=== PATIENT | female | born 2000 | race Caucasian/White ===

== ENCOUNTER 2024-08-22 13:28 | Outpatient (CLI) | payer BC, SELFPAY | END 2024-08-22 13:29 | disposition home or self-care (01) | LOC: NFLDREF 08-23 11:27 | DX: N30.01 Acute cystitis with hematuria (principal); N39.0 Urinary tract infection, site not specified | CPT/HCPCS: 87086 ==

== ENCOUNTER 2024-12-07 11:47 | Outpatient (CLI) | payer BC, SELFPAY ==
--- NOTE | 2024-12-07 12:15 | CRLHL7_ITS ---
For Patients: As a result of the Century Cures Act, medical imaging exams and procedure reports are released immediately into your electronic medical record. You may view this report before your referring provider. If you have questions, please contact your health care provider. INDICATION: Bleeding in early COMPARISON: None TECHNIQUE: First trimester obstetric ultrasound, transvaginal approach, utilizing grayscale and color Doppler. FINDINGS: The uterus is normal in size and echogenicity. No suspicious uterine masses. An intrauterine gestational sac is present with mean sac diameter measuring 0.36 centimeters consistent with a 5 week and 1 day gestation. No pole or yolk sac are visualized. There is a small nabothian cyst in the cervix. The right ovary measures 3.6 x 1.9 x 2.6 cm and contains a likely corpus luteum measuring 2.4 centimeters in greatest dimension. There is normal arterial and venous color Doppler flow. The left ovary measures 2.4 x 1.1 x 1.5 cm. Physiologic appearance without a dominant cystic lesion or solid ovarian / adnexal mass. There is normal arterial and venous color Doppler flow. No free fluid. IMPRESSION: 1. An intrauterine gestational sac is present with mean sac diameter of 0.36 centimeters consistent with a 5 week 1 day gestation. There is no pole, likely secondary to early gestational age. Consider repeat exam in 2 weeks. 2. Otherwise, the remainder of the examination is unremarkable with incidental findings as detailed above. Dictated by Abe Le MD @ 12/07/2024 12:50:34 PM (Electronically Signed)
== END 2024-12-07 11:48 | disposition home or self-care (01) ==
LOC: US 11:49
PROVIDERS: Visit Provider Obstetrics & Gynecology
DX: O20.9 Hemorrhage in early pregnancy, unspecified (principal); Z3A.01 Less than 8 weeks gestation of pregnancy
CPT/HCPCS: 76817; 84702; 86850; 86900; 86901

== ENCOUNTER 2024-12-09 11:11 | Outpatient (CLI) | payer BC, SELFPAY | END 2024-12-09 11:12 | disposition home or self-care (01) | LOC: LAB 11:18 | PROVIDERS: Visit Provider Obstetrics & Gynecology | DX: O20.9 Hemorrhage in early pregnancy, unspecified (principal) | CPT/HCPCS: 36415; 84702 ==

== ENCOUNTER 2024-12-20 13:57 | Outpatient (CLI) | payer BC, SELFPAY ==
--- NOTE | 2024-12-20 14:00 | CRLHL7_ITS ---
For Patients: As a result of the Century Cures Act, medical imaging exams and procedure reports are released immediately into your electronic medical record. You may view this report before your referring provider. If you have questions, please contact your health care provider. INDICATION: Check viability and dates TECHNIQUE: Transabdominal and transvaginal scanning was performed. Transvaginal scanning was performed to better evaluate the IUP and adnexa. Ovarian blood flow was evaluated with color-flow doppler. COMPARISON: 12/07/2024 FINDINGS: There is a living IUP with gestational age of 7 weeks 2 days by LMP and 6 weeks 6 days by today`s crown-rump length. EDC based on today`s crown-rump length is 08/09/2025. The embryonic heart rate is measured at 94 beats per minute. The placenta is not yet formed. A 1.6 x 1.1 x 0.3 cm subchorionic hemorrhage is noted. The left ovary is not visualized. A right ovarian corpus luteum is demonstrated. The right ovary measures 3.5 x 2.3 x 2.2 cm. Ovarian blood flow is demonstrated with color-flow and pulsed Doppler. No adnexal mass or free fluid is apparent. IMPRESSION: 1. Living IUP with gestational age of 6 weeks 6 days by today`s crown-rump length and EDC of 08/09/2025. 2. 1.6 x 1.1 x 0.3 cm subchorionic hemorrhage. Dictated by Daniel Monahan MD @ 12/21/2024 2:10:41 PM (Electronically Signed)
== END 2024-12-20 13:58 | disposition home or self-care (01) ==
LOC: US 13:58
PROVIDERS: Visit Provider Midwife
DX: Z34.91 Encounter for supervision of normal pregnancy, unspecified, first trimester (principal); O20.9 Hemorrhage in early pregnancy, unspecified; Z3A.01 Less than 8 weeks gestation of pregnancy
CPT/HCPCS: 76817; 87086; 87491; 87591

== ENCOUNTER 2025-01-12 11:27 | Outpatient (CLI) | payer BC, SELFPAY ==
--- NOTE | 2025-01-12 11:30 | CRLHL7_ITS ---
For Patients: As a result of the Cures Act, medical imaging exams and procedure reports are released immediately into your electronic medical record. You may view this report before your referring provider. If you have questions, please contact your health care provider. OB ULTRASOUND FIRST TRIMESTER INDICATION: Follow-up viability (low FHR on prior ultrasound). TECHNIQUE: Real time carrillo scale imaging of the fetus was performed. Transabdominal. LMP: 11/09/2024. STUART by LMP: 08/06/2025. GA: 10 w, 4 d. Previous US: Yes 12/20/2024. STUART by US: 08/09/2025. CRL: 3.4 cm. 10 w 2 d. STUART: 08/08/2025. FHR: 178 BPM. Gestational sac: 4.8 cm. Appears within normal limits. Yolk sac: 4.5 mm. Appears within normal limits. Right ovary: Within normal limits. 4.0 x 1.7 x 2.3 cm. CL. Left ovary: N/V. IMPRESSION: Single living intrauterine with sonographic gestational age 10 weeks 2 days and sonographic due date 08/08/2025. Manish Morton M.D. Diagnostic Radiologist [email or web address] SP/Dictated by: Manish Morton MD @ 01/12/2025 5:40:00 PM (Electronically Signed)
== END 2025-01-12 11:28 | disposition home or self-care (01) ==
LOC: US 11:27
PROVIDERS: Visit Provider Midwife
DX: Z34.91 Encounter for supervision of normal pregnancy, unspecified, first trimester (principal); O28.3 Abnormal ultrasonic finding on antenatal screening of mother; Z3A.10 10 weeks gestation of pregnancy
CPT/HCPCS: 76801; 83021; 86592; 86703; 86704; 86706; 86762; 86787; 86803; 86850; 86900; 86901; 87086; 87340

== ENCOUNTER 2025-03-05 17:35 | Emergency (ER) | payer BC, SELFPAY ==
[2025-03-05 17:38] VITALS: BP 120/71; PULSE 76; RESP 16; TEMP 36.8; O2SAT 100; BMI 23.0
[2025-03-05 17:59] LABS: Appearance Urine Cloudy (Clear); Bilirubin Urine Negative (Negative); Blood Urine Negative (Negative); Color Urine Yellow (Yellow); Glucose Urine Trace (Negative); Ketones Urine Negative (Negative); Leukocyte Esterase Urine 1+ (Negative); Nitrite Urine Negative (Negative); Protein Urine Negative (Negative); Urobilinogen Urine 0.2 (0.2-1.0)
--- NOTE | 2025-03-05 18:08 | ED.GENADULT ---
HPI - General Adult General Chief complaint: Headache/Migraine Stated complaint: migraines Time Seen by Provider: 03/05/25 17:36 History of Present Illness HPI narrative: This 24-year-old female comes in reporting migraine type headache that was preceded with visual changes. This headache started a couple days ago. She states that she had some flickering vision in her periphery that occurred for 20 or 30 minutes prior to onset of the headache. Her vision returned to normal when the headache occurred. She felt better yesterday but again this morning she had similar recurrence of visual changes that resolved similarly with recurrence of headache. The patient is 18 weeks with her 2nd . She is otherwise in good health. She does not report any neurologic changes otherwise. Related Data Home Medications ?Medication ?Instructions ?Recorded ?Confirmed vitamins no.121-iron 28 tab PO 12/07/24 02/09/25 mg-folic acid 800 mcg tablet magnesium chelate, mal, threon mg PO 01/12/25 02/09/25 cholecalciferol (vitamin D3) 50 50 mcg PO QDAY 02/09/25 03/05/25 mcg (2,000 unit) capsule Previous Rx's ?Medication ?Instructions ?Recorded clotrimazole 1 % topical cream 1 applic topical BID 4 weeks #30 02/23/25 grams Allergies Allergy/AdvReac Type Severity Reaction Status Date / Time Sulfa (Sulfonamide Allergy Verified 02/09/25 14:19 Antibiotics) Review of Systems Status of ROS: Reports: 10 or more systems reviewed and unremarkable except as noted in History and below Narrative: Constitutional: No fevers, no weight gain or loss. Eyes: No discharge. Visual changes as described above. HENT: No congestion, no sore throat, no ear pain. Cardiovascular: No chest pain, no palpitations. Respiratory: No shortness of breath, no wheezes, no cough. Gastrointestinal: No abdominal pain, no vomiting, no diarrhea. Genitourinary: No dysuria, no hematuria. Musculoskeletal: Normal range of motion. Skin: No rashes, no pruritis. Neurological: No dizziness, weakness, sensory change, speech change. Endo/Heme/Allergies: No bruising or bleeding. No polydipsia. Pysch: no suicidality, no anxiety, no insomnia. All other systems reviewed and are negative. [facility] Medical History Bleeding in early ?O20.9 - Hemorrhage in early , unspecified (ICD-10) Anxiety ?F41.9 - Anxiety disorder, unspecified (ICD-10) Depression ?F32.A - Depression, unspecified (ICD-10) Surgical History History of lumbar discectomy ?Z98.890 - Other specified postprocedural states (ICD-10) Family History (Updated 12/20/24 @ 15:54 by Marisa Kaur CNM) Grandmother Breast cancer Mother Ovarian cancer Father High cholesterol Sister PCOS (polycystic ovarian syndrome) Social History Narrative: , 1 child. Non smoker. No alcohol use. Smoking Status: Former smoker How often do you have a drink containing alcohol: never AUDIT-C Alcohol total score: 0 Non-prescribed substance use: denies use Exam Narrative: Exam Narrative: Constitutional: Well-developed, well-nourished, no acute distress. HEENT: Normocephalic, atraumatic. Neck: Normal range of motion. Nontender. Supple. Heart: Regular. No murmurs. Normal rate. Intact distal pulses. Lungs: Clear to auscultation. No chest discomfort. No wheezes, rhonchi, or rales. Abdomen: Normal bowel sounds. Nontender. No rebound tenderness. Gravid. Genitalia: Deferred. Back: No midline tenderness. Normal range of motion. Extremities: Normal range of motion. No injury. Skin: Intact. No rash. Warm. No erythema or pallor. Neurologic: No altered sensation. No weakness. Alert and oriented. No facial asymmetry. Tongue is midline. [id number] is normal. No pronator drift. Endocrinology Physician strength is equal bilaterally. Able to raise each leg from the bed. Psychiatric: No suicidality. No anxiety or depression. No insomnia. Nursing notes and vitals signs are reviewed. Const: Vital Signs, click to edit/add: Vital Signs - 24 hr 03/05/25 17:38 Temperature 98.3 F Pulse Rate [Pulse Oximeter] 76 Respiratory Rate 16 Blood Pressure [Ri ght Upper Arm] 120/71 Pulse Oximetry 100 Oxygen Delivery Me thod Room Air Course Vital Signs Vital signs: Initial Vital Signs Temperature 98.3 F 03/05/25 17:38 Temperature Source Temporal Artery Scan 03/05/25 17:38 Pulse Rate 76 03/05/25 17:38 Respiratory Rate 16 03/05/25 17:38 Blood Pressure 120/71 03/05/25 17:38 Blood Pressure Mean 87 03/05/25 17:38 Blood Pressure Position Sitting 03/05/25 17:38 Pulse Oximetry 100 03/05/25 17:38 Oxygen Delivery Method Room Air 03/05/25 17:38 Vital Signs Temperature 98.3 F 03/05/25 17:38 Pulse Rate 76 03/05/25 17:38 Respiratory Rate 16 03/05/25 17:38 Blood Pressure 120/71 03/05/25 17:38 Pulse Oximetry 100 03/05/25 17:38 Oxygen Delivery Method Room Air 03/05/25 17:38 Temperature 98.3 F 03/05/25 17:38 Pulse Rate 76 03/05/25 17:38 Respiratory Rate 16 03/05/25 17:38 Blood Pressure 120/71 03/05/25 17:38 Pulse Oximetry 100 03/05/25 17:38 Oxygen Delivery Method Room Air 03/05/25 17:38 Medications Administered Medications: Discontinued Medications Generic Name Dose Route Start Last Admin Trade Name Freq PRN Reason Stop Dose Admin Diphenhydramine HCl 25 mg 03/05/25 18:04 03/05/25 18:34 Diphenhydramine 50 Mg/Ml Inj IVP 03/05/25 18:05 25 mg ONCE ONE Administration Sodium Chloride 1,000 mls @ 1,000 mls/hr 03/05/25 18:15 03/05/25 18:31 0.9 % Sodium Chloride 1000 Ml IV 03/05/25 19:14 1,000 mls/hr .Q1H DUDLEY Administration Ketorolac Tromethamine 15 mg 03/05/25 18:04 03/05/25 18:40 Ketorolac 30 Mg/Ml Inj IVP 03/05/25 18:05 15 mg ONCE ONE Administration Ondansetron HCl 4 mg 03/05/25 18:04 03/05/25 18:34 Ondansetron 2 Mg/Ml Inj IVP 03/05/25 18:05 4 mg ONCE ONE Administration Medical Decision Making MDM Narrative Medical decision making narrative: This patient comes in because of migraine headache with some prodrome all visual changes. Her neurologic exam is normal. She does not have any visual changes currently. She does describe symptoms that are typical of migraine headache. She is 18 weeks with her 2nd and everything has been going well in that regard. An IV was established where the patient did receive a L of normal saline along with 15 mg of Toradol, 4 mg Zofran, and 25 mg of Benadryl. This brought sufficient relief of her symptoms. I stated that Toradol as a 1 time dose should be okay at this stage in her . She does have follow-up appointment with her OB physician in 3 days. I did use bedside ultrasound to reassure her also with normal images of her . Urinalysis is obtained and shows 5-10 white blood cells per high-powered field but the patient is not having any symptoms of dysuria. She is agreeable to waiting for culture results if she should need an antibiotic. Lab Data Labs: Lab Results 03/05/25 Range/Units 17:30 Urine Color Yellow (Yellow) Urine Appearance Cloudy A (Clear) Urine pH 6.0 (5.0-8.5) Ur Specific Sassafras 1.020 (1.000-1.030) Urine Protein Negative (Negative) Urine Glucose (UA) Trace A (Negative) Urine Ketones Negative (Negative) Urine Blood Negative (Negative) Urine Nitrite Negative (Negative) Urine Bilirubin Negative (Negative) Urine Urobilinogen 0.2 (0.2-1.0) Ur Leukocyte Esterase 1+ A (Negative) Urine RBC 0-2 (0-2) Urine WBC 5-10 A (0-5) Ur Squamous Epith Cells Moderate A (None-Few) Urine Bacteria Many A (None) Discharge Plan Discharge Clinical Impression: Migraine Patient Disposition: Home, Self-Care Condition: Improved Additional Instructions: Continue current plans. Follow up with MD as scheduled. Return if worsening. Prescriptions: No Action PNV no.[id number] acid 28 mg iron- 800 mcg tablet PO magnesium chelate, mal, threon 200 mg magnesium/scoop powder PO cholecalciferol (vitamin D3) 50 mcg (2,000 unit) capsule 50 mcg PO QDAY clotrimazole 1 % cream 1 applic topical BID 28 Days Qty: 30 1RF Follow Up/Referrals: Provider,Not a Local [Primary Care Provider, Family Practice] Stand Alone Forms: [employer] Info Instructions Procedures Ultrasound Other exam #1: Anatomical areas examined: at 18 weeks gestation. Indications: The patient has migraine headache. Ultrasounds for reassurance. Description/findings: Normal anatomy and heart activity. Eighteen weeks gestation. Impression: Normal exam.
[2025-03-05 18:22] LABS: Bacteria Urine Many; RBC Urine 0-2 (0-2); Squamous Epithelial Cell Urine Moderate (None-Few)
[2025-03-05] MEDS: 0.9 % SODIUM CHLORIDE 1000 ml 1,000 ML IV (18:31)
[2025-03-05] MEDS: diphenhydrAMINE 50 MG/ML inj 25 MG IVP (18:34)
[2025-03-05] MEDS: ONDANSETRON 2 MG/ML inj 4 MG IVP (18:34)
[2025-03-05] MEDS: KETOROLAC 30 MG/ML inj 15 MG IVP (18:40)
== END 2025-03-05 19:40 | disposition home or self-care (01) ==
PROVIDERS: Emergency Provider Emergency Medicine Emergency Medical Services
DX: G43.909 Migraine, unspecified, not intractable, without status migrainosus (principal); Z3A.18 18 weeks gestation of pregnancy
CPT/HCPCS: 76857; 81001; 87086; 96365; 96375; 99284; J1200; J1885; J2405; J7030

== ENCOUNTER 2025-03-09 07:19 | Outpatient (CLI) | payer BC, SELFPAY ==
--- NOTE | 2025-03-09 07:15 | CRLHL7_ITS ---
For Patients: As a result of the 21st Century Cures Act, medical imaging exams and procedure reports are released immediately into your electronic medical record. You may view this report before your referring provider. If you have questions, please contact your health care provider. LMP: 10/30/2024. STUART by LMP: 08/06/2025. GA: 18w, 4d. INDICATION: screen. TECHNIQUE: Transabdominal obstetric images were obtained. CERVIX: Visualized. Measurement: 3.8 cm. POSITIONING: Multiple positions. AMNIOTIC FLUID: 4.8 cm SDP. PLACENTA POSITION: Anterior. Placenta tip to internal os: 3.2 cm. DOPPLER: heart rate: 149 bpm. Umbilical cord: 3-vessel. Biometry: BPD: 4.0 cm. 18w, 1d, 32 percent. HC: 15.1 cm. 18w, 1d, 22 percent. AC: 13.9 cm. 19w, 2d, 72 percent. FL: 2.8 cm. 18w, 3d, 39 percent. FL/AC ratio: 19.83 percent. HC/AC ratio: 1.08. EFW: 258 g. Weight: 0 lbs, 9 oz. age by this US: 18w, 3d. STUART by this US: 08/07/2025. Percentile by STUART: 60 percent. SURVEY: Observed Structures Cerebellum: Yes. 1.8 cm; 18w 3d. Cisterna Magna: Yes. 4.4 mm. Nuchal Fold: Yes. 3.7 mm. Lateral Ventricle: Yes. 7.5 mm. CSP: Yes. Midline Falx: Yes. Choroid Plexus: Yes. Spine: Yes. Stomach: Yes. Abd Cord Insertion: Yes. Urinary Bladder: Yes. Kidneys: Yes. Diaphragm: Yes. Nose/lips: Yes. Orbital view: Yes. Profile: Yes. Upper Extremities: Yes. Lower Extremities: Yes. Hands: Yes. Feet: Yes. Four-Chamber Heart: Yes. LVOT: Yes. RVOT: Yes. 3VV: Yes. 3VTV: Yes. IMPRESSION: 1. Concordance of clinical and sonographic dating. 2. Incomplete visualization of the right hand due to position. 3. Residual blood products about the lower uterine segment adjacent to the placenta measures 5.5 x 1.5 x 5.3 cm. 4. Intraplacental cyst is present measuring 1.3 x 0.8 x 1.1 cm. 5. Velamentous cord insertion appears to be present. 6. The choroid plexus appears somewhat heterogeneous and prominent, probably normal. 7. Would recommend short-term follow-up in 1-2 weeks regarding the choroid plexus and right hand. Alternatively, level 2 ultrasound consultation could be considered. Manish Morton M.D. Diagnostic Radiologist [email or web address] bM/Dictated by: Manish Morton MD @ 03/09/2025 11:19:00 AM (Electronically Signed)
== END 2025-03-09 07:20 | disposition home or self-care (01) ==
LOC: US 07:19
PROVIDERS: Visit Provider Midwife
DX: Z34.82 Encounter for supervision of other normal pregnancy, second trimester (principal); O35.02X0 Maternal care for (suspected) central nervous system malformation or damage in fetus, anencephaly, not applicable or unspecified; Z3A.18 18 weeks gestation of pregnancy
CPT/HCPCS: 76805

== ENCOUNTER 2025-06-16 12:02 | Outpatient (CLI) | payer BC, SELFPAY ==
--- OUTSIDE RECORDS SUMMARY | 2025-05-15 07:51 | XMS_ITS | Encounter Summary ---
Author Organization [facility] Address [address] [place] [id number] Care Team Providers Care Wall Insulation Sprayer Name Role Phone No Ref-Primary, Physician Primary Care Provider Isabelle Martínez APRN, CNM Unavailable [phone] Camila Sousa MD Unavailable [phone] Reason for Referral * Diagnostic Imaging Ultrasound (Routine) - Pending Review Specialty Diagnoses / Procedures Referred By Contac t Referred To Contact Radiology. Diagnoses Placental abnormality, second trimester Procedures [facility] Comprehensive Single F/U Kwabena Velez MD [address] [place] [address] Phone: tel: fax: Referral ID Status Reason Start Date Expiration Date V isits Requested Visits Authorized [id number] Pending Review 04/03/2025 04/03/2026 1 1 Reason for Visit * Diagnostic Imaging Ultrasound (Routine) - Pending Review Specialty Diagnoses / Procedures Referred By Contac t Referred To Contact Radiology. Diagnoses Placental abnormality, second trimester Procedures [facility] US Comprehensive Single F/U Kwabena Velez MD [address] [place] [address] Phone: tel: fax: Referral ID Status Reason Start Date Expiration Date V isits Requested Visits Authorized [id number] Pending Review 04/03/2025 04/03/2026 1 1 Encounter Details Date Type Department Care Team (Latest Contact Info) Description 05/15/2025 7:51 AM CDT - 05/15/2025 11:59 PM CDT Hospital Encounter [facility] [place] [address] [place] [phone] Roxanna Clinton MD [address] [place], [place] [id number] Placental abnormality, second trimester Discharge Disposition: Home or Self Care Social History Tobacco Use Types Packs/Day Years Used Date Smoking Tobacco: Former Cigarettes Smokeless Tobacco: Former Comments:[id number] Alcohol Use Standard Drinks/Week Comments Not Currently 0 (1 standard drink = 0.6 oz pur e alcohol) PHQ-2 Answer Date Recorded PHQ-2 Score 0 04/11/2025 Food Insecurity Answer Date Recorded Within the past 12 months, d id you worry that your food would run out before you got money to buy more? No 04/25/2025 Within the past 12 months, d id the food you bought just not last and you didn t have money to get more? No 04/25/2025 Housing Stability Answer Date Recorded Do you have housing? (Housin g is defined as stable permanent housing and does not include staying outside in a car, in a tent, in an abandoned building, in an overnight correction, or couch-surfing.) Yes 04/25/2025 Are you worried about losing your housing? No 04/25/2025 Financial Resource Strain Answer Date R ecorded Within the past 12 months, h ave you or your family members you live with been unable to get utilities (heat, electricity) when it was really needed? No 04/25/2025 Transportation Needs Answer Date Record ed Within the past 12 months, h as lack of transportation kept you from medical appointments, getting your medicines, non-medical meetings or appointments, work, or from getting things that you need? No 04/25/2025 Interpersonal Safety Answer Date Record ed Do you feel physically and e motionally safe where you currently live? Yes 04/25/2025 Within the past 12 months, h ave you been hit, slapped, kicked or otherwise physically hurt by someone? No 04/25/2025 Within the past 12 months, h ave you been humiliated or emotionally abused in other ways by your partner or ex-partner? No 04/25/2025 Estimated Date of Delivery Comme nts Yes 08/06/2025 Based on last me nstrual period of 10/30/2024 Sex and Gender Information Value Date Recorded Sex Assigned at Not on file Legal Sex Female 7:10 AM CDT Gender Identity Not on file Sexual Orientation Not on file documented as of this encounter Medications at Time of Discharge Magnesium Oxide POWD Take by mouth. Vit-Fe Fumarate-FA ( MULTIVITAMIN PLUS IRON) 27-1 MG TABS Take by mouth daily. VITAMIN D PO Take 50 mcg by mouth. documented as of this encounter Plan of Treatment Upcoming Encounters Date Type Department Care Team (Latest Contact Info) Description 06/20/2025 9:30 AM CDT Office Visit [facility] [address]rd Floor,[address] [facility] [address] [place] [phone] Camila Sousa MD [address] [place] [address] [address] [place] [address] 06/28/2025 9:00 AM CDT Appointment [facility] [address] [place] [phone] Roxanna Clinton MD [address] [place] [address] 06/28/2025 9:30 AM CDT Office Visit [facility] [address] [place] [address] Roxanna Clinton MD [address] [place] [phone] 07/05/2025 9:45 AM CDT Office Visit [facility] [address] [facility] [address] [place] [phone] Izzy Stern MD [address] [place] [address] 07/12/2025 10:00 AM CDT Office Visit [facility] [address] [facility] [address] [phone] Camila Sousa MD [address] [place], [place] [address] 07/19/2025 9:45 AM CDT Office Visit [facility] [address] [facility] [address] [phone] Camila Sousa MD [address] [place] [phone] 07/26/2025 10:15 AM CDT Office Visit [facility] [address] [facility] [address] [phone] Camila Sousa MD [address] [place] [address] 07/31/2025 9:45 AM BYPRODUCTS SUPERVISOR Office Visit [facility] [address] [facility] [address] [phone] Camila Sousa MD [address] [place] [phone] documented as of this encounter Procedures Procedure Name Priority Date/Time Associated Diagnosis Comments [facility] COMPREHENSIVE SINGLE F/U Routine 05/15/2025 8:37 AM CDT Placental abnormality, second trimester documented in this encounter Results * [facility] US Comprehensive Single F/U (05/15/2025 8:37 AM CDT) Anatomical Region Laterality Modality Ultrasound 05/15/2025 7:55 AM CDT Impressions 05/15/2025 8:47 AM CDT IMPRESSION ----- 1. Spring at 28w 1d gestational age. 2. None of the anomalies commonly detected by ultrasound were evident in the limited anatomic survey as described above. 3. Growth parameters and estimated weight were appropriate for gestational age. 4. The amniotic fluid volume appeared normal. 5. The previously demonstrated bilobed placenta is again seen at the fundus. The main portion of the placenta is anterior with the smaller lobe present posterior. There is a bridging membrane between the lobes that contains the main umbilical vessels. The placental cord insertion is marginal and inserts into the posterior smaller lobe. This is remote from the cervix. 6. The previously demonstrated placental cyst is not seen on today's assessment. Narrative 05/15/2025 8:47 AM CDT Comp Follow Up ----- Pat. Name: AURA FLOR Study Date: 05/15/2025 7:55am Pat. NO: [id number] Referring MD: KAREN DICKERSON Site: Physician Office Assistant: Lynn Ibarra RDMS : 2000 Age: 24 ----- INDICATION ----- Placental cyst Bilobed placenta with marginal cord insertion METHOD ----- Transabdominal ultrasound examination. View: Sufficient ----- Spring . Number of fetuses: 1 DATING ----- Date Details Gest. age STUART LMP 10/30/2024 28 w + 1 d 08/06/2025 Previous U/S 12/20/2024 GA, GA 6 w + 6 d 27 w + 5 d 08/09/2025 U/S 05/15/2025 based upon AC, BPD, Femur, HC 28 w + 3 d 08/04/2025 Assigned dating based on the LMP, selected on 03/20/2025 28 w + 1 d 08/06/2025 GENERAL EVALUATION ----- Cardiac activity present. FHR 135 bpm. movements: present. Presentation: breech Placenta: Bi-lobed placenta. Main anterior placenta with smaller posterior lobe connected by thin isthmus on maternal right. Cord inserts into edge of posterior lobe and vessels travel along isthmus to the main anterior lobe. Umbilical cord: 3 vessel cord Amniotic fluid: normal MVP, MVP 3.5 cm BIOMETRY ----- BPD 73.2 mm 29w 3d Hadlock OFD 89.8 mm 26w 5d Nicolaides HC 260.2 mm 28w 2d Hadlock Cerebellum tr 33.5 mm 29w 2d Nicolaides AC 237.6 mm 28w 0d 40% Hadlock Femur 51.8 mm 27w 5d Hadlock Weight Calculation: EFW 1,164 g 33% Hadlock EFW (lb,oz) 2 lb 9 oz EFW by Hadlock ([id number]) Head / Face / Neck Biometry: Drilling Manager 4.7 mm CM 2.1 mm ANATOMY ----- The following structures appear normal: Head / Neck Cranium. Head size. Head shape. Lateral ventricles. Midline falx. Cavum septi pellucidi. Cerebellum. Cisterna magna. Thalami. Face Profile. Nose. Heart / Thorax 4-chamber view. [id number] view. Diaphragm. Abdomen Stomach. Kidneys. Bladder. Spine Cervical spine. Thoracic spine. Lumbar spine. The following structures were documented previously: Face Lips. Heart / Thorax RVOT view. LVOT view. Spine Sacral spine. sex: female. MATERNAL STRUCTURES ----- Cervix Suboptimal Right Ovary Not examined Left Ovary Not examined RECOMMENDATION ----- Thank-you for referring your patient for follow up ultrasound assessment. I discussed the findings on today's ultrasound with the patient. In shared decision making, will plan for q4 week growth assessment in our office (32 and 36 weeks). Return to primary provider for continued care. If you have questions regarding today's evaluation or if we can be of further service, please contact the [facility]. I spent a total of 10 minutes (excluding the ultrasound interpretation) on the date of this encounter including preparing to see the patient (reviewing medical records/tests), in direct iicd-kt-cdjq contact with the patient counseling and discussing the plan of care, documenting the visit in the electronic medical record, and communicating with other health cattle care worker and/or care coordination. Procedure Note Roxanna Clinton MD - 05/15/2025 Comp Follow Up ----- Pat. Name: AURA FLOR Study Date: 05/15/2025 7:55am Pat. NO: [id number] Referring MD: KAREN DICKERSON Site: Physician Office Assistant: Lynn Ibarra RDMS : 2000 Age: 24 ----- INDICATION ----- Placental cyst Bilobed placenta with marginal cord insertion METHOD ----- Transabdominal ultrasound examination. View: Sufficient ----- Spring . Number of fetuses: 1 DATING ----- DateDetailsGest. age STUART LMP 2/3/053572 w + 1 d 08/06/2025 Previous U/S 12/20/2024 GA, GA6 w + 6 d27 w + 5 d 08/09/2025 U/S 05/15/2025ased upon AC, BPD, Femur, HC28 w + 3 d 08/04/2025 Assigned dating based on the LMP, selected on w + 1 d 08/06/2025 GENERAL EVALUATION ----- Cardiac activity present. FHR 135 bpm. movements: present.Presentation: breech Placenta: Bi-lobed placenta. Main anterior placenta with smaller posteriorlobe connected by thin isthmus on maternal right. Cord inserts into edgeof posterior lobe and vessels travel along isthmus to the main anterior lobe. Umbilical cord: 3 vessel cord Amniotic fluid: normal MVP, MVP 3.5 cm BIOMETRY ----- BPD 73.2mm 29w 3dHadlock OFD 89.8mm 26w 5dNicolaides HC 260.2mm 28w 2dHadlock Cerebellum tr 33.5mm 29w 2dNicolaides AC 237.6mm 28w 0d 40%Hadlock Femur 51.8mm 27w 5dHadlock Weight Calculation: EFW 1,164g 33%Hadlock EFW (lb,oz) 2 lb 9oz EFW by Hadlock([id number]) Head / Face / Neck Biometry: Drilling Manager 4.7mm CM 2.1mm ANATOMY ----- The following structures appear normal: Head / Neck Cranium. Head size. Head shape.Lateral ventricles. Midline falx. Cavum septi pellucidi. Cerebellum.Cisterna magna. Thalami. Face Profile. Nose. Heart / Thorax 4-chamber view. 4-pvlinq-bvbbbynzzci. Diaphragm. Abdomen Stomach. Kidneys. Bladder. Spine Cervical spine. Thoracic spine.Lumbar spine. The following structures were documented previously: Face Lips. Heart / Thorax RVOT view. LVOT view. Spine Sacral spine. sex: female. MATERNAL STRUCTURES ----- Cervix Suboptimal Right Ovary Not examined Left Ovary Not examined RECOMMENDATION ----- Thank-you for referring your patient for follow up ultrasoundassessment. I discussed the findings on today's ultrasound with the patient. In shareddecision making, will plan for q4 week growth assessment in our office (32and 36 weeks). Return to primary provider for continued care. If you have questions regarding today's evaluation or if we can be offurther service, please contact the [facility]. I spent a total of 10 minutes (excluding the ultrasound interpretation) onthe date of this encounter including preparing to see the patient(reviewing medical records/tests), in direct ykck-ez-aatp contact with the patient counseling and discussingthe plan of care, documenting the visit in the electronic medical record,and communicating with other health cattle care worker and/or care coordination. IMPRESSION ----- 1. Spring at 28w 1d gestational age. 2. None of the anomalies commonly detected by ultrasound were evident inthe limited anatomic survey as described above. 3. Growth parameters and estimated weight were appropriate forgestational age. 4. The amniotic fluid volume appeared normal. 5. The previously demonstrated bilobed placenta is again seen at thefundus. The main portion of the placenta is anterior with the smaller lobepresent posterior. There is a bridging membrane between the lobes that contains the main umbilicalvessels. The placental cord insertion is marginal and inserts into theposterior smaller lobe. This is remote from the cervix. 6. The previously demonstrated placental cyst is not seen on today'sassessment. Kwabena Velez MD [facility] ORDERABLES Edit ed Result - Final documented in this encounter Visit Diagnoses Diagnosis Placental abnormality, second trimester documented in this encounter Care Teams Wall Insulation Sprayer Relationship Specialty Start Date End Date No Ref-Primary, Physician PCP - General 03/12/25 Isabelle Martínez APRN CNM [address] [address] Certified Nurse Marketing Education Teacher litigation assistant 04/04/25 Camila Sousa MD [address] [place] [phone] litigation assistant 04/18/25 documented as of this encounter
--- OUTSIDE RECORDS SUMMARY | 2025-05-15 08:30 | XMS_ITS | Encounter Summary ---
Author Organization [facility] Address [address] [place] [id number] Care Team Providers Care Sap Pp Consultant Name Role Phone No Ref-Primary, Physician Primary Care Provider Isbaelle Martínez APRN, CNM Unavailable [phone] Camila Sousa MD Unavailable [phone] Reason for Referral * Diagnostic Imaging Ultrasound (Routine) - Pending Review Specialty Diagnoses / Procedures Referred By Contac t Referred To Contact Radiology. Diagnoses Marginal insertion of umbilical cord affecting management of mother Procedures [facility] US Comprehensive Single F/U Roxanna Clinton MD [address] [place] [id number] Phone: tel: fax: Referral ID Status Reason Start Date Expiration Date V isits Requested Visits Authorized [id number] Pending Review 05/15/2025 05/15/2026 1 1 * Diagnostic Imaging Ultrasound (Routine) - Pending Review Specialty Diagnoses / Procedures Referred By Contac t Referred To Contact Radiology. Diagnoses Marginal insertion of umbilical cord affecting management of mother Procedures [facility] US Comprehensive Single F/U Roxanna Clinton MD [address] [place] [address] Phone: tel: fax: Referral ID Status Reason Start Date Expiration Date V isits Requested Visits Authorized [id number] Pending Review 05/15/2025 05/15/2026 1 1 Reason for Visit * Reason Comments Ultrasound RL2- MCI, bilobed pl peacenta Encounter Details Date Type Department Care Team (Late st Contact Info) Description 05/15/2025 8:30 AM CDT Office Visit [facility] [place] [address] [place], [place] [phone] Roxanna Clinton MD [address] [place], [place] [phone] Marginal insertion of umbilical cord affecting management of mother (Primary Dx); related condition in third trimester Social History Tobacco Use Types Packs/Day Years Used Date Smoking Tobacco: Former Cigarettes Smokeless Tobacco: Former Comments:[id number] Alcohol Use Standard Drinks/Week Comments Not Currently [...] in an abandoned building, in an overnight long-term, or couch-surfing.) Yes 04/25/2025 Are you worried [...] on file documented as of this encounter Progress Notes * Roxanna Clinton MD - 05/15/2025 8:30 AM CDT The patient was seen for an ultrasound in the [facility] today. For a detailed report of the ultrasound examination, please see the ultrasound report which can be found under the imaging tab. If you have questions regarding today's evaluation or if we can be of further service, please contact the [facility]. Roxanna Clinton MD Process Environmental Technician, INTERNATIONAL AFFAIRS VICE PRESIDENT Maternal- Medicine documented in this encounter Nursing Notes * Manisha Silvestre RN - 05/15/2025 8:30 AM CDT Pt at [facility] for ultrasound. Pt denies bleeding, leaking fluid, contractions, swelling, high blood pressure, headache or other concerns. Education provided about today's ultrasound. SBAR given to . documented in this encounter Miscellaneous Notes * Addendum Note - Manisha Slivestre RN - 05/15/2025 8:30 AM CDTAddended by: MANISHA SILVESTRE on: 05/15/2025 09:05 AM Modules accepted: Orders documented in this encounter Plan of Treatment Upcoming Encounters Date Type Department Care Team (Latest Contact Info) Description 06/20/2025 9:30 AM CDT Office Visit [facility] [address] [facility] [address] [place] [phone] Camila Sousa MD [address] [place], [place] [phone] 06/28/2025 9:00 AM CDT Appointment [facility] [address] [place] [phone] Roxanna Clinton MD [address] [place], [place] [address] 06/28/2025 9:30 AM CDT Office Visit [facility] [address] [place], [place] [phone] Roxanna Clinton MD [address] [place], [place] [address] 07/05/2025 9:45 AM CDT Office Visit [facility] [address] [facility] [address] [phone] Izzy Stern MD [address] [place], [place] [address] 07/12/2025 10:00 AM CDT Office Visit [facility] [address] [facility] [address] [phone] Camila Sousa MD [address] [place], [place] [address] 07/19/2025 9:45 AM CDT Office Visit [facility] [address] [facility] [address] [place] [phone] Camila Sousa MD [address] [place], [place] [address] 07/26/2025 10:15 AM CDT Office Visit [facility] [address] [facility] [address] [phone] Caimla Sousa MD [address] [place] [address] 07/31/2025 9:45 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 Office Visit [facility] [address] [facility] [address] [phone] Camila Sousa MD [address] [place], [place] [address] Scheduled Orders Name Type Priority Associated Diagnoses Orde r Schedule [facility] US Comprehensive Single F/U Imaging Routine Marginal insertion of umbilical cord affecting management of mother Expected: 06/26/2025 (Approximate), Expires: 05/15/2026 documented as of this encounter Results * [facility] US Comprehensive Single F/U (06/12/2025 10:08 AM CDT) Anatomical Region Laterality Modality Ultrasound 06/12/2025 9:43 AM CDT Impressions 06/12/2025 10:24 AM CDT IMPRESSION ----- 1. Patient here for a growth scan secondary to a diagnosis of marginal cord insertion. She is at 32w1d gestational age. 2. Active single fetus with behavior appropriate for gestational age. 3. Appropriate interval growth. 4. Estimated weight is appropriate for gestational age. 5. None of the anomalies commonly detected by ultrasound were evident in the limited anatomic survey described above. 6. Normal amniotic fluid volume. 7. Marginal cord insertion and bilobed placenta Narrative 06/12/2025 10:24 AM CDT Comp Follow Up ----- Pat. Name: AURA FLOR Study Date: 06/12/2025 9:43am Pat. NO: [id number] Referring MD: KAERN DICKERSON Site: [employer]: Silvina Sultana RDMS : 2000 Age: 24 ----- INDICATION ----- Bilobed placenta with marginal cord insertion METHOD ----- Transabdominal ultrasound examination. View: Sufficient ----- Sprnig . Number of fetuses: 1 DATING ----- Date Details Gest. age STUART LMP 10/30/2024 32 w + 1 d 08/06/2025 Previous U/S 12/20/2024 GA, GA 6 w + 6 d 31 w + 5 d 08/09/2025 U/S 06/12/2025 based upon AC, BPD, Femur, HC 32 w + 6 d 08/01/2025 Assigned dating based on the LMP, selected on 03/20/2025 32 w + 1 d 08/06/2025 GENERAL EVALUATION ----- Cardiac activity present. FHR 143 bpm. movements: present. Presentation: breech Placenta: Bi-lobed placenta. Main anterior placenta with smaller posterior lobe connected by thin isthmus on maternal right. Cord inserts into edge of posterior lobe and vessels travel along isthmus to the main anterior lobe. Umbilical cord: 3 vessel cord Amniotic fluid: Amount of AF: normal. MVP 6.6 cm BIOMETRY ----- BPD 81.3 mm 32w 5d Hadlock OFD 112.0 mm 34w 0d Nicolaides HC 308.7 mm 34w 3d Hadlock Cerebellum tr 40.0 mm 34w 0d Nicolaides AC 278.0 mm 31w 6d 40% Hadlock Femur 62.2 mm 32w 2d Hadlock Weight Calculation: EFW 1,943 g 44% Hadlock EFW (lb,oz) 4 lb 5 oz EFW by Hadlock ([id number]) Head / Face / Neck Biometry: College Football Coach 4.1 mm CM 5.1 mm ANATOMY ----- The following structures appear normal: Head / Neck Cranium. Head size. Head shape. Lateral ventricles. Midline falx. Cavum septi pellucidi. Cerebellum. Cisterna magna. Thalami. Face Lips. Profile. Nose. Heart / Thorax 4-chamber view. RVOT view. LVOT view. [id number] view. Diaphragm. Abdomen Stomach. Kidneys. Bladder. Spine Cervical spine. Thoracic spine. Lumbar spine. Sacral spine. sex: female. MATERNAL STRUCTURES ----- Cervix Visualized Cervical length 33.2 mm Right Ovary Not examined Left Ovary Not examined RECOMMENDATION ----- Continue surveillance with growth scan at 36 weeks. Thank you for the opportunity to participate in the care of this patient. If you have questions regarding today's evaluation or if we can be of further service, please contact the [facility]. anomalies may be present but not detected Procedure Note Hi Malloy MD - 06/12/2025 Comp Follow Up ----- Pat. Name: AURA FLOR Study Date: 06/12/2025 9:43am Pat. NO: [id number] Referring MD: KAREN DICKERSON Site: [employer]: Silvina Sultana RDMS : 2000 Age: 24 ----- INDICATION ----- Bilobed placenta with marginal cord insertion METHOD ----- Transabdominal ultrasound examination. View: Sufficient ----- Spring . Number of fetuses: 1 DATING ----- DateDetailsGest. age STUART LMP w + 1 d 08/06/2025 Previous U/S 12/20/2024 GA, GA6 w + 6 d31 w + 5 d 08/09/2025 U/S 06/12/2025ased upon AC, BPD, Femur, HC32 w + 6 d 08/01/2025 Assigned dating based on the LMP, selected on w + 1 d 08/06/2025 GENERAL EVALUATION ----- Cardiac activity present. FHR 143 bpm. movements: present.Presentation: breech Placenta: Bi-lobed placenta. Main anterior placenta with smaller posteriorlobe connected by thin isthmus on maternal right. Cord inserts into edgeof posterior lobe and vessels travel along isthmus to the main anterior lobe. Umbilical cord: 3 vessel cord Amniotic fluid: Amount of AF: normal. MVP 6.6 cm BIOMETRY ----- BPD 81.3mm 32w 5dHadlock OFD 112.0mm 34w 0dNicolaides HC 308.7mm 34w 3dHadlock Cerebellum tr 40.0mm 34w 0dNicolaides AC 278.0mm 31w 6d 40%Hadlock Femur 62.2mm 32w 2dHadlock Weight Calculation: EFW 1,943g 44%Hadlock EFW (lb,oz) 4 lb 5oz EFW by Hadlock([id number]) Head / Face / Neck Biometry: College Football Coach 4.1mm CM 5.1mm ANATOMY ----- The following structures appear normal: Head / Neck Cranium. Head size. Head shape.Lateral ventricles. Midline falx. Cavum septi pellucidi. Cerebellum.Cisterna magna. Thalami. Face Lips. Profile. Nose. Heart / Thorax 4-chamber view. RVOT view. LVOT view.[id number] view. Diaphragm. Abdomen Stomach. Kidneys. Bladder. Spine Cervical spine. Thoracic spine.Lumbar spine. Sacral spine. sex: female. MATERNAL STRUCTURES ----- Cervix Visualized Cervical length 33.2 mm Right Ovary Not examined Left Ovary Not examined RECOMMENDATION ----- Continue surveillance with growth scan at 36 weeks. Thank you for the opportunity to participate in the care of this patient.If you have questions regarding today's evaluation or if we can be offurther service, please contact the [facility]. anomalies may be present but not detected IMPRESSION ----- 1. Patient here for a growth scan secondary to a diagnosis ofmarginal cord insertion. She is at 32w1d gestational age. 2. Active single fetus with behavior appropriate for gestational age. 3. Appropriate interval growth. 4. Estimated weight is appropriate for gestational age. 5. None of the anomalies commonly detected by ultrasound were evident inthe limited anatomic survey described above. 6. Normal amniotic fluid volume. 7. Marginal cord insertion and bilobed placenta Roxanna Clinton MD [facility] ORDERABLES Edited Result - Final documented in this encounter Visit Diagnoses Diagnosis Marginal insertion of umbilical cord affecting management of mother- Primary related condition in third trimester Unspecified complication of , antepartum Marginal insertion of umbilical cord affecting management of mother documented in this encounter Care Teams Sap Pp Consultant Relationship Specialty Start Date End Date No Ref-Primary, Physician PCP - General 03/12/25 Isabelle Martínez APRN CNM [address] [place] [address] Certified Nurse Tomato Paste Maker echo vascular technologist 04/04/25 Camila Sousa MD [address] [place] [address] echo vascular technologist 04/18/25 documented as of this encounter
--- OUTSIDE RECORDS SUMMARY | 2025-05-23 10:00 | XMS_ITS | Encounter Summary ---
Author Organization [facility] [place] [address] Care Team Providers Care Key Cutter Name Role Phone No Ref-Primary, Physician Primary Care Provider Isabelle Martínez APRN CNM Unavailable [phone] Camila Sousa MD Unavailable [phone] Isabelle Martínez APRN CNM Unavailable [phone] Reason for Referral * Consultation (Routine: Next available opening) - Pending Review Specialty Diagnoses / Procedures Referred By Contac t Referred To Contact Diagnoses History of lumbar discectomy Scoliosis, unspecified scoliosis type, unspecified spinal region Camila Sousa MD [address] [address] Phone: tel: fax: Referral ID Status Reason Start Date Expiration Date V isits Requested Visits Authorized [id number] Pending Review 05/23/2025 05/23/2026 1 1 Question Answer Reason for Referral: Consultation Patient Scheduling Instructions: [email or web address] will call you to coordinate your care as prescribed by your provider. If you don't hear from a personal financial representative within 2 business days, please call . Additional Information: 29 weeks with history of L5 discectomy ane scoliosis, discuss regional analgesia concerns Comments Please be aware that coverage of these services is subject to the terms and limitations of your health insurance plan. Call member services at your health plan with any benefit or coverage questions. [email or web address] will call you to coordinate your care as prescribed by your provider. If you don't hear from a personal financial representative within 2 business days, please call . Reason for Visit * Reason Comments Care 29w2d Encounter Details Date Type Department Care Team (Latest Contact Info) Description 05/23/2025 10:00 AM CDT Office Visit [facility] [place] [address] [facility] [address] [place] [address] Camila Sousa MD [address] [place] [address] Supervision of other high risk pregnancies, third trimester (Primary Dx); Gastroesophageal reflux disease without esophagitis; History of lumbar discectomy; Scoliosis, unspecified scoliosis type, unspecified spinal region; Placental abnormality in third trimester Social History Tobacco Use Types Packs/Day Years Used Date Smoking Tobacco: Former Cigarettes Smokeless Tobacco: Former Tobacco Cessation:Counseling Given: Not Answered Comments:[id number] Alcohol Use Standard Drinks/Week Comments Not Currently [...] in an abandoned building, in an overnight fdc, or couch-surfing.) Yes 04/25/2025 Are you worried [...] on file documented as of this encounter Last Filed Vital Signs Vital Sign Reading Time Taken Comments Blood Pressure 112/70 05/23/2025 9:52 AM CDT Pulse 80 05/23/2025 9:52 AM CDT Temperature - - Respiratory Rate - - Oxygen Saturation - - Inhaled Oxygen Concentration - - Weight 79.2 kg (174 lb 9.6 oz) 05/23/2025 9:52 A M CDT Height 177 cm (5' 9.69) 05/23/2025 9:52 AM CDT Body Mass Index 25.28 05/23/2025 9:52 AM CDT documented in this encounter Patient Instructions * Patient Instructions* Emilia Carlin MA - 05/23/2025 10:00 AM CDT Images from the original note were not included. Thank you for trusting us with your care! Please be aware, if you are on [employer], you may see your results prior to your providers' review. If labs are abnormal, we will call or message you on [employer] with a follow up plan. If you need to contact us for questions about: Symptoms, Scheduling & Medical Questions: Non-urgent (2-3 day response), send [employer] message. For urgent (needing response today), call [phone]. Prescriptions: Please call your Pharmacy Billing: [facility] [phone] or [facility]: [phone] Weeks 26 to 30 of Your : Care Instructions You're starting your last trimester. You'll probably feel your baby moving around more. Your back may ache as your body gets used to your baby's size and length. Take care of yourself, and pay attention to what your body needs. Talk to your doctor about getting the Tdap shot. It will help protect your against whoopingcough (pertussis). Also ask your doctor about flu and COVID-19 shots if you haven't had them yet. If your blood type is Rh negative, you may be given a shot of Rh immune globulin (such as RhoGAM). Itcan help prevent problems for your baby. You may have [place]-Guan contractions. They are single or several strong contractions without a pattern. These are practice contractions but not the start of labor. 4 ways to take care of yourself during weeks 26 to 30 of Be kind to yourself. Take breaks when you're tired. Change positions often. Don't sit for too long or stand for too long. At work, rest during breaks if you can. If you don't get breaks, talk to your doctor about writing a letter to your employer to request them. Avoid fumes, chemicals, and tobacco smoke. Be sexual if you want to. You may be interested in sex, or you may not. Everyone is different. Sex is okay unless your doctor tells you not to. Your belly can make it hard to find good positions for sex. [place] and explore. Watch for signs of labor. These signs include: Menstrual-like cramps. Or you may have pain or pressure in your pelvis that happens in a pattern. About 6 or more contractions in an hour (even after rest and a glass of water). A low, dull backache that doesn't go away when you change positions. An increase or change in vaginal discharge. Light vaginal bleeding or spotting. Your water breaking. Know what to do if you think you are having contractions. Drink 1 or 2 glasses of water. Lie down on your left side for at least an hour. While on your side, feel the top of your belly to see if it's tight. Write down your contractions for an hour. Time how long it is from the start of one contraction to the start of the next. Call your doctor if you have regular contractions. Follow-up care is a gamez part of your treatment and safety. Be sure to make and go to all appointments, and call your doctor if you are having problems. It's also a good idea to know your test resultsand keep a list of the medicines you take. When should you call for help? Call 911 anytime you think you may need emergency care. For example, call if: You have severe vaginal bleeding. You have soaked through one or more pads in an hour, and the bleeding is not slowing down. You have sudden, severe pain in your belly that does not go away. You have chest pain, are short of breath, or cough up blood. You passed out (lost consciousness). You have a seizure. You see or feel the umbilical cord. You think you are about to deliver your baby and can't make it safely to the hospital or birthing center. Call your doctor now or seek immediate medical care if: You have vaginal bleeding. You have belly pain. You have a fever. You are dizzy or lightheaded, or you feel like you may faint. You have signs of a blood clot in your leg (called a deep vein thrombosis), such as: Pain in the calf, back of the knee, thigh, or groin. Swelling in your leg or groin. A color change on the leg or groin. The skin may be reddish or purplish. You have symptoms of preeclampsia, such as: Sudden swelling of your face, hands, or feet. New vision problems (such as dimness, blurring, or seeing spots). A severe headache that will not go away. You have a sudden release or slow trickle of fluid from your vagina. This may mean your water has broken. You've been having regular contractions for an hour at less than 37 weeks. This means that you've had at least 6 contractions within 1 hour, even after you change your position and drink fluids. You notice that your baby has stopped moving or is moving less than normal. You have signs of heart failure, such as: New or increased shortness of breath. New or worse swelling in your legs, ankles, or feet. Sudden weight gain, such as more than 2 to 3 pounds in a day or 5 pounds in a week. Feeling so tired or weak that you cannot do your usual activities. You have symptoms of a urinary tract infection. These may include: Pain or burning when you urinate. A frequent need to urinate without being able to pass much urine. Pain in your low back (below the rib cage and above the waist). Blood in your urine. Watch closely for changes in your health, and be sure to contact your doctor if: You have vaginal discharge that smells bad. You feel sad, anxious, or hopeless for more than a few days. You have skin changes, such as a rash, itching, or a yellow color to your skin. You have other concerns about your . If you have labor signs at 37 weeks or more If you have signs of labor at 37 weeks or more, your doctor may tell you to call when your labor becomes more active. During active labor: Contractions happen more often and at regular intervals (about every 3 to 5 minutes). Contractions last longer (about 60 seconds or more). Contractions get stronger and are hard to talk through. Call 911 anytime you think you may need emergency care. For example, call if: You have severe vaginal bleeding. You have soaked through one or more pads in an hour, and the bleeding is not slowing down. You have sudden, severe pain in your belly that does not go away. You have chest pain, are short of breath, or cough up blood. You passed out (lost consciousness). You have a seizure. You see or feel the umbilical cord. You think you are about to deliver your baby and can't make it safely to the hospital or birthing center. Call your doctor now or seek immediate medical care if: You have vaginal bleeding. You have belly pain. You have a fever. You are dizzy or lightheaded, or you feel like you may faint. You have signs of a blood clot in your leg (called a deep vein thrombosis), such as: Pain in the calf, back of the knee, thigh, or groin. Swelling in your leg or groin. A color change on the leg or groin. The skin may be reddish or purplish. You have symptoms of preeclampsia, such as: Sudden swelling of your face, hands, or feet. New vision problems (such as dimness, blurring, or seeing spots). A severe headache that will not go away. You have a sudden release or slow trickle of fluid from your vagina. This may mean your water has broken. You've been having regular contractions for an hour. This means that you've had at least 6 contractions within 1 hour, even after you change your position and drink fluids. You notice that your baby has stopped moving or is moving less than normal. You have symptoms of a urinary tract infection. These may include: Pain or burning when you urinate. A frequent need to urinate without being able to pass much urine. Pain in your low back (below the rib cage and above the waist). Blood in your urine. Watch closely for changes in your health, and be sure to contact your doctor if: You have vaginal discharge that smells bad. You feel sad, anxious, or hopeless for more than a few days. You have skin changes, such as a rash, itching, or a yellow color to your skin. You have other concerns about your . Where can you learn more? Go to https://www.[employer]/patiented Enter S999 in the search box to learn more about Weeks 26 to 30 of Your : Care Instructions. Current as of: January 25, 2024 Content Version: 14.5 ?? 3997-9966 [employer]. Care instructions adapted under license by your healthcare professional. If you have questions about a medical condition or this instruction, always ask your healthcare professional. [employer] disclaims any warranty or liability for your use of this information. Counting Your Baby's Kicks: Care Instructions Overview Counting your baby's kicks is one way your doctor can tell that your baby is healthy. You will probably feel your baby move for the first time between 16 and 22 weeks. The movement may feel like flutters rather than kicks. Your baby may move more at certain times of the day. When you are active, you may notice less kicking than when you are resting. At your visits, your doctor will ask whether the baby is active. In your last trimester, your doctor may ask you to count the number of times you feel your baby move. Follow-up care is a gamez part of your treatment and safety. Be sure to make and go to all appointments, and call your doctor if you are having problems. It's also a good idea to know your test resultsand keep a list of the medicines you take. How do you count kicks? A common method of checking your baby's movement is to note the length of time it takes to count 10movements (such as kicks, flutters, or rolls). Pick your baby's most active time of day to count. This may be any time from morning to evening. If you don't feel 10 movements in an hour, have something to eat or drink and count for another hour. If you don't feel at least 10 movements in the 2-hour period, call your doctor. Do not use an at-home Doppler heart monitor in place of counting movements. When should you call for help? Call your doctor now or seek immediate medical care if: You feel fewer than 10 movements in a 2-hour period. You noticed that your baby has stopped moving or is moving less than normal. Watch closely for changes in your health, and be sure to contact your doctor if you have any problems. Where can you learn more? Go to https://www.[employer]net/patiented Enter U048 in the search box to learn more about Counting Your Baby's Kicks: Care Instructions. Current as of: January 25, 2024 Content Version: 14.5 ?? 5886-3802 [employer]. Care instructions adapted under license by your healthcare professional. If you have questions about a medical condition or this instruction, always ask your healthcare professional. [employer] disclaims any warranty or liability for your use of this information. documented in this encounter Progress Notes * Camila Sousa MD - 05/23/2025 10:00 AM CDT CHRIS Visit Note 05/22/25 S: Doing well. Some BH ctx but nothing regular or painful. Denies VB or LOF. + FM. Denies DORMAN, vision changes, SOB, RUQ pain or increased swelling in her extremities. Patient does notice some GERD andalso notices almost daily sensation in middle of chest almost like pressure when she goes to bed and is laying flat, resolves when sits in recliner. Education completed today includes breast feeding, [facility] hand out, contraception, counting movements, signs of pre-term labor, when to present to birthplace, post depression, GBS, getting enough iron, labor induction, nitrous oxide, doulas, vitamin K, and hypertension disorders. preferences reviewed: Medicated Labor support: Feeding plans : Breastfed Contraception planned: Mirena IUD The following labs were ordered today: GCT, CBC w platelets, and Anti-treponema Water consent form was not given. Blood type: No results found for: ABO, RH, , Rhogam was notgiven. TDAP was given. O: See OB Flowsheet A/P: 24 yo @ 29w2d presents for CHRIS Visit 1) PNC: Rh positive, Yumiko negative, RI, Infectious lab Neg/NR, Hgba1c 5.0, EOB labs pended for todayfrom last visit. Tdap today. GBS at 36 weeks. 2) Genetic screening: Low risk NIPT, Anatomy US with DUDLEY, PAID INTERNSHIP, Placental cyst measuring 1.3 cm and velamentous cord insertion. Level 2 US with bilobed placenta, marginal cord insertion, PAID INTERNSHIP and placental cyst measuring 1.2 cm. Declined further genetic screening. 3) Marginal cord insertion/Bilobed placenta: plan q4 week growth scans at this time. Last 05/15/25: EFW 33%ile, AC 40%ile. Bi-lobed placenta. Main anterior placenta with smaller posterior lobe connected by thin isthmus on maternal right. Cord inserts into edge of posterior lobe and vessels travel along isthmus to the main anterior lobe. Previously visualized placental cyst resolved. Next scheduled06/12/25. 4) History lumbar discectomy 2022 (L5) and scoliosis: Plan anesthesia consult 5) Anxiety/Depression: Mood today excellent, no concerns, No medications 6) Delivery planning: Pain control: With last delivery wanted Epidural, could not be placed, and delivered unmedicated, plan anesthesia consult, PAC consult placed, may also be interested in IV medications and Nitrous/Feeding: Breastfeed/Contraception:Mirena IUD 7) GERD: Rx for prevacid given today 8) RTC in 2 weeks for CHRIS visit Camila Sousa MD documented in this encounter Nursing Notes * Emilia Carlin MA - 05/23/2025 10:00 AM CDT Chief Complaint Patient presents with Care 29w2d documented in this encounter Plan of Treatment Upcoming Encounters Date Type Department Care Team (Latest Contact Info) Description 06/20/2025 9:30 AM CDT Office Visit [facility] [address] [facility] [address] [phone] Camila Sousa MD [address] [address] 06/28/2025 9:00 AM CDT Appointment [facility] [address] [place] [phone] Roxanna Clinton MD [address] [place], [place] [address] 06/28/2025 9:30 AM CDT Office Visit [facility] [address] [place], [place] [phone] Roxanna Clinton MD [address] [place], [place] [address] 07/05/2025 9:45 AM CDT Office Visit [facility] [address] [facility] [address] [phone] Izzy Stern MD [address] [id number] 07/12/2025 10:00 AM CDT Office Visit [facility] [address] [facility] [address] [phone] Camila Sousa MD [address] [place] [address] 07/19/2025 9:45 AM CDT Office Visit [facility] [address] [facility] [address] [phone] Camila Sousa MD [address] [place] [address] 07/26/2025 10:15 AM CDT Office Visit [facility] [address] [facility] [address] [phone] Camila Sousa MD [address] [place] [address] 07/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 Office Visit [facility] [address] [facility] [address] [phone] Camila Sousa MD [address] [place], [place] [phone] Scheduled Referrals Name Type Priority Associated Diagnoses Orde r Schedule Adult PAC Visit Referral Referral Routine: Next available opening History of lumbar discectomy Scoliosis, unspecified scoliosis type, unspecified spinal region Expected: 05/23/2025 (Approximate), Expires: 05/23/2026 documented as of this encounter Visit Diagnoses Diagnosis Supervision of other high risk pregnancies, third trimester- Primary Gastroesophageal reflux disease without esophagitis Esophageal reflux History of lumbar discectomy Personal history of surgery to other organs Scoliosis, unspecified scoliosis type, unspecified spinal region Placental abnormality in third trimester documented in this encounter Care Teams Key Cutter Relationship Specialty Start Date End Date No Ref-Primary, Physician PCP - General 03/12/25 Isabelle Martínez APRN CNM [address] [place], [place] [phone] Certified Nurse Director Of Public Safety eye care professional 04/04/25 Camila Sousa MD [address] [place] [address] eye care professional 04/18/25 Isabelle Martínez APRN CNM [address] [place], [place] [phone] Assigned OBGYN Provider 05/19/25 documented as of this encounter
--- OUTSIDE RECORDS SUMMARY | 2025-05-23 10:45 | XMS_ITS | Encounter Summary ---
Author Organization [facility] Address [address] [place] [address] Care Team Providers Care Paint Preparer Name Role Phone No Ref-Primary, Physician Primary Care Provider Isabelle Martínez APRN CNM Unavailable [phone] Camila Sousa MD Unavailable [phone] Isabelle Martínez APRN CNM Unavailable [phone] Encounter Details Date Type Department Care Team (Late st Contact Info) Description 05/23/2025 10:45 AM CDT Lab [facility] [address] [place] [address] Camila Sousa MD [address] [address] [place], [place] [address] Supervision of high risk in second trimester Social History Tobacco Use Types Packs/Day Years Used Date Smoking Tobacco: Former Cigarettes Smokeless Tobacco: Former Comments:[id number] Alcohol Use Standard Drinks/Week Comments Not Currently [...] Answer Date Recorded Do you have housing? (Shashi lee is defined as stable permanent housing and does not include staying outside in a car, in a tent, in an abandoned building, in an overnight fpc, or couch-surfing.) Yes 04/25/2025 Are you worried [...] on file documented as of this encounter Plan of Treatment Upcoming Encounters Date Type Department Care Team (Latest Contact Info) Description 06/20/2025 9:30 AM CDT Office Visit [facility] [place] [address]rd Floor,[address] [facility] [address] [place] [phone] Camlia Sousa MD [address] [place], [place] [address] 06/28/2025 9:00 AM CDT Appointment [facility] [place] [address] [place] [phone] Roxanna Clinton MD [address] [place] [address] 06/28/2025 9:30 AM CDT Office Visit [facility] [place] [address] [place] [address] Roxanna Clinton MD [address] [place] [address] 07/05/2025 9:45 AM CDT Office Visit [facility] [address] [facility] [address] [phone] Izzy Stern MD [address] [address] 07/12/2025 10:00 AM CDT Office Visit [facility] [address] Floor,[address] [facility] [address] [phone] Camila Sousa MD [address] [phone] 07/19/2025 9:45 AM CDT Office Visit [facility] [address] [facility] [address] [phone] Camila Sousa MD [address] [place], [place] [address] 07/26/2025 10:15 AM CDT Office Visit [facility] [address] [facility] [address] [phone] Camila Sousa MD [address] [place], [place] [address] 07/31/2025 9:45 AM TOWER ERECTOR HELPER Office Visit [facility] [address] [facility] [address] [place] [phone] Camila Sousa MD [address] [place] [address] documented as of this encounter Procedures Procedure Name Priority Date/Time Associated Diagnosis Comments VARICELLA ZOSTER VIRUS ANTIBODY IGG Routine 05/23/2025 11:00 AM CDT Supervision of high risk in second trimester TREPONEMA ABS W REFLEX TO RPR AND TITER Routine 05/23/2025 11:00 AM CDT Supervision of high risk in second trimester VITAMIN D DEFICIENCY SCREENING Routine 05/23/2025 11:00 AM CDT Supervision of high risk in second trimester GLUCOSE TOLERANCE GEST SCREEN 1 HOUR Routine 05/23/2025 11:00 AM CDT Supervision of high risk in second trimester CBC WITH PLATELETS Routine 05/23/2025 11 :00 AM CDT Supervision of high risk in second trimester documented in this encounter Results * 25- OH-Vitamin D (05/23/2025 11:00 AM CDT) Vitamin D, Total (25-Hydroxy) 48 20 - 50 ng/mL 05/23/2025 6:54 PM CDT [facility] Comment:optimum levels Blood STRUCTURE OF LEFT UPPER LIMB / Unknown Venipuncture / Unknown 05/23/2025 11:00 AM CDT 05/23/2025 11:04 AM CDT Narrative [facility] - 05/23/2025 6:54 PM CDT Season, race, dietary intake, and treatment affect the concentration of 26-neucdgh-Qsicvct D. Values may decrease during winter months and increase during summer months. Vitamin D determination is routinely performed by an immunoassay specific for 25 hydroxyvitamin D3. If an individual is on vitamin D2(ergocalciferol) supplementation, please specify 25 OH vitamin D2 and D3 level determination by LCMSMS test VITD23. Isabelle Martínez APRN CNM LAB - BLOOD ORDERABLES F inal Result [facility] [address] [facility], [address] [place] [address] * (ABNORMAL) CBC with platelets (05/23/2025 11:00 AM CDT) WBC Count 8.21 4.00 - 11.00 10e3/uL 05/23/2025 11:43 AM CDT [facility] RBC Count 3.71(L) 3.80 - 5.20 10e6/uL 05/23/2025 11:43 AM CDT [facility] Hemoglobin 12.2 11.7 - 15.7 g/dL 05/23/2025 11:43 AM CDT [facility] Hematocrit 34.4(L) 35.0 - 47.0 % 05/23/2025 11:43 AM CDT [facility] MCV 92.7 78.0 - 100.0 fL 05/23/2025 11:43 AM CDT [facility] MCH 32.9 26.5 - 33.0 pg 05/23/2025 11:43 AM CDT [facility] MCHC 35.5 31.5 - 36.5 g/dL 05/23/2025 11:43 AM CDT [facility] RDW 13.6 10.0 - 15.0 % 05/23/2025 11:43 AM CDT [facility] Platelet Count 205 150 - 450 10e3/uL 05/23/2025 11:43 AM CDT [facility] Blood STRUCTURE OF LEFT UPPER LIMB / Unknown Venipuncture / Unknown 05/23/2025 11:00 AM CDT 05/23/2025 11:04 AM CDT Isabelle Martínez DAIRY FARM WORKER CN LAB - BLOOD ORDERABLES F inal Result [facility] Care Lab [address] [facility], [address] [place] [address] * Treponema Abs w Reflex to RPR and Titer (05/23/2025 11:00 AM CDT) Treponema Antibody Total Nonreactive Nonreactive 05/23/2025 10:11 PM CDT [facility] Blood STRUCTURE OF LEFT UPPER LIMB / Unknown Venipuncture / Unknown 05/23/2025 11:00 AM CDT 05/23/2025 11:04 AM CDT us Isabelle Martínez DAIRY FARM WORKER CN LAB - BLOOD ORDERABLES F inal Result Performing Organization Address City/[facility]/ZIP Co de Phone Number [facility]/PROT/ENDO [facility] Core/Prot/Endo [address] [facility], Room [address] [facility] Specialty Lab [address] [facility], Room [address] [address] * (ABNORMAL) Glucose tolerance gest screen 1 hour (05/23/2025 11:00 AM CDT) Glu Gest Screen 1hr 50g 138(H) 70 - 129 mg/dL 05/23/2025 12:01 PM CDT [facility] Blood STRUCTURE OF LEFT UPPER LIMB / Unknown Venipuncture / Unknown 05/23/2025 11:00 AM CDT 05/23/2025 11:04 AM CDT Narrative [facility] - 05/23/2025 12:01 PM CDT This is a screening test for Gestational Diabetes Mellitus. If results are 130 mg/dL or greater, a Standard 100 gram Gestational 3 hour Glucose Tolerance should be performed. us Isabelle Reinjaya DAIRY FARM WORKER CN LAB - BLOOD ORDERABLES F inal Result [facility] Care Lab [address] [facility], [address] [place] [address] * Varicella Zoster Virus Antibody IgG (05/23/2025 11:00 AM CDT) Varicella Zoster Virus Antibody IgG Interpretation Positive 05/23/2025 10:09 PM CDT [facility] Varicella Zoster Virus Antibody IgG Instrument Value 3.34 <1.00 S/CO 05/23/2025 10:09 PM CDT [facility]PROT/END O Blood STRUCTURE OF LEFT UPPER LIMB / Unknown Venipuncture / Unknown 05/23/2025 11:00 AM CDT 05/23/2025 11:04 AM CDT Narrative [facility]ENDO - 05/23/2025 10:09 PM CDT Suggests previous exposure or immunization and probable immunity. Isabelle Martínez APRN, CNM LAB - BLOOD ORDERABLES F inal Result [facility]/PROT/ENDO Specialty Core/Prot/Endo [address] [facility], Room [address] [facility] Specialty Lab [address] [facility], [address] [address] documented in this encounter Visit Diagnoses Diagnosis Supervision of high risk in second trimester Unspecified high-risk documented in this encounter Care Teams Paint Preparer Relationship Specialty Start Date End Date No Ref-Primary, Physician PCP - General 03/12/25 Isabelle Martínez APRN CNT[facility] [address] [place], [place] [address] Certified Nurse Dental Insurance Biller chart writer 04/04/25 Camila Sousa MD [address] [place], [place] [address] chart writer 04/18/25 Isabelle Martínez APRN CNM [address] [place] [address] Assigned OBGYN Provider 05/19/25 documented as of this encounter
--- OUTSIDE RECORDS SUMMARY | 2025-06-07 08:30 | XMS_ITS | Encounter Summary ---
Author Organization [facility] Address [address] [place] [address] Care Team Providers Care Title Camera Operator Name Role Phone No Ref-Primary, Physician Primary Care Provider Isabelle Martínez APRN CNM Unavailable [phone] Camila Sousa MD Unavailable [phone] Isabelle Martínez APRN CNM Unavailable [phone] Reason for Visit * Reason Comments Care 31w3d Encounter Details Date Type Department Care Team (Latest Contact Info) Description 06/07/2025 8:30 AM CDT Office Visit [facility] [place] [address] [facility] [address] [place] [phone] Camila Sousa MD [address] [place], [place] [address] Supervision of other high risk pregnancies, third trimester (Primary Dx); Placental abnormality in third trimester; H/O lumbar discectomy Social History Tobacco Use Types Packs/Day Years Used Date Smoking Tobacco: Former Cigarettes Smokeless Tobacco: Former Tobacco Cessation:Counseling Given: Not Answered Comments:[id number] Alcohol Use Standard Drinks/Week Comments Not Currently [...] in an abandoned building, in an overnight alf, or couch-surfing.) Yes 04/25/2025 Are you worried [...] Sign Reading Time Taken Comments Blood Pressure 112/71 06/07/2025 8:38 AM CDT Pulse 69 06/07/2025 8:38 AM CDT Temperature - - Respiratory Rate - - Oxygen Saturation - - Inhaled Oxygen Concentration - - Weight 79.3 kg (174 lb 12.8 oz) 06/07/2025 8:38 AM CDT Height 177 cm (5' 9.69) 06/07/2025 8:38 AM CDT Body Mass Index 25.3 06/07/2025 8:38 AM CDT documented in this encounter Patient Instructions * Patient Instructions* Emilia Carlin, JASWINDER - 06/07/2025 8:30 AM CDT Images from the original note were not included. Thank you for trusting us with your care! Please be aware, if you are on Mychart, you may see your results prior to your providers' review. If labs are abnormal, we will call or message you on BrainMasst with a follow up plan. If you need to contact us for questions about: Symptoms, Scheduling & Medical Questions: Non-urgent (2-3 day response), send SkySQL message. For urgent (needing response today), call [phone]. Prescriptions: Please call your Pharmacy Billing: [facility] [phone] or [facility]: [phone] Weeks 30 to 32 of Your : Care Instructions Your baby is growing more every day. Its eyes can open and close, and it may have hair on its head.Your baby may sleep 20 to 45 minutes at a time and is more active at certain times. You should feel your baby move several times every day. Your baby now turns less and kicks more. This is a good time to tour your hospital or birthing center. You may also want to find childcare if needed. To ease heartburn Avoid foods that make your symptoms worse, such as chocolate, spicy foods, and caffeine. Avoid bending over or lying down after meals. Do not eat for 2 hours before bedtime. Take antacids like Tums, but don't take ones that have sodium bicarbonate, magnesium trisilicate, or aspirin. To care for large, swollen veins (varicose veins) Try to avoid standing for long periods of time. Sit with your feet propped up. Wear support hose. Get some exercise every day, like walking or swimming. Counting your baby's kicks Your doctor may ask you to count your baby's movements, such as kicks, flutters, or rolls. Find a quiet place, and get comfortable. Write down your start time. Count your baby's movements (except hiccups). When your baby has moved 10 times, you can stop counting. Write down how many minutes it took. If an hour goes by and you don't feel 10 movements, have something to eat or drink. Count for another hour. If you don't feel at least 10 movements in the 2- hour period, call your doctor. Follow-up care is a gamez part of your treatment and safety. Be sure to make and go to all appointments, and call your doctor if you are having problems. It's also a good idea to know your test resultsand keep a list of the medicines you take. Where can you learn more? Go to https://www.Bigpoint.net/patiented Enter X471 in the search box to learn more about Weeks 30 to 32 of Your : Care Instructions. Current as of: January 25, 2024 Content Version: 14.5 ?? 8510-8290 [employer]. Care instructions adapted under license by your healthcare professional. If you have questions about a medical condition or this instruction, always ask your healthcare professional. [employer] disclaims any warranty or liability for your use of this information. Learning About Control After Childbirth control is any method used to prevent . If you have vaginal sex without control, you could get --even if you haven't started having periods again. You're less likely to get while , but it's still possible. Finding control that works for you can help avoid an unplanned . There are many kinds of control. Each has pros and cons. Find what works for you. Talk to your doctor if you've just given or are . Long-acting reversible contraception (LARC). These are placed inside your body by a doctor. They can prevent for years. Examples include: An implant (hormonal). Copper intrauterine device (IUD). Hormonal IUDs. Short-acting hormonal methods. These release hormones. Examples include: Combination control pills (the pill). Skin patches. A vaginal ring. A shot. Mini-pills. Choose progestin-only options soon after giving . Barrier methods. Use these every time you have vaginal sex. Examples include: External (male) condoms. Internal (female) condoms. Diaphragms. Cervical caps. Sponges. Spermicides. These kill sperm or stop sperm from moving. They can be gels, creams, foams, films, ortablets. Use them before vaginal sex. Examples include: Nonoxynol-9. pH regulator gel. Permanent control (sterilization). This can be an option if you're sure that you don't want to get later. Examples include: Vasectomy. Having tubes tied (tubal ligation). Emergency contraception. This is a backup method. Use it if you didn't use control or your control method failed. Examples include: Copper and hormonal IUDs. Emergency contraceptive pills. Fertility awareness. You'll learn when you are most likely to become (are fertile). You can avoid vaginal sex at that time. It's also called: Natural family planning. The rhythm method. . This is most effective when all of these are true: Your baby is younger than 6 months old. You're and not bottle-feeding at all. You aren't having periods. Follow-up care is a gamez part of your treatment and safety. Be sure to make and go to all appointments, and call your doctor if you are having problems. It's also a good idea to know your test resultsand keep a list of the medicines you take. Where can you learn more? Go to https://www.Bigpoint.net/patiented Enter X408 in the search box to learn more about Learning About Control After Childbirth. Current as of: January 25, 2024 Content Version: 14.5 ?? 0455-1065 [employer]. Care instructions adapted under license by your healthcare professional. If you have questions about a medical condition or this instruction, always ask your healthcare professional. [employer] disclaims any warranty or liability for your use of this information. documented in this encounter Progress Notes * Camila Sousa MD - 06/07/2025 8:30 AM CDT CHRIS Visit 06/07/25 S: Macy doing well today. Reports minimal anxiety overall this AM. No headaches, vision changes, RUQ pain, concerning swelling, vaginal bleeding, or concerning vaginal discharge. Reports good fetalmovement. Has a 5 yo son at home who is starting school and excited to meet baby sister. Reports that sleep is understandably difficult given frequent urination overnight but she reports that is manageable. She has not been able to schedule anesthesia consult. Was wondering today if she can resume chiropractic visits given her ongoing sciatica. Has been fasting since 9 PM last night. Otherwise noconcerns. O: See OB Flowsheet A/P: 24 yo @ 31w3d presents for CHRIS Visit 1) PNC: Rh positive, Yumiko negative, RI, Infectious lab Neg/NR, Hgba1c 5.0, GCT 138, 3 hour GTT planned today after appointment. S/p Tdap. GBS at 36 weeks. 2) Genetic screening: Low risk NIPT, Anatomy US with DUDLEY, BALLISTICS TEACHER, Placental cyst measuring 1.3 cm and velamentous cord insertion. Level 2 US with bilobed placenta, marginal cord insertion, BALLISTICS TEACHER and placental cyst measuring 1.2 cm. Declined [...] discectomy 2022 (L5) and scoliosis: Plan anesthesia consult, material scheduler will meet with her today to schedule. 5) Anxiety/Depression: Mood today is good, no concerns, No medications 6) Delivery planning: Pain control: With last delivery wanted Epidural, could not be placed, and delivered unmedicated, plan anesthesia consult, PAC consult placed, may also be interested in IV medications and Nitrous/Feeding: Breastfeed/Contraception:Mirena IUD 7) Sciatica - does report ongoing back pain and was wondering if she can resume chiropractic visits. Discussed with her that this is safe as long as her chiropractor knows that she is and does not perform any maneuvers that would be inappropriate in . She indicates that her chiropractor knows her well and is well-informed on medical history and current . 8) Flu vaccine - offered but declined by patient today. 9) RTC in 2 weeks for CHRIS visit Saroj Sorensen, MS3 documented in this encounter Nursing Notes * Emilia Carlin MA - 06/07/2025 8:30 AM CDT Chief Complaint Patient presents with Care 31w3d documented in this encounter Plan of Treatment Upcoming Encounters Date Type Department Care Team (Latest Contact Info) Description 06/20/2025 9:30 AM CDT Office Visit [facility] [address] 3[address] Floor,[address] [facility] [address] [phone] Camila Sousa MD [address] [id number] 06/28/2025 9:00 AM CDT Appointment [facility] Maternal [facility] [address] [place] [phone] Roxanna Clinton MD [address] [place], [place] [address] 06/28/2025 9:30 AM CDT Office Visit [facility] Maternal Medicine [facility] [address] [place] [address] Roxanna Clinton MD [address] [place], [place] [address] 07/05/2025 9:45 AM CDT Office Visit [facility] [address] Floor,[address] [facility] [address] [phone] Izzy Stern MD [address] [address] 07/12/2025 10:00 AM CDT Office Visit [facility] [address] [facility] [address] [phone] Camila Sousa MD [address] [place], [place] [address] 07/19/2025 9:45 AM CDT Office Visit [facility] [address] Floor,[address] [facility] [address] [phone] Camila Sousa MD [address] [place] [phone] 07/26/2025 10:15 AM CDT Office Visit [facility] [address] [facility] [address] [phone] Camila Sousa MD [address] [place] [address] 07/31/2025 9:45 AM DENITRATOR OPERATOR Office Visit [facility] [address] [facility] [address] [phone] Camila Sousa MD [address] [place], [place] [address] documented as of this encounter Visit Diagnoses Diagnosis Supervision of other high risk pregnancies, third trimester- Primary Placental abnormality in third trimester H/O lumbar discectomy Personal history of surgery to other organs documented in this encounter Care Teams Title Camera Operator Relationship Specialty Start Date End Date No Ref-Primary, Physician PCP - General 03/12/25 Isabelle Martínez APRN CNM [address] [place] [address] Certified Nurse Rn Trauma loss control engineer 04/04/25 Camila Sousa MD [address] [place] [address] loss control engineer 04/18/25 Isabelle Martínez APRN CNM [address] [place] [address] Assigned OBGYN Provider 05/19/25 documented as of this encounter
--- OUTSIDE RECORDS SUMMARY | 2025-06-07 09:00 | XMS_ITS | Encounter Summary ---
Author Organization [place] Address [address] [place] [address] Care Team Providers Care Metabolic Specialist Name Role Phone No Ref-Primary, Physician Primary Care Provider Isabelle Martínez APRN CNM Unavailable [phone] Camila Sousa MD Unavailable [phone] Isabelle Martínez APRN CNM Unavailable [phone] Encounter Details Date Type Department Care Team (Late st Contact Info) Description 06/07/2025 9:00 AM CDT Lab [facility] Laboratory [address] [place] [address] Camila Sousa MD [address] [facility] [address] [place], [place] [address] Abnormal glucose affecting Social History Tobacco Use Types Packs/Day Years Used Date Smoking Tobacco: Former Cigarettes Smokeless Tobacco: Former Comments:[id number] Alcohol Use Standard Drinks/Week Comments Not Currently [...] in an abandoned building, in an overnight [place] [facility], or couch-surfing.) Yes 04/25/2025 Are you worried [...] Description 06/20/2025 9:30 AM CDT Office Visit [facility] [place] [address]rd Floor,[address] [place] [facility] [address] [place] [address] Camila Sousa MD [address] [place], [place] [address] 06/28/2025 9:00 AM CDT Appointment [facility] [place] [address] [place] [phone] Roxanna [place] MD [address] [place] [address] 06/28/2025 9:30 AM CDT Office Visit [facility] [place] [address] [place] [address] Roxanna [place] MD [address] [place] [address] 07/05/2025 9:45 AM CDT Office Visit [facility] [address] [place] [facility] [address] [phone] Izzy Stern MD [address] [address] 07/12/2025 10:00 AM CDT Office Visit [facility] [address] [place] [facility] [address] [phone] Camila Sousa MD [address] [place] [address] 07/19/2025 9:45 AM CDT Office Visit [facility] [address] [place] [facility] [address] [address] Camila Sousa MD [address] [place] [address] 07/26/2025 10:15 AM CDT Office Visit [facility] [address] [place] [facility] [address] [phone] Camila Sousa MD [address] [place] [address] 07/31/2025 9:45 AM NUT PROCESS HELPER Office Visit [facility] [place] [address] [place] [facility] [address] [place] [phone] Camila Sousa MD [address] [place] [address] documented as of this encounter Procedures Procedure Name Priority Date/Time Associated Diagnosis Comments GESTATIONAL GLUCOSE TOLERANCE TESTING, 3 HOUR Routine 06/07/2025 12:03 PM CDT Abnormal glucose affecting GESTATIONAL GLUCOSE TOLERANCE TESTING, 2 HOUR Routine 06/07/2025 11:04 AM CDT Abnormal glucose affecting GESTATIONAL GLUCOSE TOLERANCE TESTING, 1 HOUR Routine 06/07/2025 10:10 AM CDT Abnormal glucose affecting GESTATIONAL GLUCOSE TOLERANCE TESTING, FASTING Routine 06/07/2025 9:05 AM CDT Abnormal glucose affecting GESTATIONAL GLUCOSE TOLERANCE TESTING, 3 HOUR Routine 06/07/2025 9:05 AM CDT Abnormal glucose affecting documented in this encounter Results * Gestational Glucose Tolerance Testing, 3 Hour (06/07/2025 12:03 PM CDT) Gestational GTT 3 Hr Post Dose 80 60 - 139 mg/dL 06/07/2025 12:49 PM CDT UR LABORATORY Blood STRUCTURE OF LEFT UPPER LIMB / Unknown Venipuncture / Unknown 06/07/2025 12:03 PM CDT 06/07/2025 12:03 PM CDT Narrative UR LABORATORY - 06/07/2025 12:49 PM CDT Blood glucose levels collected at fasting, 1 hour, 2 hours and 3 hours after ingestion of 100g glucose during . The diagnosis of gestational diabetes mellitus is made when 2 or more of the glucose values listed below are met or exceeded: Fasting 95 mg/dL 1 hour 180 mg/dL 2 hour 155 mg/dL 3 hour 140 mg/dL us Jyothi FLYNN LAB - BLOOD ORDERABL ES Final Result UR LABORATORY [facility] Lab [address] [facility], Room [place] [phone] * (ABNORMAL) Gestational Glucose Tolerance Testing, 2 Hour (06/07/2025 11:04 AM CDT) Gestational GTT 2 Hr Post Dose 161(H) 60 - 154 mg/dL 06/07/2025 11:39 AM CDT UR LABORATORY Blood STRUCTURE OF LEFT UPPER LIMB / Unknown Venipuncture / Unknown 06/07/2025 11:04 AM CDT 06/07/2025 11:04 AM CDT Jyothi FLYNN LAB - BLOOD ORDERABL ES Final Result Performing Organization Address [facility] Co de Phone Number UR LABORATORY [facility] Lab [address] [place] [address], Room [address] [phone] * Gestational Glucose Tolerance Testing, 1 Hour (06/07/2025 10:10 AM CDT) Gestational GTT 1 Hr Post Dose 175 60 - 179 mg/dL 06/07/2025 10:46 AM CDT UR LABORATORY Blood STRUCTURE OF LEFT UPPER LIMB / Unknown Venipuncture / Unknown 06/07/2025 10:10 AM CDT 06/07/2025 10:10 AM CDT us Jyothi Woods APRN [facility] LAB - BLOOD ORDERABL ES Final Result UR LABORATORY [facility] [address] [place] [address], Room [address] [phone] * Gestational Glucose Tolerance Testing, Fasting (06/07/2025 9:05 AM CDT) Gestational GTT Fasting 87 60 - 94 mg/dL 06/07/2025 9:36 AM CDT UR LABORATORY Blood STRUCTURE OF LEFT UPPER LIMB / Unknown Venipuncture / Unknown 06/07/2025 9:05 AM CDT 06/07/2025 9:06 AM CDT Jyothi Woods APRN, CNM LAB - BLOOD ORDERABL ES Final Result UR LABORATORY [facility] Acute [facility] Lab [address] [facility], [address] [place] [address] documented in this encounter Visit Diagnoses Diagnosis Abnormal glucose affecting documented in this encounter Care Teams Metabolic Specialist Relationship Specialty Start Date End Date No Ref-Primary, Physician PCP - General 03/12/25 Isabelle Martínez APRN CNM [address] [place], [place] [phone] Certified Nurse Senior Accountant office inspector 04/04/25 Camila Sousa MD [address] [place], [place] [phone] office inspector 04/18/25 Isabelle Martínez APRN CNM [address] [place], [place] [address] Assigned OBGYN Provider 05/19/25 documented as of this encounter
--- OUTSIDE RECORDS SUMMARY | 2025-06-12 09:42 | XMS_ITS | Encounter Summary ---
Author Organization [place] Address [address] [place] [address] Care Team Providers Care Metal Roaster Name Role Phone No Ref-Primary, Physician Primary Care Provider Isabelle Martínez APRN CNM Unavailable [phone] Camila Sousa MD Unavailable [phone] Isabelle Martínez APRN CNM Unavailable [phone] Reason for Referral * Diagnostic Imaging Ultrasound (Routine) - Pending Review Specialty Diagnoses / Procedures Referred By Contac t Referred To Contact Radiology. Diagnoses Marginal insertion of umbilical cord affecting management of mother Procedures [facility] US Comprehensive Single F/U Roxanna [place] MD [address] [place] [address] Phone: tel: fax: Referral ID Status Reason Start Date Expiration Date V isits Requested Visits Authorized [id number] Pending Review 05/15/2025 05/15/2026 1 1 Reason for Visit * Diagnostic Imaging Ultrasound (Routine) - Pending Review Specialty Diagnoses / Procedures Referred By Contjose t Referred To Contact Radiology. Diagnoses Marginal insertion of umbilical cord affecting management of mother Procedures [facility] US Comprehensive Single F/U Roxanna [place] MD [address] [place] [address] Phone: tel: fax: Referral ID Status Reason Start Date Expiration Date V isits Requested Visits Authorized [id number] Pending Review 05/15/2025 05/15/2026 1 1 Encounter Details Date Type Department Care Team (Latest Contact Info) Description 06/12/2025 9:42 AM CDT - 06/12/2025 11:59 PM CDT Hospital Encounter [facility] [place] [address] [place] [phone] Hi Malloy MD [address] [place] [address] Marginal insertion of umbilical cord affecting management of mother Discharge Disposition: Home or Self Care Social History Tobacco Use Types Packs/Day Years Used Date Smoking Tobacco: Former Cigarettes Smokeless Tobacco: Former Comments:[id number] Alcohol Use Standard Drinks/Week Comments Not Currently [...] in an abandoned building, in an overnight retirement, or couch-surfing.) Yes 04/25/2025 Are you worried [...] this encounter Medications at Time of Discharge LANsoprazole (PREVACID) [address] capsuleIndications :Gastroesophageal reflux disease without esophagitis Take 1 capsule (15 mg) by mouth daily. 30 capsule 05/23/2025 Magnesium Oxide POWD Take by mouth. Vit-Fe Fumarate-FA ( MULTIVITAMIN PLUS IRON) 27-1 MG TABS Take by mouth daily. VITAMIN D PO Take 50 mcg by mouth. documented as of this encounter Plan of Treatment Upcoming Encounters Date Type Department Care Team (Latest Contact Info) Description 06/20/2025 9:30 AM CDT Office Visit [facility] [address] 3rd Floor,[address] [place] [facility] [address] [place] [phone] Camila Sousa MD [address] [place], [place] [address] [facility] [address] [place] [address] 06/28/2025 9:00 AM CDT Appointment [facility] [address] [place] [phone] Roxanna [place] MD [address] [place], [place] [address] [place] [address] 06/28/2025 9:30 AM CDT Office Visit [facility] [address] [place] [address] Roxanna [place] MD [address] [address] 07/05/2025 9:45 AM CDT Office Visit [facility] [address] [place] [facility] [address] [address] Izzy Stern MD [address] [place] [address] 07/12/2025 10:00 AM CDT Office Visit [facility] [address] [place] [facility] [address] [address] Camila Sousa MD [address] [place] [address] 07/19/2025 9:45 AM CDT Office Visit [facility] [address] [place] [facility] [address] [address] Camila Sousa MD [address] [place] [address] 07/26/2025 10:15 AM CDT Office Visit [facility] [address] [place] [facility] [address] [address] Camila Sousa MD [address] [place] [address] 07/31/2025 9:45 AM TOP COATER Office Visit [facility] [address] [place] [facility] [address] [place] [phone] Camila Sousa MD [address] [place] [address] documented as of this encounter Procedures Procedure Name Priority Date/Time Associated Diagnosis Comments [facility] US COMPREHENSIVE SINGLE F/U Routine 06/12/2025 10:08 AM CDT Marginal insertion of umbilical cord affecting management of mother documented in this encounter Results * [facility] US Comprehensive Single F/U (06/12/2025 10:08 [...] CDT Comp Follow Up ----- Pat. Name: MACY FLOR Study Date: 06/12/2025 9:43am Pat. NO: [id number] Referring MD: KAREN DICKERSON Site: Pocket Builder: Silvina MICHAEL Sultana : 2000 Age: 24 ----- INDICATION ----- [...] 4 lb 5 oz EFW by Hadlock ([id number]) Head / Face / Neck Biometry: Tipple Supervisor 4.1 mm CM 5.1 mm ANATOMY ----- The following structures appear normal: Head / Neck Cranium. Head size. Head shape. Lateral ventricles. Midline falx. Cavum septi pellucidi. Cerebellum. Cisterna magna. Thalami. Face Lips. Profile. Nose. Heart / Thorax 4-chamber view. RVOT view. LVOT view. 6-ctlsbx-wnzrist view. Diaphragm. Abdomen Stomach. Kidneys. Bladder. Spine [...] 06/12/2025 Comp Follow Up ----- Pat. Name: MACY FLOR Study Date: 06/12/2025 9:43am Pat. NO: [id number] Referring MD: KAREN DICKERSON Site: Pocket Builder: Silvina Sultana RDMS : 2000 Age: 24 ----- INDICATION ----- Bilobed placenta with marginal cord insertion METHOD ----- Transabdominal ultrasound examination. View: Sufficient ----- Spring . Number of fetuses: 1 DATING ----- DateDetailsGest. age STUART LMP w + 1 d 08/06/2025 Previous U/S 12/20/2024 GA, GA6 w + 6 d31 w + 5 d 08/09/2025 U/S 5based upon AC, BPD, Femur, HC32 w + [...] EFW (lb,oz) 4 lb 5oz EFW by José Luislock([id number]) Head / Face / Neck Biometry: Tipple Supervisor 4.1mm CM 5.1mm ANATOMY ----- The following structures appear normal: Head / Neck Cranium. Head size. Head shape.Lateral ventricles. Midline falx. Cavum septi pellucidi. Cerebellum.Cisterna magna. Thalami. Face Lips. Profile. Nose. Heart / Thorax 4-chamber view. RVOT view. LVOT view.6-xunfzv-zjjfeiw view. Diaphragm. Abdomen Stomach. Kidneys. Bladder. Spine [...] 7. Marginal cord insertion and bilobed placenta us Roxanna [place] MD [facility] US ORDERABLES Edited Result - Final documented in this encounter Visit Diagnoses Diagnosis Marginal insertion of umbilical cord affecting management of mother documented in this encounter Care Teams Metal Roaster Relationship Specialty Start Date End Date No Ref-Primary, Physician PCP - General 03/12/25 Isabelle Martínez APRN CNM [address] [place], [place] [address] Certified Nurse Executive Legal Secretary sanitarian 04/04/25 Camila Sousa MD [address] [place] [address] sanitarian 04/18/25 Isabelle Martínez APRN CNM [address] [place], [place] [phone] Assigned OBGYN Provider 05/19/25 documented as of this encounter
--- OUTSIDE RECORDS SUMMARY | 2025-06-12 10:30 | XMS_ITS | Encounter Summary ---
Author Organization [place] Address [address] [place] [address] Care Team Providers Care Packer Insulation Name Role Phone No Ref-Primary, Physician Primary Care Provider Isabelle Martínez APRN CNM Unavailable [phone] Camila Sousa MD Unavailable [phone] Isabelle Martínez APRN CNM Unavailable [phone] Reason for Visit * Reason Comments Ultrasound RL2-marginal cord in sertion and bilobed placenta Encounter Details Date Type Department Care Team (Late st Contact Info) Description 06/12/2025 10:30 AM CDT Office Visit [facility] [place] [address] [place] [address] Hi Malloy MD [address] [place] [address] Marginal insertion of umbilical cord affecting management of mother (Primary Dx) Social History Tobacco Use Types Packs/Day Years Used Date Smoking Tobacco: Former Cigarettes Smokeless Tobacco: Former Comments:[id number] Alcohol Use Standard Drinks/Week Comments Not Currently [...] in an abandoned building, in an overnight usp, or couch-surfing.) Yes 04/25/2025 Are you worried [...] as of this encounter Progress Notes * Hi Malloy MD - 06/12/2025 10:30 AM CDT Please refer to ultrasound report under 'Imaging' Studies of 'Chart Review' tabs. Hi Malloy M.D. documented in this encounter Nursing Notes * Ning Clayton RN - 06/12/2025 10:30 AM CDT Patient reports positive movement, denies pain, leaking of fluid, or bleeding. Education provided to patient on today's ultrasound. SBAR given to SCOTT MARINELLI, see their note in Epic. documented in this encounter Plan of Treatment Upcoming Encounters Date Type Department Care Team (Latest Contact Info) Description 06/20/2025 9:30 AM CDT Office Visit [facility] [address] [place] [facility] [address] [phone] Camila Sousa MD [address] [place], [place] [address] 06/28/2025 9:00 AM CDT Appointment [facility] [address] [place] [phone] Roxanna [place] MD [address] [address] 06/28/2025 9:30 AM CDT Office Visit [facility] [address] [place] [address] Roxanna [place] MD [address] [place], [place] [address] 07/05/2025 9:45 AM CDT Office Visit [facility] [address] [place] [facility] [address] [phone] Izzy Stern MD [address] [facility] [address] [place], [place] [address] 07/12/2025 10:00 AM CDT Office Visit [facility] [address] [place] [facility] [address] [address] Camila Sousa MD [address] [place], [place] [address] 07/19/2025 9:45 AM CDT Office Visit [facility] [address] [place] [facility] [address] [address] Camila Sousa MD [address] [place], [place] [address] 07/26/2025 10:15 AM CDT Office Visit [facility] [address] [place] [facility] [address] [address] Camila Sousa MD [address] [place], [place] [address] 07/31/2025 9:45 AM SENIOR ELECTRICAL CONTROLS ENGINEER Office Visit [facility] [address] [place] [facility] [address] [address] Camila Sousa MD [address] [place], [place] [address] documented as of this encounter Visit Diagnoses Diagnosis Marginal insertion of umbilical cord affecting management of mother- Primary documented in this encounter Care Teams Packer Insulation Relationship Specialty Start Date End Date No Ref-Primary, Physician PCP - General 03/12/25 Isabelle Martínez APRN CNM [address] [place], [place] [address] Certified Nurse Licensed Physical Therapist Assistant conventions assistant 04/04/25 Camila Sousa MD [address] [place] [address] conventions assistant 04/18/25 Isabelle Martínez APRN CNM [address] [place] [address] Assigned OBGYN Provider 05/19/25 documented as of this encounter
--- OUTSIDE RECORDS SUMMARY | 2025-06-14 11:15 | XMS_ITS | Encounter Summary ---
Author Organization [place] Address Formerly [facility] [place] [address] Care Team Providers Care Invasive Cardiovascular Technologist Name Role Phone No Ref-Primary, Physician Primary Care Provider Isabelle Martínez APRN CNM Unavailable [phone] Camila Sousa MD Unavailable [phone] Isabelle Martínez APRN CNM Unavailable [phone] Reason for Visit * Reason Comments Pre-Op Exam * Consultation (Routine: Next available opening) - Pending Review Specialty Diagnoses / Procedures Referred By Contac t Referred To Contact Diagnoses History of lumbar discectomy Scoliosis, unspecified scoliosis type, unspecified spinal region Camila Sousa MD [address] [address] Phone: tel: fax: Referral ID Status Reason Start Date Expiration Date V isits Requested Visits Authorized [id number] Pending Review 05/23/2025 05/23/2026 1 1 Encounter Details Date Type Department Care Team (Latest Contact Info) Description 06/14/2025 11:15 AM CDT Virtual Visit [facility] Preoperative Assessment Center [address] 5th [place] [address] Charo Roberts PA-C [address] [place] [address] History of lumbar discectomy; Scoliosis, unspecified scoliosis type, unspecified spinal region Anesthesia Record Procedure Summary Procedure Name Responsible Anesthesiologist Anesthesia Start Time Anesthesia Stop Time PAC ANESTH CONSULT Events No events on file. Meds * Agents No agents on file. * Blood No blood administrations on file. Lines, Drains, and Airways No LDAs on file. documented in this encounter Social History Tobacco Use Types Packs/Day Years Used Date Smoking Tobacco: Former Cigarettes Passive Smoke Exposure: Past Smokeless Tobacco: Former Tobacco Cessation:Counseling Given: Not Answered Comments:[id number] Alcohol Use Standard Drinks/Week Comments Not Currently [...] Date Recorded Do you have housing? (Shashi g is defined as stable permanent housing [...] Sign Reading Time Taken Comments Blood Pressure - - Pulse - - Temperature - - Respiratory Rate - - Oxygen Saturation - - Inhaled Oxygen Concentration - - Weight 78.9 kg (174 lb) 06/14/2025 11:01 AM CDT Height 177 cm (5' 9.69) 06/14/2025 11:01 AM CDT Body Mass Index 25.19 06/14/2025 11:01 AM CDT documented in this encounter Progress Notes * Khloe Gracia LPN - 06/14/2025 11:15 AM CDT Macy is a 24 year old who is being evaluated via a billable video visit. How would you like to obtain your AVS? MyChart Subjective Macy is a 24 year old, presenting for the following health issues: Pre-Op Exam N Basil CORBIN documented in this encounter Consult Notes * Charo Roberts PA-C - 06/14/2025 11:15 AM CDT Images from the original note were not included. Anesthesia Consult Note Reason for consult: poultry boner consult (Z98.890) History of lumbar discectomy (M41.9) Scoliosis, unspecified scoliosis type, unspecified spinal region Date of Encounter: 06/14/2025 Referring Physician: Camila Sousa MD Primary Care Physician: No Ref-Primary, Physician HPI Macy Flor is a 24 year old woman who is currently who is due on 08/06/25. 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 The patient has an OB history significant for: marginal cord insertion/bilobed placenta with current . The patient reports that with delivery of her first child in 2019, three attempts were made to place an epidural, none were successful and she delivered without medication. Then, in 2022, she underwent an evaluation for back pain at [facility] (including an MRI) and was found to have a lumbar herniated disc and mild scoliosis. She underwent a L5 microdiscectomy in July 2023. No issues with anesthesia for that surgery. For this , she would like an epidural to be a last resort as she is very hesitant to have anything involving her spine. Per chart review, she continues to experience some back pain and is working with a chiropractor formanagement. Anesthesia record from 09/16/19 at [facility] available for review. OB Hx: /parity: History of complications of No previous complications or first History of obstetrical surgery No previous or uterine surgery History of bleeding/coagulopathy Denies History of anesthesia issues in patient or 1st degree relative No previous issues with anesthesia for the patient or a first degree relative History is obtained from the patient and electronic health record. Past Medical History Past Medical History: Diagnosis Date Anxiety Bladder infection, chronic Depression Herniation of left side of L4-L5 intervertebral disc Scoliosis Past Surgical History Past Surgical History: Procedure Laterality Date LUMBAR DISCECTOMY 07/2023 L5 WISDOM TOOTH EXTRACTION Prior to Admission Medications Current Outpatient Medications Medication Sig Dispense Refill LANsoprazole (PREVACID) [address] capsule Take 1 capsule (15 mg) by mouth daily. 30 capsule 0 Magnesium Oxide POWD Take by mouth. Vit-Fe Fumarate-FA ( MULTIVITAMIN PLUS IRON) 27-1 MG TABS Take by mouth daily. VITAMIN D PO Take 50 mcg by mouth. Menstrual history: Patient's last menstrual period was 10/30/2024. Allergies Allergies Allergen Reactions Sulfa Antibiotics Social History Social History Socioeconomic History Marital status: Spouse name: Not on file Number of children: Not on file Years of education: Not on file Highest education level: Not on file Occupational History Not on file Tobacco Use Smoking status: Former Types: Cigarettes Passive exposure: Past Smokeless tobacco: Former Tobacco comments: [id number] Vaping Use Vaping status: Former Substance and Sexual Activity Alcohol use: Not Currently Drug use: Never Sexual activity: Yes Partners: Male Other Topics Concern Not on file Social History Narrative Not on file Social Drivers of Health Financial Resource Strain: Low Risk (04/25/2025) Financial Resource Strain Within the past 12 months, have you or your family members you live with been unable to get utilities (heat, electricity) when it was really needed?: No Food Insecurity: Low Risk (04/25/2025) Food Insecurity Within the past 12 months, did you worry that your food would run out before you got money to buy more?: No Within the past 12 months, did the food you bought just not last and you didn???t have money to getmore?: No Transportation Needs: Low Risk (04/25/2025) Transportation Needs Within the past 12 months, has lack of transportation kept you from medical appointments, getting your medicines, non-medical meetings or appointments, work, or from getting things that you need?: No Physical Activity: Not on file Stress: Not on file Social Connections: Not on file Interpersonal Safety: Low Risk (04/25/2025) Interpersonal Safety Do you feel physically and emotionally safe where you currently live?: Yes Within the past 12 months, have you been hit, slapped, kicked or otherwise physically hurt by someone?: No Within the past 12 months, have you been humiliated or emotionally abused in other ways by your partner or ex-partner?: No Housing Stability: Low Risk (04/25/2025) Housing Stability Do you have housing? : Yes Are you worried about losing your housing?: No Family History Family History Problem Relation Age of Onset Ovarian cysts Mother Depression Mother Bipolar Disorder Mother Hyperlipidemia Father Polycystic ovary syndrome Sister Hypertension Brother Depression Brother Heart Murmur Brother Liver Disease Maternal Grandmother No Known Problems Maternal Grandfather Breast Cancer Paternal Grandmother Skin Cancer Paternal Grandfather The complete review of systems is negative other than noted in the HPI or here. Anesthesia Evaluation Pt has had prior anesthetic. Type: General. No history of anesthetic complications ROS/MED HX ENT/Pulmonary: - neg pulmonary ROS Neurologic: - neg neurologic ROS Cardiovascular: - neg cardiovascular ROS METS/Exercise Tolerance: >4 METS Hematologic: - neg hematologic ROS Musculoskeletal: Comment: S/p lumbar discectomy (L5) Scoliosis GI/Hepatic: (+) GERD, (-) liver disease Renal/Genitourinary: - neg Renal ROS Endo: - neg endo ROS Psychiatric/Substance Use: (+) psychiatric history anxiety Infectious Disease: - neg infectious disease ROS Malignancy: - neg malignancy ROS Other: Virtual visit - No vitals were obtained Physical Exam Constitutional: Pleasant, no apparent distress, and appears stated age. Eyes: Pupils equal HENT: Normocephalic and atraumatic Respiratory: Non labored breathing on room air Neurologic: Awake, alert, oriented to name, place and time. Neuropsychiatric: Calm, cooperative. Normal affect. Labs / testing: (personally reviewed) Outside records reviewed from: Care Everywhere Assessment Macy Flor is a 24 year old female seen as a PAC referral for risk assessment and optimization for anesthesia. Plan/Recommendations Pt will be optimized for the proposed procedure. See below for details on the assessment, risk, andpreoperative recommendations NEUROLOGY - No history of TIA, CVA or seizure -Post Op delirium risk factors: No risk identified ENT - No current airway concerns. Will need to be reassessed day of surgery. Mallampati: Unable to assess TM: Unable to assess CARDIAC - No history of CAD, Hypertension, and Afib - METS (Metabolic Equivalents) Patient performs 4 or more METS exercise without symptoms Total Score: 0 RCRI-Very low risk: Class 1 0.4% complication rate Total Score: 0 PULMONARY JHOANA Low Risk Total Score: 0 - Denies asthma or inhaler use - Tobacco History History Smoking Status Former Types: Cigarettes Smokeless Tobacco Former GI - GERD Controlled on medications: Proton Pump Inhibitor PONV Medium Risk Total Score: 2 1 AN PONV: Pt is Female 1 AN PONV: Patient is not a current smoker ENDOCRINE - BMI: Estimated body mass index is 25.19 kg/m?? as calculated from the following: Height as of this encounter: 1.77 m (5' 9.69). Weight as of this encounter: 78.9 kg (174 lb). Healthy Weight (BMI 18.5-24.9) - No history of Diabetes Mellitus HEME VTE Low Risk 0.26% Total Score: 0 - No history of abnormal bleeding or antiplatelet use. MSK -S/p lumbar microdiscectomy L5 in July 2023 -Scoliosis - Records from [facility] are not available for review in patient chart. Patient will work on obtaining these. PSYCH - Anxiety No current medications Staff Message sent to OB Anesthesia for estimated day of delivery: Jacob Worley DO. We briefly discussed various analgesic options today but the patient understands that the final plan will be determined by OB and anesthesia day of delivery. Video-Visit Details Type of service: Video Visit Provider received verbal consent for a Video Visit from the patient? Yes Video Start Time: 11:08 AM Video End Time: 11:23 AM Originating Location (pt. Location): Home Distant Location (provider location): Off-site Mode of Communication: Video Conference via AmWell On the day of service: 33 minutes were spent on the date of the encounter performing chart review, history and exam, patient education & counseling, documentation and/or discussion with other providers about the issuesdocumented above. Charo Roberts PA-C Preoperative Assessment Center [facility] Office phone: [phone] documented in this encounter Plan of Treatment Upcoming Encounters Date Type Department Care Team (Latest Contact Info) Description 06/20/2025 9:30 AM CDT Office Visit [facility] [address] Floor,[address] [facility] [address] [phone] Camila Sousa MD [address] [address] 06/28/2025 9:00 AM CDT Appointment [facility] Maternal Medicine [facility] [address] [place] [address] Roxanna Clinton MD [address] [place] [address] 06/28/2025 9:30 AM CDT Office Visit [facility] Maternal Medicine [facility] [address] [place] [address] Roxanna Clinton MD [address] [place], [place] [address] [address] 07/05/2025 9:45 AM CDT Office Visit [facility] [address] [facility] [address] [phone] Izzy Stern MD [address] [place] [address] 07/12/2025 10:00 AM CDT Office Visit [facility] [address] 3[address] [facility] [address] [phone] Camila Sousa MD [address] [place] [address] 07/19/2025 9:45 AM CDT Office Visit [facility] [address] [facility] [address] [phone] Camila Sousa MD [address] [place] [address] 07/26/2025 10:15 AM CDT Office Visit [facility] [address] [facility] [address] [address] Camila Sousa MD [address] [place], [place] [address] 07/31/2025 9:45 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 Office Visit [facility] [address] [facility] [address] [phone] Camila Sousa MD [address] [place] [address] documented as of this encounter Visit Diagnoses Diagnosis History of lumbar discectomy Personal history of surgery to other organs Scoliosis, unspecified scoliosis type, unspecified spinal region documented in this encounter Care Teams Invasive Cardiovascular Technologist Relationship Specialty Start Date End Date No Ref-Primary, Physician PCP - General 03/12/25 Isabelle Martínez APRN CNM [address] [place], [place] [address] Certified Nurse Coal Cutter automotive specialty technician 04/04/25 Camila Sousa MD [address] [place], [place] [address] automotive specialty technician 04/18/25 Isabelle Martínez APRN CNM [address] [place], [place] [phone] Assigned OBGYN Provider 05/19/25 documented as of this encounter
--- OUTSIDE RECORDS SUMMARY | 2025-06-14 23:59 | XMS_ITS | Encounter Summary ---
Author Organization [place] Address [address] [place] [address] Care Team Providers Care Inspector Eyeglass Name Role Phone No Ref-Primary, Physician Primary Care Provider Isabelle Martínez APRN CNM Unavailable [phone] Camila Sousa MD Unavailable [phone] Isabelle Martínez APRN CNM Unavailable [phone] Encounter Details Date Type Department Care Team (Late st Contact Info) Description 06/14/2025 11:59 PM CDT Anesthesia Event [facility] Preoperative Assessment [address] [address] Charo Roberts PA-C [address] [place] [id number] Anesthesia Record Procedure Summary Procedure Name Responsible [...] Passive Smoke Exposure: Past Smokeless Tobacco: Former Comments:[id number] Alcohol Use Standard Drinks/Week Comments Not Currently [...] AM CDT Office Visit [facility] [address] [facility] [address] [place] [address] Camila Sousa MD [address] [facility] [address] [place] [address] 06/28/2025 9:00 AM CDT Appointment [facility] Maternal Medicine [facility] [place] [address] [place] [phone] Roxanna Clinton MD [address] [place] [address] 06/28/2025 9:30 AM CDT Office Visit [facility] Maternal Medicine [facility] [address] [place] [address] Roxanna Clinton MD [address] [place] [address] 07/05/2025 9:45 AM CDT Office Visit [facility] [address] [facility] [address] [phone] Izzy Stern MD [address] [place] [phone] 07/12/2025 10:00 AM CDT Office Visit [facility] [address] [facility] [address] [phone] Camila Sousa MD [address] [place] [address] 07/19/2025 9:45 AM CDT Office Visit [facility] [address] [facility] [address] [phone] Camila Sousa MD [address] [place] [address] 07/26/2025 10:15 AM CDT Office Visit [facility] [address] [facility] [address] [place] [phone] Camila Sousa MD [address] [place], [place] [address] 07/31/2025 9:45 AM 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 TEACHER Office Visit [facility] [address] [facility] [address] [place] [phone] Camila Sousa MD [address] [place], [place] [id number] documented as of this encounter Visit Diagnoses Not on filedocumented in this encounter Care Teams Inspector Eyeglass Relationship Specialty Start Date End Date No Ref-Primary, Physician PCP - General 03/12/25 Isabelle Martínez APRN CNM [address] [place], [place] [phone] Certified Nurse Wardrobe Specialty Worker organ builder 04/04/25 Camila Sousa MD [address] [place], [place] [phone] organ builder 04/18/25 Isabelle Martínez APRN CNM [address] [place], [place] [address] Assigned OBGYN Provider 05/19/25 documented as of this encounter
[2025-06-16] VITALS (10 sets, daily range): BP systolic 125–132; BP diastolic 75–78; PULSE 81–99; RESP 16–18; TEMP 36.7–36.8; O2SAT 97–99
--- OUTSIDE RECORDS SUMMARY | 2025-06-16 12:04 | XMS_ITS | Clinical Summary ---
Author Organization [facility] Address [address] [place] [address] Care Team Providers Care Machine Rough Rounder Name Role Phone No Ref-Primary, Physician Primary Care Provider Isabelle Martínez APRN CNM Unavailable [phone] Camila Sousa MD Unavailable [phone] Isabelle Martínez APRN CNM Unavailable [phone] Allergies Active Allergy Reactions Criticality Noted Date Comments Sulfa Antibiotics 04/11/2025 Medications Vit-Fe Fumarate-FA ( MULTIVITAMIN PLUS IRON) 27-1 MG TABS Take by mouth daily. Active Magnesium Oxide POWD Take by mouth. Active VITAMIN D PO Take 50 mcg by mouth. Active LANsoprazole (PREVACID) [address] capsuleIndication s:Gastroesophagea l reflux disease without esophagitis Take 1 capsule (15 mg) by mouth daily. 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 [x]NOB folder [x]Dating [x] Had Normal NIPT [x] anatomy US ordered [x] No added risk for PRE-E [x]No need for utox in labor []COVID vaccine completed [x]Pap 08/2024 NIL []Planning CS-need MD visit/care 12-23wks []declines AFP/QS [x]Rubella immune [x]Hep B immune []Varicella immune []FLU shot 24-28wk []EOB folder []Labor plans: [] Ed []Accounts Adjustable Clerk: []Infant feeding plan [][place] care provider choice []PP Contraception plan: If tubal,consent date: []TDAP []Rhogam if needed, date: 29-35 wk []TOLAC consent done [] Water interest []GCT nml results []RSV 36-37 wks [] GBS/CBC []OTC PP meds sent []PP recovery plans/support: []Risk/plan for mood/anxiety disorder: []Planning CS-ERAS pkt 38-42 wks []IOL reason/plans []Postdates BPP Bilobed placenta with velamentaous cord insertio n 04/16/2025 Overview (04/16/2025): Bilobed placenta Velamentous cord insertion Placental cyst Velamentous cord insertion serial growth at 28 wks with 36 wkly BPPs H/O lumbar discectomy 04/16/2025 Overview (04/16/2025): 2022 L5 surgery also has another bulging disc consider anesthesia consult 3rd trim hoping for labor epidural scoliosis 04/16/2025 history of Anxiety and depression 04/16/2025 Overview (04/16/2025): Situational PP per pt no current meds or concerns during this Estimated Date of Delivery Comme nts Yes 08/06/2025 Based on last me nstrual period of 10/30/2024 Encounters Date Type Department Care Team Description 06/14/2025 11:59 PM CDT Anesthesia Event [facility] Preoperative Assessment Center [address] [place] [phone] Charo Roberts PA-C 06/14/2025 11:15 AM CDT Virtual Visit [facility] Preoperative Assessment [address] [place] [phone] Charo Roberts PA-C History of lumbar discectomy; Scoliosis, unspecified scoliosis type, unspecified spinal region 06/14/2025 PRE VISIT [facility] Preoperative Assessment [address] [place] [phone] Charo Roberts PA-C Previsit 06/12/2025 10:30 AM CDT Office Visit [facility] [place] [address] [place] [address] Hi Malloy MD Marginal insertion of umbilical cord affecting management of mother (Primary Dx) 06/12/2025 9:42 AM CDT - 06/12/2025 11:59 PM CDT Hospital Encounter [facility] Maternal Medicine [facility] [address] [place] [phone] Hi Malloy MD Marginal insertion of umbilical cord affecting management of mother Discharge Disposition: Home or Self Care 06/12/2025 Travel 06/07/2025 9:00 AM CDT Lab [facility] [address] [facility] [place] [address] Camila Sousa MD Abnormal glucose affecting 06/07/2025 8:30 AM CDT Office Visit [facility] [place] [address] [place] [address] 3rd Floor,[address] [facility] [address] [place] [address] Camila Sousa MD Supervision of other high risk pregnancies, third trimester (Primary Dx); Placental abnormality in third trimester; H/O lumbar discectomy 06/07/2025 Results Follow-Up [facility] [address] 3rd Floor,[address] [facility] [address] [address] Saroj Albrecht APRN [facility] Subj: Message about your results 06/07/2025 Travel 05/24/2025 Telephone [facility] [address] 3rd Floor,[address] [facility] [address] [phone] Bhavani Moore CMA 05/23/2025 10:45 AM CDT Lab [facility] [address] [facility] [place] [address] Camila Sousa MD Supervision of high risk in second trimester 05/23/2025 10:00 AM CDT Office Visit [facility] [address] 3rd Floor,[address] [facility] [address] [phone] Camila Sousa MD Supervision of other high risk pregnancies, third trimester (Primary Dx); Gastroesophageal reflux disease without esophagitis; History of lumbar discectomy; Scoliosis, unspecified scoliosis type, unspecified spinal region; Placental abnormality in third trimester 05/23/2025 Refill [facility] [address] [facility] [address] [phone] Camila Sousa MD Medication Refill 05/23/2025 Travel 05/18/2025 MyC Medical Advice [facility] [address]rd Floor,[address] [facility] [address] [phone] Camila Sousa MD 05/15/2025 8:30 AM CDT Office Visit [facility] [place] [address] [place] [address] Roxanna Clinton MD Marginal insertion of umbilical cord affecting management of mother (Primary Dx); related condition in third trimester 05/15/2025 7:51 AM CDT - 05/15/2025 11:59 PM CDT Hospital Encounter [facility] [place] [address] [place] [address] Roxanna [place] MD Placental abnormality, second trimester Discharge Disposition: Home or Self Care 05/15/2025 Travel 05/09/2025 Orders Only [facility] [address] 3rd Floor,[address] [facility] [address] [phone] Education, [facility] Obgyn Nurse 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 (Primary Dx); Supervision of high risk in second trimester; Placental abnormality in second trimester 04/30/2025 Medical Correspondence [facility] Information Management [address] [facility] [address] [place] [address] Scan, Non-Provider 04/25/2025 12:04 PM CDT - 04/25/2025 12:39 PM CDT Hospital Encounter [facility] [address] [place] [address] Daphne Parra MD Discharge Disposition: Home or Self Care 04/25/2025 Travel 04/25/2025 Telephone [facility] [address]rd Floor,[address] [facility] [address] [phone] Camila Sousa MD 04/24/2025 MyC Medical Advice [facility] [address] 3rd Floor,[address] [facility] [address] [phone] Camila Sousa MD 04/24/2025 Telephone [facility] [address]rd [address] [facility] [address] [phone] Camila Sousa MD 04/17/2025 Results Follow-Up [facility] [address]rd [address] [facility] [address] [phone] Jyothi Woods APRN CNM Dx: Abnormal glucose affecting (Primary Dx) 04/16/2025 10:40 AM CDT Office Visit [facility] [address] Floor,[address] [facility] [address] [phone] Isabelle Mratínez APRN CNM Supervision of high risk in second trimester (Primary Dx); 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; Supervision of other high risk pregnancies, second trimester; Placental abnormality in second trimester; H/O lumbar discectomy; Other idiopathic scoliosis, unspecified spinal region; Anxiety and depression 04/16/2025 9:40 AM CDT Ancillary Procedure [facility] 3rd Floor, [address] [place] [phone] Isabelle Martínez APRN CNM 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 04/16/2025 Travel 04/11/2025 1:00 PM CDT Virtual Visit [facility] [address]rd Floor,[address] [facility] [address] [phone] Isabelle Martínez APRN CNM Education, [facility] Obgyn Nurse Supervision of high risk in second trimester (Primary Dx) 04/11/2025 Telephone [facility] [address]rd Floor,[address] [facility] [address] [phone] Education, [facility] Obgyn Nurse 04/11/2025 Telephone [facility] [address] 3rd Floor,[address] [facility] [address] [phone] Education, [facility] Obgyn Nurse 04/11/2025 Telephone [facility] Epilepsy [facility] [address], [address] [place] [address] 1, [facility] Nurse 04/04/2025 Telephone [facility] [place] [address]rd Floor,[address] [facility] [address] [place] [phone] Isabelle Martínez APRN CNM Appointment 04/03/2025 Telephone [facility] Maternal Medicine [facility] [address] [place] [address] Camila Gonzales, bread wrapper operator 04/03/2025 Orders Only [facility] [address] [place] [address] Camila Gonzales, RN Placental abnormality, second trimester (Primary Dx) 03/29/2025 Transcribe Orders [facility] [address] [facility] [address] [place] [phone] Marisa Kaur APRN CNM related condition, antepartum (Primary Dx) 03/28/2025 Medical Correspondence [facility] Information Management [address] [facility] [address] [place] [address] Scan, Non-Provider 03/20/2025 10:45 AM CDT Office Visit [facility] [place] [address] [facility] [address] [place] [phone] Kwabena Velez MD Placental abnormality, second trimester (Primary Dx); Encounter for anatomic survey; anomaly suspected but not found 03/20/2025 10:04 AM CDT - 03/20/2025 11:59 PM CDT Hospital Encounter [facility] [address] [employer] [facility] [address] [place] [address] Kwabena Velez MD related condition, antepartum Discharge Disposition: Home or Self Care 03/20/2025 Travel from Last 3 Months Immunizations Immunization Administration Dates Next Due TDAP (Adacel,Boostrix) 05/23/2025 Family History Medical History Relation Comments Depression Brother Heart Murmur Brother Hypertension Brother Hyperlipidemia Father No Known Problems Maternal Grandfather Liver Disease Maternal Grandmother Bipolar Disorder Mother Depression Mother Ovarian cysts Mother Skin Cancer Paternal Grandfather Breast Cancer Paternal Grandmother Polycystic ovary syndrome Sister Relation Status Comments Brother Alive Father Alive Maternal Grandfather Alive Maternal Grandmother Mother Paternal Grandfather Paternal Grandmother Sister Alive Social History Tobacco Use Types Packs/Day Years Used Date Smoking Tobacco: Former Cigarettes Passive Smoke Exposure: Past Smokeless Tobacco: Former Tobacco Cessation:Counseling Given: Not Answered Comments:[id number] Alcohol Use Standard Drinks/Week Comments Not Currently [...] in an abandoned building, in an overnight longterm, or couch-surfing.) Yes 04/25/2025 Are you worried [...] on file Sexual Orientation Not on file Last Filed Vital Signs Vital Sign Reading Time Taken Comments Blood Pressure 112/71 06/07/2025 8:38 AM CDT Pulse 69 06/07/2025 8:38 AM CDT Temperature 36.8 C (98.2 F) 04/25/2025 12:09 PM CDT Respiratory Rate 18 04/25/2025 12:09 PM CDT Oxygen Saturation - - Inhaled Oxygen Concentration - - Weight 78.9 kg (174 lb) 06/14/2025 11:01 AM CDT Height 177 cm (5' 9.69) 06/14/2025 11:01 AM CDT Body Mass Index 25.19 06/14/2025 11:01 AM CDT Plan of Treatment Upcoming Encounters Date Type Department Care Team (Latest Contact Info) Description 06/20/2025 9:30 AM CDT Office Visit [facility] Women[facility] Clinic [address] 3rd Floor,[address] [facility] [address] [place] [phone] Camila Sousa MD [address] [place], [place] [address] [facility] [address] [place], [place] [phone] 06/28/2025 9:00 AM CDT Appointment [facility] [place] [address] [place] [phone] Roxanna [place] MD [address] [place] [address] 06/28/2025 9:30 AM CDT Office Visit [facility] [place] [address] [place] [address] Roxanna Clinton MD [address] [place] [address] 07/05/2025 9:45 AM CDT Office Visit [facility] [address] 3rd Floor,[address] [facility] [address] [phone] Izzy Stern MD [address] [place] [address] 07/12/2025 10:00 AM CDT Office Visit [facility] [address] 3rd Floor,[address] [facility] [address] [phone] Camila Sousa MD [address] [place] [address] 07/19/2025 9:45 AM CDT Office Visit [facility] [address]rd Floor,[address] [facility] [address] [phone] Camila Sousa MD [address] [place] [address] 07/26/2025 10:15 AM CDT Office Visit [facility] [address] 3rd Floor,[address] [facility] [address] [phone] Camila Sousa MD [address] [place] [address] 07/31/2025 9:45 AM CHAMBER MAGISTRATE Office Visit [facility] [address] 3rd Floor,[address] [facility] [address] [address] Camila Sousa MD [address] [place] [address] Health Maintenance Due Date Last Done Comments ADVANCE CARE PLANNING 1999 ANNUAL REVIEW OF HM ORDERS 1999 YEARLY PREVENTIVE VISIT 01/02/2022 01/03/20 21, 01/17/2016, 12/06/2014, Additional history exists PAP 01/03/2024 01/02/2021 MATERNAL SCREENING DISCUSSION 01/08/2025 COVID-19 VACCINE ( season) 2025 INFLUENZA VACCINE (#1) 2025 , 07/26/2018, 01/21/2018, Additional history exists RSV VACCINE (1 - Risk 1-dose series) 06/11/2025 DTAP/TDAP/TD VACCINE (9 - Td or Tdap) 05/23/2035 05/23/2025, 07/06/2019, 04/05/2012, Additional history exists ZOSTER VACCINE (1 of 2) 2049 PNEUMOCOCCAL VACCINE: PEDIATRICS (0 to 5 YEARS) AND AT-RISK PATIENTS (6 to 49 YEARS) Aged Out 09/29/2000 No longer eligible based on patient's age to complete this topic HPV VACCINE Completed 12/06/2014, 07/28, 04/05/2012 MENINGITIS VACCINE Completed 01/27/2017, 04/05/2012 HEPATITIS B VACCINE Completed 06/02/2017, 01/27/2017, 09/29/2000, Additional history exists HEPATITIS C SCREENING Completed 01/12/2025 HIV SCREENING Completed 01/12/2025, 02/26, 01/19/2019 TDAP VACCINE () Completed 05/23/2025 OBGCT (OB) Completed 06/07/2025, 05/23/2025 PHQ-2 (once per calendar year) Completed 06/14/2025, 04/11/2025 MENINGITIS B VACCINE Aged Out No long er eligible based on patient's age to complete this topic Procedures Procedure Name Priority Date/Time Associated Diagnosis Comments [facility] S[facility]/U Routine 06/12/2025 10:08 AM CDT Marginal insertion of umbilical cord affecting management of mother GESTATIONAL GLUCOSE TOLERANCE TESTING, 3 HOUR Routine [...] 06/07/2025 9:05 AM CDT Abnormal glucose affecting VITAMIN D DEFICIENCY SCREENING Routine 05/23/2025 11:00 [...] Supervision of high risk in second trimester VARICELLA ZOSTER VIRUS ANTIBODY IGG Routine 05/23/2025 11:00 AM CDT Supervision of high risk in second trimester MFM US COMPREHENSIVE SINGLE F/U Routine 05/15/2025 8:37 AM CDT Placental abnormality, second trimester URINE CULTURE Routine 04/16/2025 11:18 AM CDT Supervision of high risk in second trimester US OB FOLLOW UP >=14 WEEKS Routine 04/16/2025 10:15 AM CDT 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 [facility] US COMPREHENSIVE SINGLE Routine 03/20/2025 11:49 AM CDT related condition, antepartum HIV ANTIGEN ANTIBODY COMBO Routine 01/12/2025 11:25 AM CDT HEPATITIS C ANTIBODY Routine 01/12/2025 11:25 AM CDT from Last 3 Months or Most Recently Relevant to Health Maintenance Results * [facility] Comprehensive Single F/U (06/12/2025 10:08 AM CDT) Only the most recent of2 resultswithin the time period is included. Anatomical Region Laterality Modality Ultrasound 06/12/2025 9:43 [...] FLOR Study Date: 06/12/2025 9:43am Pat. NO: [id number] Referring MD: KAREN DICKERSON Site: Metal Trim Erector: Silvina Sultana RDMS : 2000 Age: 24 [...] 4 lb 5 oz EFW by Hadlock ([id number]) Head / Face / Neck Biometry: Air Breaker Operator 4.1 mm CM 5.1 mm ANATOMY ----- The following structures appear normal: Head / Neck Cranium. Head size. Head shape. Lateral ventricles. Midline falx. Cavum septi pellucidi. Cerebellum. Cisterna magna. Thalami. Face Lips. Profile. Nose. Heart / Thorax 4-chamber view. RVOT view. LVOT view. 7-ciqgso-lyvdulk view. Diaphragm. Abdomen Stomach. Kidneys. Bladder. Spine [...] FLOR Study Date: 06/12/2025 9:43am Pat. NO: [id number] Referring MD: KAREN DICKERSON Site: Metal Trim Erector: Silvina Sultana RDMS : 2000 Age: 24 [...] EFW (lb,oz) 4 lb 5oz EFW by Hadlock([id number]) Head / Face / Neck Biometry: Air Breaker Operator 4.1mm CM 5.1mm ANATOMY ----- The following structures appear normal: Head / Neck Cranium. Head size. Head shape.Lateral ventricles. Midline falx. Cavum septi pellucidi. Cerebellum.Cisterna magna. Thalami. Face Lips. Profile. Nose. Heart / Thorax 4-chamber view. RVOT view. LVOT view.1-idcjij-uqdrfkg view. Diaphragm. Abdomen Stomach. Kidneys. Bladder. Spine [...] insertion and bilobed placenta Roxanna [place] MD [facility] ORDERABLES Edited Result - Final * Gestational Glucose Tolerance Testing, 3 Hour [...] hour 155 mg/dL 3 hour 140 mg/dL Jyothi FLYNN LAB - BLOOD ORDERABL ES Final Result UR LABORATORY [facility] Acute Care Lab [address] [facility], [address] [place] [address], [facility] * (ABNORMAL) Gestational Glucose Tolerance Testing, 2 Hour (06/07/2025 11:04 AM CDT) Gestational GTT 2 Hr Post Dose 161(H) 60 - 154 mg/dL 06/07/2025 11:39 AM CDT UR LABORATORY Blood STRUCTURE OF LEFT UPPER LIMB / Unknown Venipuncture / Unknown 06/07/2025 11:04 AM CDT 06/07/2025 11:04 AM CDT us Jyohti Woods APRN, CNM LAB - BLOOD ORDERABL ES Final Result UR LABORATORY [facility] Acute Care Lab [address] [place] [address], [address] [place] [address], [facility] * Gestational Glucose Tolerance Testing, 1 Hour (06/07/2025 10:10 AM CDT) [facility] Gestational GTT 1 Hr Post Dose 175 60 - 179 mg/dL 06/07/2025 10:46 AM CDT UR LABORATORY Blood STRUCTURE OF LEFT UPPER LIMB / Unknown Venipuncture / Unknown 06/07/2025 10:10 AM CDT 06/07/2025 10:10 AM CDT us Jyothi Woods APRN, CNM LAB - BLOOD ORDERABL ES Final Result Performing Organization Address City/[facility] Co de Phone Number UR LABORATORY [facility] Acute Care Lab [address] [place] [address], [address] [phone] * Gestational Glucose Tolerance Testing, Fasting (06/07/2025 9:05 AM CDT) [facility] Gestational GTT Fasting 87 60 - 94 mg/dL 06/07/2025 9:36 AM CDT UR LABORATORY Blood STRUCTURE OF LEFT UPPER LIMB / Unknown Venipuncture / Unknown 06/07/2025 9:05 AM CDT 06/07/2025 9:06 AM CDT us Jyothi Woods APRN, CNM LAB - BLOOD ORDERABL ES Final Result UR LABORATORY [facility] Acute Care Lab [address], [address] [place] [address] * Varicella Zoster Virus Antibody IgG (05/23/2025 11:00 AM CDT) Varicella Zoster Virus Antibody IgG Interpretation Positive 05/23/2025 10:09 PM CDT SPECIALTY LABS Varicella Zoster Virus Antibody IgG Instrument Value 3.34 <1.00 S/CO 05/23/2025 10:09 PM CDT SPECIALTY CORE/PROT/END O Blood STRUCTURE OF LEFT UPPER LIMB / Unknown Venipuncture / Unknown 05/23/2025 11:00 AM CDT 05/23/2025 11:04 AM CDT Narrative [facility] SPECIALTY CORE/PROT/ENDO - 05/23/2025 10:09 PM CDT Suggests previous exposure or immunization and probable immunity. Isabelle Martínez APRN CN LAB - BLOOD ORDERABLES F inal Result UM SPECIALTY CORE/PROT/ENDO [facility] Specialty Core/Prot/Endo [address] [facility] [address], Room [address] SPECIALTY LABS Specialty Lab [address] [facility] [address] [facility], Room [address] [phone] * Treponema Abs w Reflex to RPR and Titer (05/23/2025 11:00 AM CDT) Treponema Antibody Total Nonreactive Nonreactive 05/23/2025 10:11 PM CDT SPECIALTY LABS Blood STRUCTURE OF LEFT UPPER LIMB / Unknown Venipuncture / Unknown 05/23/2025 11:00 AM CDT 05/23/2025 11:04 AM CDT Isabelle Martínez APRN CN LAB - BLOOD ORDERABLES F inal Result UM SPECIALTY CORE/PROT/ENDO UM Specialty Core/Prot/Endo [address] [facility] [address] Building, Room [address] SPECIALTY LABS [facility] Specialty Lab [address] [facility] [address] Building, [address] * 25- [place]-Vitamin D (05/23/2025 11:00 AM CDT) Vitamin D, Total (25-Hydroxy) 48 20 - 50 ng/mL 05/23/2025 6:54 PM CDT [facility] LAB[facility]ATORY Comment:optimum levels Blood STRUCTURE OF LEFT UPPER LIMB / Unknown Venipuncture / Unknown 05/23/2025 11:00 AM CDT 05/23/2025 11:04 AM CDT Narrative [facility] - 05/23/2025 6:54 PM CDT Season, race, dietary intake, and treatment affect the concentration of 54-kwtsmjr-Rmiqwhk D. Values may decrease during winter months and increase during summer months. Vitamin D determination is routinely performed by an immunoassay specific for 25 hydroxyvitamin D3. If an individual is on vitamin D2(ergocalciferol) supplementation, please specify 25 [place] vitamin D2 and D3 level determination by LCMSMS test VITD23. Isabelle Martínez APRN [facility] LAB - BLOOD ORDERABLES F inal Result Performing Organization Address City/State/[facility] Co de Phone Number [facility] LABORATORY [facility] [place] Core Lab [address] [facility], [address] [place] [address] * (ABNORMAL) Glucose tolerance gest screen 1 [...] 3 hour Glucose Tolerance should be performed. Isabelle Martínez APRN [facility] LAB - BLOOD ORDERABLES F inal Result UR LABORATORY [facility] Acute Care Lab [address], [address] [phone] * (ABNORMAL) CBC with platelets (05/23/2025 11:00 [...] 05/23/2025 11:04 AM CDT us Isabelle Martínez APRN CNM LAB - BLOOD ORDERABLES F inal Result UR LABORATORY [facility] Care Lab [address], [address] [phone] * Urine Culture (04/16/2025 11:18 AM CDT) Culture <10,000 CFU/mL Mixture of Urogenital Olya 04/17/2025 11:49 AM CDT [facility] Urine MID-STREAM URINE SPECIMEN / Unknown Non-blood Collection / Unknown 04/16/2025 11:18 AM CDT 04/16/2025 3:43 PM CDT us Isabelle Martínez STUDENT RECORDS COORDINATOR CNM LAB - MICRO GENERAL ORDKristin HALL Final Result [facility] Inf. Diseases Diag. Lab [address] [facility], [address] [place] [address] * US OB Follow Up >= 14 Weeks (04/16/2025 10:15 AM CDT) Anatomical Region Laterality Modality Abdomen/Pelvis Ultrasound Narrative 04/17/2025 10:41 AM CDT Table formatting from the original result was not included. Obstetrical Ultrasound Report OB U/S Follow Up > 14 Weeks - Transabdominal [facility] Referring physician: Camila Sousa MD Metal Trim Erector: Whitney Avery, Registered Packaging Coordinator, [facility] Indication: Velamentous insertion of umbilical cord Dating (mm/dd/yyyy): LMP: Patient's last menstrual period was 10/30/2024. EDC: Estimated Date of Delivery: Aug 06, 2025 GA by LMP: 24w0d Current Scan On (mm/dd/yyyy): 04/16/2025 EDC: 08/06/2025 GA by Current Scan: 24w0d The calculation of the gestational age by current scan was based on BPD, HC, AC and FL. Anatomy Scan: Spring gestation. Visualized: 4 Chamber Heart, Stomach, Kidneys, and Bladder. Biometry: BPD 5.9 cm 24w1d 49.1% HC 21.8 cm 23w6d 27.2% AC 19.2 cm 24w0d 39.1% FL 4.3 cm 24w1d 43.4% EFW (lbs/oz) 1 dsy1gch EFW (g) 654 g 42.9% Cardiac activity: 149 bpm presentation: Cephalic Amniotic fluid: 5.8cm MVP Placenta: Bilobed placenta - Main anterior with secondary posterior , no previa, > 2 cm from internal os Maternal Anatomy: Right adnexa: wnl Left adnexa: wnl Technique: Transabdominal Imaging performed Impression: Fetus with AGA growth pattern, normal MVP. Placenta with an accessory lobe. The cord insertion is not visualized on this study. Recommend follow up comprehensive ultrasound in 4 weeks to assess the cord insertion into the placenta. Continue surveillance as previously planned. Izzy Stern MD, FACOG us Camila Sousa MD IMG US ORDERABLES Final Resu lt * MFM US Comprehensive Single (03/20/2025 11:49 AM CDT) Anatomical Region Laterality Modality Ultrasound 03/20/2025 10:0 2 AM CDT Impressions 03/20/2025 1:23 PM CDT IMPRESSION ----- 1. Spring intrauterine at 20w 1d gestational age here for evaluation of anatomy. 2. No anomalies commonly detected by ultrasound or soft markers of aneuploidy were identified in the detailed anatomic survey within the limits of ultrasound. 3. Growth parameters and estimated weight were consistent with established dates. 4. The amniotic fluid volume appeared normal. 5. On transabdominal imaging the cervix appears long and closed. 6. A bilobed placenta is identified at the fundus of the uterus. The main portion of the placenta is anterior with the smaller lobe present posterior. There is a bridging membrane between the lobes that contains the main umbilical vessels. The placental cord insertion is marginal and inserts into the posterior smaller lobe. There is not a vasa previa since the placenta is fundal. Narrative 03/20/2025 1:23 PM CDT Comprehensive ----- Pat. Name: AURA FLOR Study Date: 03/20/2025 10:02am Pat. NO: [id number] Referring MD: MISSY SANDERS Site: Metal Trim Erector: Christian Carmichael RDMS : 2000 Age: 24 ----- INDICATION ----- Possible placental cyst, electronic health records specialist and velamentous cord insertion on outside scan METHOD ----- Transabdominal ultrasound examination. View: Sufficient ----- Spring . Number of fetuses: 1 DATING ----- Date Details Gest. age STUART LMP 10/30/2024 20 w + 1 d 08/06/2025 Previous U/S 12/20/2024 GA, GA 6 w + 6 d 19 w + 5 d 08/09/2025 U/S 03/20/2025 based upon AC, BPD, Femur, HC 20 w + 2 d 08/05/2025 Assigned dating based on the LMP, selected on 03/20/2025 20 w + 1 d 08/06/2025 GENERAL EVALUATION ----- Cardiac activity present. FHR 155 bpm. movements: present. Presentation: cephalic Placenta: Bi-lobed placenta. Main anterior placenta with smaller posterior lobe connected by thin isthmus on maternal right. Cord inserts into edge of posterior lobe and vessels travel along isthmus to the main anterior lobe. Umbilical cord: 3 vessel cord Amniotic fluid: Amount of AF: normal. MVP 4.9 cm Placental cyst measuring 12 x 6.7 x 12 mm BIOMETRY ----- BPD 48.1 mm 20w 4d Hadlock OFD 61.5 mm 19w 6d Nicolaides HC 174.9 mm 20w 0d Hadlock Cerebellum tr 19.4 mm 18w 5d Nicolaides Nuchal fold 4.0 mm AC 149.1 mm 20w 1d 45% Hadlock Femur 33.6 mm 20w 4d Hadlock Humerus 31.2 mm 20w 3d Luis Weight Calculation: EFW 346 g 54% Hadlock EFW (lb,oz) 0 lb 12 oz EFW by Hadlock ([id number]) Head / Face / Neck Biometry: Air Breaker Operator 6.8 mm CM 3.6 mm Nasal bone 5.9 mm ANATOMY ----- The following structures appear normal: Head / Neck Cranium. Head size. Head shape. Lateral ventricles. Choroid plexus. Midline falx. Cavum septi pellucidi. Cerebellum. Cisterna magna. Parenchyma. Thalami. Vermis. Neck. Nuchal fold. Face Lips. Profile. Nose. Maxilla. Mandible. Orbits. Lens. Heart / Thorax 4-chamber view. RVOT view. LVOT view. 3-vessel view. 9-apwmbc-kamdkyd view. Situs. Aortic arch view. Bicaval view. Ductal arch view. Superior vena cava. Inferior vena cava. Cardiac position. Cardiac size. Cardiac rhythm. Right lung. Left lung. Diaphragm. Abdomen Abdom. wall. Cord insertion. Stomach. Kidneys. Bladder. Liver. Bowel. Genitals. Spine Cervical spine. Thoracic spine. Lumbar spine. Sacral spine. Extremities / Skeleton Arms. Right arm. Right hand. Left arm. Left hand. Legs. Right leg. Right foot. Left leg. Left foot. sex: female. MATERNAL STRUCTURES ----- Cervix Visualized Appearance: Appears Closed Approach - Transabdominal: Cervical length 38.3 mm Right Ovary Visualized Left Ovary Visualized RECOMMENDATION ----- Thank-you for referring your patient for ultrasound assessment. I discussed the findings on today's ultrasound with the patient. I reviewed the limitations of ultrasound both in detecting aneuploidy and structural abnormalities. Ultrasound can routinely detect 80-90% of structural abnormalities. She had low risk cell free DNA for genetic screening this . Follow-up assessment of placental cord insertion and growth is recommended at 28 and 34 weeks. If there is progression to a velamentous cord insertion then monthly ultrasound assessment of growth is recommended in addition to weekly surveillance starting at 36 weeks. I presume these follow-ups will be done in your office, but can be scheduled here if preferred. OR These are scheduled here. In addition, we discussed the risk of retained placental tissue at the time of delivery secondary to the placental anatomy and marginal cord insertion. Use of ultrasound and no traction on the the cord during the third stage of labor are recommended. We discussed the natural history of choroid plexus cysts. We discussed the association with trisomy 18. These were not seen on today's ultrasound and with an otherwise normal anatomy survey and low risk NIPS, the risk of trisomy 18 is not increased. The patient is not interested in further testing. Return to primary provider for continued care. If you have questions regarding today's evaluation or if we can be of further service, please contact the [facility]. I spent a total of 15 minutes (excluding the ultrasound interpretation) on the date of this encounter including preparing to see the patient (reviewing medical records/tests), in direct memp-fw-oswu contact with the patient counseling and discussing the plan of care, documenting the visit in the electronic medical record, and communicating with other health career technical counselor and/or care coordination. Please see note for details. Procedure Note Kwabena Velez MD - 03/20/2025 Comprehensive ----- Pat. Name: AURA FLOR Study Date: 03/20/2025 10:02am Pat. NO: [id number] Referring MD: MISSY SANDERS Site: Metal Trim Erector: Christian Carmichael RDMS : 2000 Age: 24 ----- INDICATION ----- Possible placental cyst, electronic health records specialist and velamentous cord insertion on outsidescan METHOD ----- Transabdominal ultrasound examination. View: Sufficient ----- Spring . Number of fetuses: 1 DATING ----- DateDetailsGest. age STUART LMP w + 1 d 08/06/2025 Previous U/S 12/20/2024 GA, GA6 w + 6 d19 w + 5 d 08/09/2025 U/S 5based upon AC, BPD, Femur, HC20 w + 2 d 08/05/2025 Assigned dating based on the LMP, selected on w + 1 d 08/06/2025 GENERAL EVALUATION ----- Cardiac activity present. FHR 155 bpm. movements: present.Presentation: cephalic Placenta: Bi-lobed placenta. Main anterior placenta with smaller posteriorlobe connected by thin isthmus on maternal right. Cord inserts into edgeof posterior lobe and vessels travel along isthmus to the main anterior lobe. Umbilical cord: 3 vessel cord Amniotic fluid: Amount of AF: normal. MVP 4.9 cm Placental cyst measuring 12 x 6.7 x 12 mm BIOMETRY ----- BPD 48.1mm 20w 4dHadlock OFD 61.5mm 19w 6dNicolaides HC 174.9mm 20w 0dHadlock Cerebellum tr 19.4mm 18w 5dNicolaides Nuchal fold 4.0mm AC 149.1mm 20w 1d 45%Hadlock Femur 33.6mm 20w 4dHadlock Humerus 31.2mm 20w 3dJeanty Weight Calculation: EFW 346g 54%Hadlock EFW (lb,oz) 0 lb 12oz EFW by Hadlock([id number]) Head / Face / Neck Biometry: Air Breaker Operator 6.8mm CM 3.6mm Nasal bone 5.9mm ANATOMY ----- The following structures appear normal: Head / Neck Cranium. Head size. Head shape.Lateral ventricles. Choroid plexus. Midline falx. Cavum septi pellucidi.Cerebellum. Cisterna magna. Parenchyma. Thalami. Vermis. Neck. Nuchal fold. Face Lips. Profile. Nose. Maxilla.Mandible. Orbits. Lens. Heart / Thorax 4-chamber view. RVOT view. LVOT view.3-vessel view. 6-gajsap-bukzmbp view. Situs. Aortic arch view. Bicavalview. Ductal arch view. Superior vena cava. Inferior vena cava.Cardiac position. Cardiac size. Cardiac rhythm. Right lung. Left lung.Diaphragm. Abdomen Abdom. wall. Cord insertion. Stomach.Kidneys. Bladder. Liver. Bowel. Genitals. Spine Cervical spine. Thoracic spine.Lumbar spine. Sacral spine. Extremities / Skeleton Arms. Right arm. Right hand. Left arm.Left hand. Legs. Right leg. Right foot. Left leg. Left foot. sex: female. MATERNAL STRUCTURES ----- Cervix Visualized Appearance: Appears Closed Approach - Transabdominal:Cervical length 38.3 mm Right Ovary Visualized Left Ovary Visualized RECOMMENDATION ----- Thank-you for referring your patient for ultrasound assessment. I discussed the findings on today's ultrasound with the patient. Ireviewed the limitations of ultrasound both in detecting aneuploidy andstructural abnormalities. Ultrasound can routinely detect 80-90% of structural abnormalities. She had low riskcell free DNA for genetic screening this . Follow-up assessment of placental cord insertion and growth isrecommended at 28 and 34 weeks. If there is progression to a velamentouscord insertion then monthly ultrasound assessment of growth is recommended in addition to weeklyantenatal surveillance starting at 36 weeks. I presume these follow-upswill be done in your office, but can be scheduled here if preferred. OR These are scheduledhere. In addition, we discussed the risk of retained placental tissue at thetime of delivery secondary to the placental anatomy and marginal cordinsertion. Use of ultrasound and no traction on the the cord during the third stage of labor arerecommended. We discussed the natural history of choroid plexus cysts. We discussed theassociation with trisomy 18. These were not seen on today's ultrasound andwith an otherwise normal anatomy survey and low risk NIPS, the risk of trisomy 18 is notincreased. The patient is not interested in further testing. Return to primary provider for continued care. If you have questions regarding today's evaluation or if we can be offurther service, please contact the [facility]. I spent a total of 15 minutes (excluding the ultrasound interpretation) onthe date of this encounter including preparing to see the patient(reviewing medical records/tests), in direct byik-qe-xeml contact with the patient counseling and discussingthe plan of care, documenting the visit in the electronic medical record,and communicating with other health career technical counselor and/or care coordination. Please see note for details. IMPRESSION ----- 1. Spring intrauterine at 20w 1d gestational age here forevaluation of anatomy. 2. No anomalies commonly detected by ultrasound or soft markers ofaneuploidy were identified in the detailed anatomic survey withinthe limits of ultrasound. 3. Growth parameters and estimated weight were consistent withestablished dates. 4. The amniotic fluid volume appeared normal. 5. On transabdominal imaging the cervix appears long and closed. 6. A bilobed placenta is identified at the fundus of the uterus. The mainportion of the placenta is anterior with the smaller lobe presentposterior. There is a bridging membrane between the lobes that contains the main umbilical vessels. Theplacental cord insertion is marginal and inserts into the posteriorsmaller lobe. There is not a vasa previa since the placenta is fundal. Missy Vu MD [facility] US ORDERABLES Edited Res ult - Final * HIV Antigen Antibody Combo [place] (01/12/2025 11:25 AM CDT) Pathologist [facility] HIV 1&2 Antibody (External) Negative Negative NON-INTERFACE D (ONBASE SCANS) Blood BLOOD SPECIMEN / Unknown 01/12/2025 11:25 AM CDT Chadd MIDDLETON PFT - 04/13/2025 7:06 AM CDT Verified by Camila Villarreal on 04/13/2025. Provider Outside LAB - BLOOD ORDERABLES Edited R esult - Final ANAHIKristin PFT NON-INTERFACED (ONBASE SCANS) * Hepatitis C antibody (01/12/2025 11:25 AM CDT) Hepatitis C Antibody (External) Negative Negative NON-INTERFACE D (ONBASE SCANS) Blood BLOOD SPECIMEN / Unknown 01/12/2025 11:25 AM CDT Narrative KANE PFT - 04/13/2025 7:06 AM CDT Verified by Camila Villarreal on 04/13/2025. us Provider Outside LAB - BLOOD ORDERABLES Edited R esult - Final KANE VEGA NON-INTERFACED (ONBASE SCANS) from Last 3 Months or Most Recently Relevant to Health Maintenance Insurance [place] Care Teams Machine Rough Rounder Relationship Specialty Start Date End Date No Ref-Primary, Physician PCP - General 03/12/25 Isabelle Martínez APRN CNM [address] [place], [place] [id number] Certified Nurse Drywall Hanger Helper construction assistant 04/04/25 Camila Sousa MD [address] [place], [place] [phone] construction assistant 04/18/25 Isabelle Martínez APRN CNM [address] [place], [place] [id number] Assigned OBGYN Provider 05/19/25
--- OUTSIDE RECORDS SUMMARY | 2025-06-16 12:04 | XMS_ITS | Encounter Summary ---
Author Organization [place] Address [address] [place] [address] Care Team Providers Care Heat And Frost Insulator Name Role Phone No Ref-Primary, Physician Primary Care Provider Isabelle Martínez APRN, CNM Unavailable [phone] Camila Sousa MD Unavailable [phone] Encounter Details Date Type Department Care Team (Latest Contact Info) Description 05/15/2025 Travel Social History Tobacco Use Types Packs/Day Years Used Date Smoking Tobacco: Former Cigarettes Smokeless Tobacco: Former Comments:[id number] Alcohol Use Standard Drinks/Week Comments Not Currently [...] in an abandoned building, in an overnight chcf, or couch-surfing.) Yes 04/25/2025 Are you worried [...] Description 06/20/2025 9:30 AM CDT Office Visit [facility] [place] [address] [place], [place] [address] 3rd Floor,[address] [facility] [address] [place] [phone] Camila Sousa MD [address] [facility] [address] [facility] [address] [place], [place] [phone] 06/28/2025 9:00 AM CDT Appointment [facility] [place] [address] [place] [phone] Roxanna Clinton MD [address] [place], [place] [address] 06/28/2025 9:30 AM CDT Office Visit [facility] [place] [address] [place] [address] Roxanna Clinton MD [address] [place], [place] [address] [place] [address] 07/05/2025 9:45 AM CDT Office Visit [facility] [address] Floor,[address] [facility] [address] [phone] Izzy Stern MD [address] [place] [address] 07/12/2025 10:00 AM CDT Office Visit [facility] [address] [facility] [address] [phone] Camila Sousa MD [address] [place] [address] 07/19/2025 9:45 AM CDT Office Visit [facility] [address] [facility] [address] [phone] Camila Sousa MD [address] [place] [address] 07/26/2025 10:15 AM CDT Office Visit [facility] [address] [facility] [address] [phone] Camila Sousa MD [address] [place] [address] 07/31/2025 9:45 AM VETERINARY ATTENDANT Office Visit [facility] [address] [facility] [address] [phone] Camila Sousa MD [address] [place] [address] documented as of this encounter Visit Diagnoses Not on filedocumented in this encounter Care Teams Heat And Frost Insulator Relationship Specialty Start Date End Date No Ref-Primary, Physician PCP - General 03/12/25 Isabelle Martínez APRN CNM [address] [place] [address] Certified Nurse Systems Integration Advisor immunopathologist 04/04/25 Camila Sousa MD [address] [place] [address] immunopathologist 04/18/25 documented as of this encounter
--- OUTSIDE RECORDS SUMMARY | 2025-06-16 12:04 | XMS_ITS | Encounter Summary ---
Author Organization [place] Address [address] [place] [address] Care Team Providers Care Plumbing Engineer Name Role Phone No Ref-Primary, Physician Primary Care Provider Isabelle Martínez APRN CNM Unavailable [phone] Camila Sousa MD Unavailable [phone] Isabelle Martínez APRN CNM Unavailable [phone] Reason for Visit * Reason Onset Date Comments Previsit 06/14/2025 Encounter Details Date Type Department Care Team (Late st Contact Info) Description 06/14/2025 PRE VISIT [facility] Pre[facility] [address] [place] [address] Charo Roberts PA-C [address] [place] [address] Previsit Social History Tobacco Use Types Packs/Day Years Used Date Smoking Tobacco: Former Cigarettes Passive Smoke Exposure: Past Smokeless Tobacco: Former Comments:[id number] Alcohol Use Standard Drinks/Week Comments Not Currently [...] on file documented as of this encounter Miscellaneous Notes * Telephone Encounter - Roxanna Sams - 06/07/2025 1:42 PM CDT FUTURE VISIT INFORMATION SURGERY INFORMATION: PAC EVAL: Delivery planning Estimated delivery date 08/06/[address] 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; H/O lumbar discectomy; No current recs to collect documented in this encounter Plan of Treatment Upcoming Encounters Date Type Department Care Team (Latest Contact Info) Description 06/20/2025 9:30 AM CDT Office Visit [facility] [address] [facility] [address] [phone] Camila Sousa MD [address] [place], [place] [address] 06/28/2025 9:00 AM CDT Appointment [facility] Maternal Medicine [facility] [address] [place] [phone] Roxanna Clinton MD [address] [place], [place] [address] 06/28/2025 9:30 AM CDT Office Visit [facility] Maternal Medicine [facility] [address] [place], [place] [phone] Roxanna Clinton MD [address] [place], [place] [address] 07/05/2025 9:45 AM CDT Office Visit [facility] [address] [facility] [address] [phone] Izzy Stern MD [address] [place], [place] [address] 07/12/2025 10:00 AM CDT Office Visit [facility] [address] [facility] [address] [phone] Camila Sousa MD [address] [place], [place] [address] 07/19/2025 9:45 AM CDT Office Visit [facility] [address] [facility] [address] [place] [phone] Camila Sousa MD [address] [place], [place] [address] 07/26/2025 10:15 AM CDT Office Visit [facility] [address] [facility] [address] [phone] Camila Sousa MD [address] [place], [place] [address] 07/31/2025 9:45 AM MANAGER TERMINAL Office Visit [facility] [address] [facility] [address] [phone] Camila Sousa MD [address] [place], [place] [phone] documented as of this encounter Visit Diagnoses Not on filedocumented in this encounter Care Teams Plumbing Engineer Relationship Specialty Start Date End Date No Ref-Primary, Physician PCP - General 03/12/25 Isabelle Martínez APRN CNM [address] [place], [place] [address] Certified Nurse Boiler Tester smash piecer 04/04/25 Camila Sousa MD [address] [place] [address] smash piecer 04/18/25 Isabelle Martínez APRN CNM [address] [place] [address] Assigned OBGYN Provider 05/19/25 documented as of this encounter
--- OUTSIDE RECORDS SUMMARY | 2025-06-16 12:04 | XMS_ITS ---
Author Organization [facility] Source Produ ction (ClinicalSummary Clone) Address Unknown Care Team Providers Care Residential Designer Name Role Phone Unavailable Primary Care Physician Unavailab le Results * [UNITY] CARRIER SCREEN Performed by: Avtozaper Component Value Range Date Sickle Cell Disease/Beta-Thalassemia/Hemo globinopathies carrier screen NEGATIVE 01/26/2025 09:53 pm UTC Alpha-Thalassemia carrier screen NEGATIVE 01/26/2025 09:53 pm UTC Cystic Fibrosis carrier screen NEGATIVE 01/26/2025 09:53 pm UTC Spinal Muscular Atrophy carrier screen NEGATIVE 2 SMN1 copies, SNP not present 01/26/2025 09:53 pm UTC For detailed report, see PDF See PDF 01/26/2025 09:53 pm UTC 01/26/2025 09:5 3 pm UT Social History Observation Value Start Date End Date
--- OUTSIDE RECORDS SUMMARY | 2025-06-16 12:04 | XMS_ITS | Encounter Summary ---
Author Organization [place] Address [address] [place] [address]. [place] [address] Care Team Providers Care Digital Photographic Printer Name Role Phone No Ref-Primary, Physician Primary Care Provider Isabelle Martínez APRN CNM Unavailable [phone] Camila Sousa MD Unavailable [phone] Isabelle Martínez APRN CNM Unavailable [phone] Encounter Details Date Type Department Care Team (Latest Contact Info) Description 06/12/2025 Travel Social History Tobacco Use Types Packs/Day Years Used Date Smoking Tobacco: Former Cigarettes Smokeless Tobacco: Former Comments:2786-5746 Alcohol Use Standard Drinks/Week Comments Not Currently [...] Answer Date Recorded Do you have housing? (Taniain g is defined as stable permanent housing and does not include staying outside in a car, in a tent, in an abandoned building, in an overnight nursing home, or couch-surfing.) Yes 04/25/2025 Are you worried [...] CDT Office Visit [facility] [address]rd Floor,[address] [place] [facility] 88 [place] [phone] Camila Sousa MD [address] [facility] 300 [place], [place] [address] 06/28/2025 9:00 AM CDT Appointment [facility] [address] [place] [address] Roxanna Clinton MD [address] [place] [address] 06/28/2025 9:30 AM CDT Office Visit [facility] [address] [place] [address] Roxanna Clinton MD [address] [place] [address] 07/05/2025 9:45 AM CDT Office Visit [facility] [address] 3rd Floor,[address] [place] [facility] [address] [phone] Izzy Stern MD [address] [address] [place] [address] 07/12/2025 10:00 AM CDT Office Visit [facility] [address] 3rd Floor,[address] [place] [facility] [address] [phone] Camila Sousa MD [address] [place] [address] [place] [address] 07/19/2025 9:45 AM CDT Office Visit [facility] [address] 3rd Floor,[address] [place] [facility] [address] [phone] Camila Sousa MD [address] [place] [address] [place] [address] 07/26/2025 10:15 AM CDT Office Visit [facility] [address] 3rd Floor,[address] [place] [facility] [address] [phone] Camila Sousa MD [address] [place] [address] [place] [address] 07/31/2025 9:45 AM AVIATION MAINTENANCE TECHNICIAN Office Visit [facility] [address] 3rd Floor,[address] [place] [facility] [address] [phone] Camila Sousa MD [address] [place], [place] [address] documented as of this encounter Visit Diagnoses Not on filedocumented in this encounter Care Teams Digital Photographic Printer Relationship Specialty Start Date End Date No Ref-Primary, Physician PCP - General 03/12/25 Isabelle Martínez APRN CNTessy [address] [place] [address] Certified Nurse Brickmason Apprentice station detective 04/04/25 Camila Sousa MD [address] [place], [place] [address] station detective 04/18/25 Isabelle Martínez APRN CNM [address] [place] [address] Assigned OBGYN Provider 05/19/25 documented as of this encounter
--- OUTSIDE RECORDS SUMMARY | 2025-06-16 12:04 | XMS_ITS | Encounter Summary ---
Author Organization [place] Address [address] [place] [address]. [place] [address] Care Team Providers Care School Nurse Name Role Phone No Ref-Primary, Physician Primary Care Provider Iasbelle Martínez APRN CNM Unavailable [phone] Camila Sousa MD Unavailable Isabelle Martínez APRN CNM Unavailable [phone] Encounter Details Date Type Department Care Team (Latest Contact Info) Description 05/23/2025 Travel Social History Tobacco Use Types Packs/Day Years Used Date Smoking Tobacco: Former Cigarettes Smokeless Tobacco: Former Comments:5422-9464 Alcohol Use Standard Drinks/Week Comments Not Currently [...] in an abandoned building, in an overnight residential, or couch-surfing.) Yes 04/25/2025 Are you worried [...] Description 06/20/2025 9:30 AM CDT Office Visit [facility] [place] [address]rd Floor,[address] [place] [facility] 88 [place] [phone] Camila Sousa MD [address] [facility] 300 [place], [place] [address] 06/28/2025 9:00 AM CDT Appointment [facility] [place] [address] [place] [phone] Roxanna Clinton MD [address] [place] [address] 06/28/2025 9:30 AM CDT Office Visit [facility] [place] [address] [place] [address] Roxanna Clinton MD [address] [address] 07/05/2025 9:45 AM CDT Office Visit [facility] [address] 3rd Floor,[address] [place] [facility] [address] [phone] Izzy Stern MD [address] [address] [place] [address] 07/12/2025 10:00 AM CDT Office Visit [facility] [address] 3rd Floor,[address] [place] [facility] [address] [phone] Camila Sousa MD [address] [place] [address] [place] [address] 07/19/2025 9:45 AM CDT Office Visit [facility] [address] 3rd Floor,[address] [place] [facility] [address] [phone] Camila Sousa MD [address] [place] [address] [place] [address] 07/26/2025 10:15 AM CDT Office Visit [facility] [address] 3rd Floor,[address] [place] [facility] [address] [phone] Camila Sousa MD [address] [place] [address] [place] [address]64[address] 07/31/2025 9:45 AM OLDER ADULT SOCIAL WORK SPECIALIST Office Visit [facility] [address] 3rd Floor,[address] [place] [facility] [address] [phone] Camila Sousa MD [address] [address] [place], [place] [address] documented as of this encounter Visit Diagnoses Not on filedocumented in this encounter Care Teams School Nurse Relationship Specialty Start Date End Date No Ref-Primary, Physician PCP - General 03/12/25 Isabelle Martínez APRN CNTessy [address] [place] [address] Certified Nurse Lead Technical Architect acute care clinical nurse specialist 04/04/25 Camila Sousa MD [address] [place] [address] [place], [place] [address] acute care clinical nurse specialist 04/18/25 Isabelle Martínez APRN CNM [address] [place] [address] Assigned OBGYN Provider 05/19/25 documented as of this encounter
--- OUTSIDE RECORDS SUMMARY | 2025-06-16 12:04 | XMS_ITS | Encounter Summary ---
Author Organization [place] Address [address] [place] [address]. [place] [address] Care Team Providers Care Measurement And Verification Engineer Name Role Phone No Ref-Primary, Physician Primary Care Provider Isabelle Martínez APRN CNM Unavailable [phone] Camila Sousa MD Unavailable [phone] Isabelle Martínez APRN CNM Unavailable [phone] Encounter Details Date Type Department Care Team (Latest Contact Info) Description 06/07/2025 Travel Social History Tobacco Use Types Packs/Day Years Used Date Smoking Tobacco: Former Cigarettes Smokeless Tobacco: Former Comments:9730-5026 Alcohol Use Standard Drinks/Week Comments Not Currently [...] in an abandoned building, in an overnight intermediate, or couch-surfing.) Yes 04/25/2025 Are you worried [...] Description 06/20/2025 9:30 AM CDT Office Visit [facility] [place] [address]rd Floor,[address] [place] [facility] 88 [place] [phone] Camila Sousa MD [address] [facility] 300 [place], [place] [address] 06/28/2025 9:00 AM CDT Appointment [facility] [place] [address] [place] [phone] Roxanna Clinton MD [address] [place] [address] 06/28/2025 9:30 AM CDT Office Visit [facility] [place] [address] [place] [address] Roxanna Clinton MD [address] [address] 07/05/2025 9:45 AM CDT Office Visit [facility] [address] 3rd Floor,[address] [place] [facility] [address] [phone] Izzy Stern MD [address] [place] [address] 07/12/2025 10:00 AM CDT Office Visit [facility] [address] 3rd Floor,[address] [place] [facility] [address] [phone] Camila Sousa MD [address] [address] [place] [address] 07/19/2025 9:45 AM CDT Office Visit [facility] [address] 3rd Floor,[address] [place] [facility] [address] [phone] Camila Sousa MD [address] [place] [address] [place] [address] 07/26/2025 10:15 AM CDT Office Visit [facility] [address] 3rd Floor,[address] [place] [facility] [address] [phone] Camila Sousa MD [address] [place] [address] [place] [address] 07/31/2025 9:45 AM NEEDLE BAR MOLDER Office Visit [facility] [address] 3rd Floor,[address] [place] [facility] [address] [phone] Camila Sousa MD [address] [place] [address] [place], [place] [address] documented as of this encounter Visit Diagnoses Not on filedocumented in this encounter Care Teams Measurement And Verification Engineer Relationship Specialty Start Date End Date No Ref-Primary, Physician PCP - General 03/12/25 Isabelle Martínez APRN CNTessy [address] [place] [address] Certified Nurse It Systems Analyst Consultant attraction attendant 04/04/25 Camila Sousa MD [address] [address] [place], [place] [address] attraction attendant 04/18/25 Isabelle Martínez APRN CNM [address] [place] [address] [place] [address] Assigned OBGYN Provider 05/19/25 documented as of this encounter
--- OUTSIDE RECORDS SUMMARY | 2025-06-16 12:04 | XMS_ITS | Encounter Summary ---
Author Organization [place] Address [address] [place] [address]. [place] [address] Care Team Providers Care Rampman Name Role Phone No Ref-Primary, Physician Primary Care Provider Isabelle Martínez APRN, CNM Unavailable [phone] Camila Sousa MD Unavailable Encounter Details Date Type Department Care Team (Late st Contact Info) Description 04/30/2025 Medical Correspondence [facility] Information Management [address] [facility] [address] [place] [address] Scan, Non-Provider Social History Tobacco Use Types Packs/Day Years Used Date Smoking Tobacco: Former Cigarettes Smokeless Tobacco: Former Comments:2964-0848 Alcohol Use Standard Drinks/Week Comments Not Currently [...] in an abandoned building, in an overnight mcc, or couch-surfing.) Yes 04/25/2025 Are you worried [...] Description 06/20/2025 9:30 AM CDT Office Visit [facility] [place] [address] [place], [place] [address] 3rd Floor,[address] [place] [facility] 88 [place] [address] Camila Sousa MD [address] [facility] 300 [place], [place] [address] 06/28/2025 9:00 AM CDT Appointment [facility] [place] [address] [place] [phone] Roxanna Clinton MD [address] [place], [place] [address] 06/28/2025 9:30 AM CDT Office Visit [facility] [address] [place] [address] Roxanna Clinton MD [address] [place] [address] 07/05/2025 9:45 AM CDT Office Visit [facility] [address] 3rd Floor,[address] [place] [facility] [address] [address] Izzy Stern MD [address] [place] [address] 07/12/2025 10:00 AM CDT Office Visit [facility] [address] 3rd Floor,[address] [place] [facility] [address] [address] Camila Sousa MD [address] [place] [address] 07/19/2025 9:45 AM CDT Office Visit [facility] [address] 3rd Floor,[address] [place] [facility] [address] [address] Camila Sousa MD [address] [address] [place] [address] 07/26/2025 10:15 AM CDT Office Visit [facility] [address] 3rd Floor,[address] [place] [facility] [address] [phone] Camila Sousa MD [address] [place] [address] [place] [address] 07/31/2025 9:45 AM PROBATION AND PAROLE OFFICER Office Visit [facility] [address] 3rd Floor,[address] [place] [facility] 88 [place] [address] Camila Sousa MD [address] [address] [place] [address] documented as of this encounter Visit Diagnoses Not on filedocumented in this encounter Care Teams Rampman Relationship Specialty Start Date End Date No Ref-Primary, Physician PCP - General 03/12/25 Isabelle Martínez APRN CN [address] [place] [address] Certified Nurse Railroad Repairer technology lead 04/04/25 Camila Sousa MD [address] [place] [address] [place], [place] [id number] technology lead 04/18/25 documented as of this encounter
--- OUTSIDE RECORDS SUMMARY | 2025-06-16 12:04 | XMS_ITS | Encounter Summary ---
Author Organization [place] Address [address] [facility] [place] [address] Care Team Providers Care Theatrical Trouper Name Role Phone No Ref-Primary, Physician Primary Care Provider Isabelle Martínez APRN CNM Unavailable [phone] Camila Sousa MD Unavailable [phone] Isabelle Martínez APRN CNM Unavailable [phone] Reason for Visit * Reason Onset Date Comments Appointment 04/04/2025 Encounter Details Date Type Department Care Team (Late st Contact Info) Description 04/04/2025 [facility] [address] 3rd Floor,[address] [place] [facility] [address] [place] [address] Isabelle Martínez APRN CNM [address] [place] [address] [place], [place] [phone] Appointment Social History Tobacco Use Types Packs/Day Years Used Date Smoking Tobacco: Never Assessed Estimated Date of Delivery Comme nts Yes 08/06/2025 Based on last me nstrual period of 10/30/2024 Sex and Gender Information Value Date Recorded Sex Assigned at Not on file Legal Sex Female 7:10 AM CDT Gender Identity Not on file Sexual Orientation Not on file documented as of this encounter Miscellaneous Notes * Telephone Encounter - Lucinda Holm - 04/04/2025 3:18 PM CDT [facility] Phone Message May a detailed message be left on voicemail: yes Reason for Call: Other: Pt is 21w transferring care from [facility] in [facility]. No prior c sections, service writer advisor scheduled pt initial visits. Please advise Action Taken: Message routed to: Other: [facility] Travel Screening: Not Applicable documented in this encounter Plan of Treatment Upcoming Encounters Date Type Department Care Team (Latest Contact Info) Description 06/20/2025 9:30 AM CDT Office Visit [facility] [address] 3rd Floor,[address] [place] [facility] [address] [phone] Camila Sousa MD [address] [place], [place] [address] [address] [address] 06/28/2025 9:00 AM CDT Appointment [facility] [address] [place] [phone] Roxanna Clinton MD [address] [place] [address] 06/28/2025 9:30 AM CDT Office Visit [facility] [address] [place] [address] Roxanna Clinton MD [address] [place] [address] 07/05/2025 9:45 AM CDT Office Visit [facility] [address] 3rd Floor,[address] [place] [facility] [address] [phone] Izzy Stern MD [address] [address] 07/12/2025 10:00 AM CDT Office Visit [facility] [address] 3rd Floor,[address] [place] [facility] [address] [address] Camila Sousa MD [address] [address] [place] [address] 07/19/2025 9:45 AM CDT Office Visit [facility] [address] 3rd Floor,[address] [place] [facility] [address] [place] [address] Camila Sousa MD [address] [address] [place], [place] [phone] 07/26/2025 10:15 AM CDT Office Visit [facility] [address] 3rd Floor,[address] [place] [facility] [address] [address] Camila Sousa MD [address] [address] [place], [place] [address] 07/31/2025 9:45 AM SCHOOL PSYCHOLOGY PROFESSOR Office Visit [facility] [address] 3rd Floor,[address] [place] [facility] [address] [address] Camila Sousa MD [address] [address] [place], [place] [address] documented as of this encounter Visit Diagnoses Not on filedocumented in this encounter Care Teams Theatrical Trouper Relationship Specialty Start Date End Date No Ref-Primary, Physician PCP - General 03/12/25 Isabelle Martínez APRN CNM [address] [place], [place] [address] Certified Nurse Metalizer Field Operation ball maker 04/04/25 Camila Sousa MD [address] [place] [address] ball maker 04/18/25 Isabelle Martínez APRN CNM [address] [place] [address] Assigned OBGYN Provider 05/19/25 documented as of this encounter
--- OUTSIDE RECORDS SUMMARY | 2025-06-16 12:04 | XMS_ITS | Encounter Summary ---
Author Organization [place] Address [address] [facility] [place] [address] Care Team Providers Care Copyright Clerk Name Role Phone No Ref-Primary, Physician Primary Care Provider Isabelle Martínez APRN CNTessy Unavailable [phone] Camila Sousa MD Unavailable [phone] Isabelle Martínez APRN CNTessy Unavailable [phone] Encounter Details Date Type Department Care Team (Latest Contact Info) Description 04/17/2025 Results Follow-Up [facility] [address] [facility] 3rd Floor,[address] [place] [facility] [place] [address] Jyothi Woods APRN CNM [address] [address] Dx: Abnormal glucose affecting (Primary Dx) Social History Tobacco Use Types Packs/Day Years Used Date Smoking Tobacco: Former Cigarettes Smokeless Tobacco: Former Comments:5299-8942 Alcohol Use Standard Drinks/Week Comments Not Currently [...] encounter Miscellaneous Notes * Telephone Encounter - Serenity Munson RN - 06/05/2025 12:07 PM CDT Responded to patient via [email or web address]. * Result Encounter Note - Cara Jane RN - 04/17/2025 12:49 PM CDT RN called patient to review 1 hr GTT, patient verbalized understanding and had no questions/concerns at end of call. documented in this encounter Plan of Treatment Upcoming Encounters Date Type Department Care Team (Latest Contact Info) Description 06/20/2025 9:30 AM CDT Office Visit [facility] [address] 3rd Floor,[address] [place] [facility] 88 [place] [address] Camila Sousa MD [address] [place], [place] [address] 06/28/2025 9:00 AM CDT Appointment [facility] [address] [place] [phone] Roxanna Clinton MD [address] [place], [place] [address] 06/28/2025 9:30 AM CDT Office Visit [facility] [address] [address] Roxanna Clinton MD [address] [place], [place] [address] 07/05/2025 9:45 AM CDT Office Visit [facility] [address] 3rd Floor,[address] [place] [facility] [address] [phone] Izzy Stern MD [address] [place], [place] [address] 07/12/2025 10:00 AM CDT Office Visit [facility] [address] 3rd Floor,[address] [place] [facility] [address] [phone] Camila Sousa MD [address] [place], [place] [address] 07/19/2025 9:45 AM CDT Office Visit [facility] [address] 3rd Floor,[address] [place] [facility] 88 [place] [address] Camila Sousa MD [address] [place], [place] [address] 07/26/2025 10:15 AM CDT Office Visit [facility] [address] 3rd Floor,[address] [place] [facility] [address] [place] [address] Camila Sousa MD [address] [place], [place] [address] 07/31/2025 9:45 AM MACHINE SET UP Office Visit [facility] [address] 3rd Floor,[address] [place] [facility] [address] [place] [address] Camila Sousa MD [address] [place], [place] [address] documented as of this encounter Visit Diagnoses Diagnosis Abnormal glucose affecting - Primary documented in this encounter Care Teams Copyright Clerk Relationship Specialty Start Date End Date No Ref-Primary, Physician PCP - General 03/12/25 Isabelle Martínez APRN CNM [address] [place], [place] [address] Certified Nurse Video Technician prehemmer 04/04/25 Camila Sousa MD [address] [address] [place] [address] prehemmer 04/18/25 Isabelle Martínez APRN CNM [address] [facility] 300 [place] [address] Assigned OBGYN Provider 05/19/25 documented as of this encounter
--- OUTSIDE RECORDS SUMMARY | 2025-06-16 12:04 | XMS_ITS | Encounter Summary ---
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 Supervision of high risk in second trimester Placental abnormality in second trimester Erika Lyn MD [address] [place] [address] Phone: tel: fax: [facility] [place] [address] [facility] [address] [place] [address] Phone: tel: fax: Referral ID Status Reason Start Date Expiration Date V isits Requested Visits Authorized [id number] Pending Review 05/09/2025 05/09/2026 1 1 Question Answer Preferred Location: [facility] [place] Working Due Date: 08/06/2025 US Ordering Instructions: If US ONLY is requested, select appropriate US Order and DO NOT order M Consult. Reason for Referral: Ultrasound Ultrasound - Includes Interpretation/Recommendations (*indicates inclusion of genetic counseling): BPP & Growth - Growth at 28 and 34 wks Indication (* indicates inclusion of genetic counseling): Other (enter details in Comments) - marginal cord and bilobed placenta Fax number results need to be sent to: [phone] Additional Information: per Ning Clayton RN's request Comments There is no height or weight on file to calculate BMI. >> Patient may proceed with recommendations for further testing as directed by the Maternal Medicine Specialist >> >> If requesting Echo: MFM will determine appropriate location for exam due to indication. Please be aware that coverage of these services is subject to the terms and limitations of your health insurance plan. Call member services at your health plan with any benefit or coverage questions. 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 Will put in order. documented in this encounter Plan of Treatment Upcoming Encounters Date Type Department Care Team (Latest Contact Info) Description 06/20/2025 9:30 AM CDT Office Visit [facility] [place] [address] [facility] [address] [place] [phone] Camila Sousa MD [address] [place] [address] 06/28/2025 9:00 AM CDT Appointment [facility] [place] [address] [place] [address] Roxanna Clinton MD [address] [place] [address] 06/28/2025 9:30 AM CDT Office Visit [facility] [address] [place] [address] Roxanna Clinton MD [address] [place] [address] 07/05/2025 9:45 AM CDT Office Visit [facility] [address] [facility] [address] [address] Izzy Stern MD [address] [place] [address] 07/12/2025 10:00 AM CDT Office Visit [facility] [address] [facility] [address] [address] Camila Sousa MD [address] [place] [address] 07/19/2025 9:45 AM CDT Office Visit [facility] [address] [facility] [address] [address] Camila Sousa MD [address] [place] [address] 07/26/2025 10:15 AM CDT Office Visit [facility] [address] [facility] [address] [place] [address] Camila Sousa MD [address] [place], [place] [address] 07/31/2025 9:45 AM CAR RECORD CLERK Office Visit [facility] [address] [facility] [address] [place] [phone] Camila Sousa MD [address] [place], [place] [address] Scheduled Referrals Name Type Priority Associated Diagnoses Orde r Schedule Mat Med Ctr Referral - Referral Routine: Next available opening 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 Supervision of high risk in second trimester Placental abnormality in second trimester Expected: 05/09/2025 (Approximate), Expires: 11/05/2025 documented as of this encounter Visit Diagnoses Diagnosis 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- Primary Other umbilical cord complications during labor and delivery, unspecified as to episode of care Supervision of high risk in second trimester Unspecified high-risk Placental abnormality in second trimester documented in this encounter Care Teams Senior Manager Mergers & Acquisitions Relationship Specialty Start Date End Date No Ref-Primary, Physician PCP - General 03/12/25 Isabelle Martínez APRN CNM [address] [place], [place] [address] Certified Nurse Consumer Insights Intern public relations assistant 04/04/25 Camila Sousa MD [address] [place], [place] [address] public relations assistant 04/18/25 documented as of this encounter
--- OUTSIDE RECORDS SUMMARY | 2025-06-16 12:04 | XMS_ITS ---
Author Organization [facility] Source Produ ction (ClinicalSummary Clone) Address Unknown Care Team Providers Care Power System Electrical Engineer Name Role Phone Unavailable Primary Care Physician Unavailab le Results * [UNITY] ANEUPLOIDY NIPT Performed by: reportbrain Component Value Range Date Fraction 9.2% 01/21/2025 03 :30 pm UTC Sex Chromosome Aneuploidy NOT DETECTED 03:30 pm UTC Monosomy X LOW RISK <1 in 10,000 2024 03:30 pm UTC Trisomy 13 LOW RISK <1 in 10,000 2024 03:30 pm UTC Trisomy 18 LOW RISK <1 in 10,000 2024 03:30 pm UTC Trisomy 21 LOW RISK <1 in 10,000 2024 03:30 pm UTC Sex FEMALE 01/21/2025 03:3 0 pm UTC Gestation CHRISTINA 01/22/20 03:30 pm UTC For detailed report, see PDF See PDF 01/21/2025 03:30 pm UTC 01/21/2025 03:3 0 pm UTC Social History Observation Value Start Date End Date
--- OUTSIDE RECORDS SUMMARY | 2025-06-16 12:04 | XMS_ITS | Encounter Summary ---
Author Organization [facility] Address [address] [facility] [place] [address] Care Team Providers Care Consulting Systems Engineer Name Role Phone No Ref-Primary, Physician Primary Care Provider Isabelle Martínez APRN, CNM Unavailable [phone] Camila Sousa MD Unavailable [phone] Isabelle Martínez APRN, CNM Unavailable [phone] Encounter Details Date Type Department Care Team (Latest Contact Info) Description 06/07/2025 Results Follow-Up [facility] [place] [address] Floor,[address] [place] [facility] [address] [place] [address] Saroj Albrecht APRN CNM [facility] [address] [place] [address] Subj: Message about your results Social History Tobacco Use Types Packs/Day Years Used Date Smoking Tobacco: Former Cigarettes Smokeless Tobacco: Former Comments:5936-2622 Alcohol Use Standard Drinks/Week Comments Not Currently [...] in an abandoned building, in an overnight custodial, or couch-surfing.) Yes 04/25/2025 Are you worried [...] Description 06/20/2025 9:30 AM CDT Office Visit [facility] [place] [address] [place] [facility] [address] [place] [phone] Camila Sousa MD [address] [place], [place] [address] 06/28/2025 9:00 AM CDT Appointment [facility] [place] [address] [place] [address] Roxanna Clinton MD [address] [address] 06/28/2025 9:30 AM CDT Office Visit [facility] [place] [address] [place] [address] Roxanna Clinton MD [address] [address] 07/05/2025 9:45 AM CDT Office Visit [facility] [address] [place] [address] [phone] Izzy Stern MD [address] [place], [place] [address] 07/12/2025 10:00 AM CDT Office Visit [facility] [address] Floor,[address] [facility] [address] [phone] Camila Sousa MD [address] [place] [address] 07/19/2025 9:45 AM CDT Office Visit [facility] [address] Floor,[address] [facility] [address] [phone] Camila Sousa MD [address] [place] [address] 07/26/2025 10:15 AM CDT Office Visit [facility] [address] Floor,[address] [facility] [address] [phone] Camila Sousa MD [address] [place], [place] [address] 07/31/2025 9:45 AM PICKER AND SORTER LOAD AND UNLOAD Office Visit [facility] [address] Floor,[address] [place] [facility] [address] [place] [phone] Camila Sousa MD [address] [place], [place] [address] documented as of this encounter Visit Diagnoses Not on filedocumented in this encounter Care Teams Consulting Systems Engineer Relationship Specialty Start Date End Date No Ref-Primary, Physician PCP - General 03/12/25 Isabelle Martínez APRN CNM [address] [place], [place] [address] Certified Nurse Telecommunications Sales Representative national sales trainer 04/04/25 Camila Sousa MD [address] [place] [address] national sales trainer 04/18/25 Isabelle Martínez APRN CNTessy [address] [place] [address] Assigned OBGYN Provider 05/19/25 documented as of this encounter
--- OUTSIDE RECORDS SUMMARY | 2025-06-16 12:04 | XMS_ITS | Encounter Summary ---
Author Organization [facility] Address [address] [facility] [place] [address] Care Team Providers Care Graphic Illustrator Name Role Phone No Ref-Primary, Physician Primary Care Provider Isabelle Martínez APRN CNM Unavailable [phone] Camila Sousa MD Unavailable [phone] Isabelle Martínez APRN CNM Unavailable [phone] Reason for Visit * Reason Comments Medication Refill Encounter Details Date Type Department Care Team (Late st Contact Info) Description 05/23/2025 Refill [facility] [address] [place] [facility] [address] [place] [address] Camila Sousa MD [address] [facility] [address] [place] [address] Medication Refill Social History Tobacco Use Types Packs/Day Years Used Date Smoking Tobacco: Former Cigarettes Smokeless Tobacco: Former Comments:9906-7146 Alcohol Use Standard Drinks/Week Comments Not Currently [...] in an abandoned building, in an overnight prison, or couch-surfing.) Yes 04/25/2025 Are you worried [...] CDT Office Visit [facility] [place] [address] Floor,[address] [facility] [address] [place] [phone] Camila Sousa MD [address] [place], [place] [address] 06/28/2025 9:00 AM CDT Appointment [facility] [place] [address] [place] [address] Roxanna Clinton MD [address] [address] 06/28/2025 9:30 AM CDT Office Visit [facility] [place] [address] [place] [address] Roxanna Clinton MD [address] [address] 07/05/2025 9:45 AM CDT Office Visit [facility] [address] [facility] [address] [phone] Izzy Stern MD [address] [place], [place] [address] 07/12/2025 10:00 AM CDT Office Visit [facility] [address] Floor,[address] [facility] [address] [phone] Camila Sousa MD [address] [place] [address] 07/19/2025 9:45 AM CDT Office [facility] [address] Floor,[address] [facility] [address] [phone] Camila Sousa MD [address] [place] [address] 07/26/2025 10:15 AM CDT Office [facility] [address] Floor,[address] [facility] [address] [phone] Camila Sousa MD [address] [place], [place] [address] 07/31/2025 9:45 AM EMERGENCY VEHICLE TECHNICIAN Office Visit [facility] [address] Floor,[address] [place] [facility] [address] [place] [address] Camila Sousa MD [address] [place], [place] [address] documented as of this encounter Visit Diagnoses Diagnosis Gastroesophageal reflux disease without esophagitis Esophageal reflux documented in this encounter Care Teams Graphic Illustrator Relationship Specialty Start Date End Date No Ref-Primary, Physician PCP - General 03/12/25 Isabelle Martínez APRN CNM [address] [place], [place] [address] Certified Nurse Regulatory Compliance Engineer hide inspector 04/04/25 Camila Sousa MD [address] [place], [place] [address] hide inspector 04/18/25 Isabelle Martínez APRN CNM [address] [place], [place] [address] Assigned OBGYN Provider 05/19/25 documented as of this encounter
--- OUTSIDE RECORDS SUMMARY | 2025-06-16 12:04 | XMS_ITS | Encounter Summary ---
Author Organization [facility] Address [address] [facility] [place] [address] Care Team Providers Care Card Setter Name Role Phone No Ref-Primary, Physician Primary Care Provider Isabelle Martínez APRN CNM Unavailable [phone] Camila Sousa MD Unavailable [phone] Isabelle Martínez APRN CNM Unavailable [phone] Encounter Details Date Type Department Care Team (Late st Contact Info) Description 05/18/2025 [facility] Medical Advice [facility] [address] Floor,[address] [place] [facility] [address] [place] [address] Camila Sousa MD [address] [place] [address] Social History Tobacco Use Types Packs/Day Years Used Date Smoking Tobacco: Former Cigarettes Smokeless Tobacco: Former Comments:1870-0429 Alcohol Use Standard Drinks/Week Comments Not Currently [...] encounter Miscellaneous Notes * Telephone Encounter - Cara Jane RN - 05/22/2025 3:15 PM CDT Routed to MD needle control cheniller for advisement. RN messaged patient via MyOtherDrive. documented in this encounter Plan of Treatment Upcoming Encounters Date Type Department Care Team (Latest Contact Info) Description 06/20/2025 9:30 AM CDT Office Visit [facility] [address] Floor,[address] [place] [facility] [address] [place] [address] Camila Sousa MD [address] [place] [address] 06/28/2025 9:00 AM CDT Appointment [facility] [place] [facility] [address] [place] [address] Roxanna Clinton MD [address] [place] [address] 06/28/2025 9:30 AM CDT Office Visit [facility] [place] [facility] [address] [place] [address] Roxanna Clinton MD [address] [place] [address] 07/05/2025 9:45 AM CDT Office Visit [facility] [address] Floor,[address] [place] [facility] [address] [phone] Izzy Stern MD [address] [place] [address] 07/12/2025 10:00 AM CDT Office Visit [facility] [address] Floor,[address] [place] [facility] [address] [address] Camila Sousa MD [address] [place] [address] 07/19/2025 9:45 AM CDT Office Visit [facility] [address] Floor,[address] [place] [facility] [address] [phone] Camila Sousa MD [address] [place] [address] 07/26/2025 10:15 AM CDT Office Visit [facility] [address] Floor,[address] [place] [facility] [address] [place] [address] Camila Sousa MD [address] [place] [address] 07/31/2025 9:45 AM NET SOFTWARE ENGINEER Office Visit [facility] [address] Floor,[address] [place] [facility] [address] [phone] Caimla Sousa MD [address] [place], [place] [address] documented as of this encounter Visit Diagnoses Not on filedocumented in this encounter Care Teams Card Setter Relationship Specialty Start Date End Date No Ref-Primary, Physician PCP - General 03/12/25 Isabelle Martínez APRN CNM [address] [place] [address] Certified Nurse Tire Balancer burlap worker 04/04/25 Camila Sousa MD [address] [place] [address] burlap worker 04/18/25 Isabelle Martínez APRN CNM [address] [place] [address] Assigned OBGYN Provider 05/19/25 documented as of this encounter
--- OUTSIDE RECORDS SUMMARY | 2025-06-16 12:04 | XMS_ITS | Encounter Summary ---
Author Organization [place] Address [facility] [place] [address] Care Team Providers Care Cylinder Devalver Name Role Phone No Ref-Primary, Physician Primary Care Provider Isabelle Martínez APRN CNM Unavailable [phone] Camila Sousa MD Unavailable [phone] Isabelle Martínez APRN CNM Unavailable [phone] Encounter Details Date Type Department Care Team (Late st Contact Info) Description 05/24/2025 Telephone [facility] [address]rd Floor,[address] [place] [facility] [address] [place] [address] Bhavani Moore CMA Social History Tobacco Use Types Packs/Day Years Used Date Smoking Tobacco: Former Cigarettes Smokeless Tobacco: Former Comments:6144-5874 Alcohol Use Standard Drinks/Week Comments Not Currently [...] in an abandoned building, in an overnight skilled nursing, or couch-surfing.) Yes 04/25/2025 Are you worried [...] encounter Miscellaneous Notes * Telephone Encounter - Bhavani Moore CMA - 05/24/2025 8:38 AM CDT LVM for patient to call back to schedule PAC appointment for delivery planning Elin Roberto Low Altitude Air Defense Officer documented in this encounter Plan of Treatment Upcoming Encounters Date Type Department Care Team (Latest Contact Info) Description 06/20/2025 9:30 AM CDT Office Visit [facility] [address] Floor,[address] [place] [facility] [address] [place] [address] Camila Sousa MD [address] [facility] [address] [place] [address] 06/28/2025 9:00 AM CDT Appointment [facility] [place] [address] [phone] Roxanna Clinton MD [address] [address] 06/28/2025 9:30 AM CDT Office Visit [facility] [address] [address] Roxanna Clinton MD [address] [address] 07/05/2025 9:45 AM CDT Office Visit [facility] [address] Floor,[address] [place] [address] [phone] Izzy Stern MD [address] [place], [place] [address] 07/12/2025 10:00 AM CDT Office Visit [facility] [address] 3[address] Floor,[address] [place] [address] [phone] Camila Sousa MD [address] [place] [address] 07/19/2025 9:45 AM CDT Office Visit [facility] [address] 3[address] Floor,[address] [place] [address] [phone] Camila Sousa MD [address] [place] [address] 07/26/2025 10:15 AM CDT Office Visit [facility] [address] Floor,[address] [place] [facility] [address] [place] [phone] Camila Sousa MD [address] [place], [place] [address] 07/31/2025 9:45 AM OPTICAL COATING TECHNICIAN Office Visit [facility] [address] [place] [facility] [address] [place] [phone] Camila Sousa MD [address] [place], [place] [address] documented as of this encounter Visit Diagnoses Not on filedocumented in this encounter Care Teams Cylinder Devalver Relationship Specialty Start Date End Date No Ref-Primary, Physician PCP - General 03/12/25 Isabelle Martínez APRN CNM [address] [place], [place] [phone] Certified Nurse Python Django Developer assistant associate professor 04/04/25 Camila Sousa MD [address] [place], [place] [phone] assistant associate professor 04/18/25 Isabelle Martínez APRN CNTessy [address] [place], [place] [id number] Assigned OBGYN Provider 05/19/25 documented as of this encounter
--- OUTSIDE RECORDS SUMMARY | 2025-06-16 12:05 | XMS_ITS | Encounter Summary ---
Author Organization [employer] Address [address] [facility] [place] [address] Care Team Providers Care Refrigeration Engine Operator Name Role Phone No Ref-Primary, Physician Primary Care Provider Isabelle Martínez APRN CNM Unavailable [phone] Camila Sousa MD Unavailable [phone] Isabelle Martínez APRN CNM Unavailable [phone] Encounter Details Date Type Department Care Team (Late st Contact Info) Description 01/12/2025 External Order Results [facility] [address] [place] [address] Outside, Provider Social History Tobacco Use Types Packs/Day Years Used Date Smoking Tobacco: Never Assessed Comments Unknown Sex and Gender Information Value Date Recorded Sex Assigned at Not on file Legal Sex Female 7:10 AM CDT Gender Identity Not on file Sexual Orientation Not on file documented as of this encounter Plan of Treatment Upcoming Encounters Date Type Department Care Team (Latest Contact Info) Description 06/20/2025 9:30 AM CDT Office Visit [facility] [address] 3rd Floor,[address] [place] [facility] [address] [place] [phone] Camila Sousa MD [address] [place] [address] 06/28/2025 9:00 AM CDT Appointment [facility] [place] [address] [place] [phone] Roxanna Clinton MD [address] [place] [address] 06/28/2025 9:30 AM CDT Office Visit [facility] [address] [place] [address] Roxanna Clinton MD [address] [place] [address] 07/05/2025 9:45 AM CDT Office Visit [facility] [address] 3rd Floor,[address] [place] [facility] [address] [phone] Izzy Stern MD [address] [place] [phone] 07/12/2025 10:00 AM CDT Office Visit [facility] [address] [place] [facility] [address] [phone] Camila Sousa MD [address] [place] [address] 07/19/2025 9:45 AM CDT Office Visit [facility] [address] [place] [facility] [address] [phone] Camila Sousa MD [address] [place] [address] 07/26/2025 10:15 AM CDT Office Visit [facility] [address] [place] [facility] [address] [phone] Camila Sousa MD [address] [place] [address] 07/31/2025 9:45 AM ADDICTIONS THERAPIST Office Visit [facility] [address] [place] [facility] [address] [place] [phone] Camila Sousa MD [address] [place] [address] documented as of this encounter Procedures Procedure Name Priority Date/Time Associated Diagnosis Comments ROUTINE UA WITH MICROSCOPIC Routine 03/05/2025 5:30 PM CDT ROUTINE UA WITH MICROSCOPIC Routine 01/12/2025 11:54 AM CDT RUBELLA ANTIBODY IGG (EXTERNAL RESULT) Routine 01/12/2025 11:25 AM CDT HEPATITIS B SURFACE ANTIBODY Routine 01/12/2025 11:25 AM CDT HIV ANTIGEN ANTIBODY COMBO Routine 01/12/2025 11:25 AM CDT RAPID PLASMA REAGIN W RFLX TO TITER Routine 01/12/2025 11:25 AM CDT CBC WITH PLATELETS & DIFFERENTIAL Routine 01/12/2025 11:25 AM CDT EXTERNAL LAB RESULTS Routine 01/12/2025 11:25 AM CDT EXTERNAL LAB RESULTS Routine 01/12/2025 11:25 AM CDT HEPATITIS C ANTIBODY Routine 01/12/2025 11:25 AM CDT HEPATITIS B SURFACE ANTIGEN Routine 01/12/2025 11:25 AM CDT HEPATITIS B CORE ANTIBODY Routine 01/12/2025 11:25 AM CDT HEMOGLOBIN A1C Routine 01/12/2025 11:25 AM CDT GONORRHEA (EXTERNAL RESULT) Routine 12/20/2024 12:00 AM CDT CHLAMYDIA TRACHOMATIS PCR (EXTERNAL RESULT) Routine 12/20/2024 12:00 AM CDT ROUTINE UA WITH MICROSCOPIC Routine 12/20/2024 12:00 AM CDT HCG QUANTITATIVE Routine 12/09/2024 11:25 AM CDT documented in this encounter Results * (ABNORMAL) UA with Microscopic (03/05/2025 5:30 PM CDT) Color Urine (External) Yellow Yellow NON-INTERFAC ED (ONBASE SCANS) Appearance Urine (External) Cloudy(A) Clear NON-INTERFAC ED (ONBASE SCANS) pH Urine (External) 6.0 5.0 - 8.5 NON-INTERFAC ED (ONBASE SCANS) Specific [place] Urine (External) 1.020 1.000 - 1.030 NON-INTERFAC ED (ONBASE SCANS) Protein Albumin Ur (External) Negative Negative NON-INTERFAC ED (ONBASE SCANS) Glucose Urine (External) Trace(A) Negative NON-INTERFAC ED (ONBASE SCANS) Ketones Urine (External) Negative Negative NON-INTERFAC ED (ONBASE SCANS) Blood Urine (External) Negative Negative NON-INTERFAC ED (ONBASE SCANS) Nitrites Urine (External) Negative Negative NON-INTERFAC ED (ONBASE SCANS) Bilirubin Urine (External) Negative Negative NON-INTERFAC ED (ONBASE SCANS) Urobilinogen (External) 0.2 0.2 - 1.0 NON-INTERFAC ED (ONBASE SCANS) Leukocyte Esterase Urine (External) 1+(A) Negative NON-INTERFAC ED (ONBASE SCANS) RBC Urine (External) 0-2 0 - 2 NON-INTERFAC ED (ONBASE SCANS) WBC Urine (External) 5-10(A) 0 - 5 NON-INTERFAC ED (ONBASE SCANS) Squamous Epithelial Urine (External) Moderate(A) None-few NON-INTERFAC ED (ONBASE SCANS) Bacteria Urine (External) Many(A) None NON-INTERFAC ED (ONBASE SCANS) Urine 03/05/2025 5:30 PM CDT Narrative [place] PFT - 04/13/2025 7:06 AM CDT Verified by Camila Villarreal on 04/13/2025. us Provider Outside LAB - URINE ORDERABLES Edited R esult - Final KAEN PFT NON-INTERFACED (ONBASE SCANS) * (ABNORMAL) UA with Microscopic (01/12/2025 11:54 AM CDT) Color Urine (External) Yellow Yellow NON-INTERFAC ED (ONBASE SCANS) Appearance Urine (External) Cloudy(A) Clear NON-INTERFAC ED (ONBASE SCANS) pH Urine (External) 7.0 5.0 - 8.5 NON-INTERFAC ED (ONBASE SCANS) Specific [place] Urine (External) 1.025 1.000 - 1.030 NON-INTERFAC ED (ONBASE SCANS) Protein Albumin Ur (External) Trace(A) Negative NON-INTERFAC ED (ONBASE SCANS) Glucose Urine (External) Trace(A) Negative NON-INTERFAC ED (ONBASE SCANS) Ketones Urine (External) Trace(A) Negative NON-INTERFAC ED (ONBASE SCANS) Blood Urine (External) Negative Negative NON-INTERFAC ED (ONBASE SCANS) Nitrites Urine (External) Negative Negative NON-INTERFAC ED (ONBASE SCANS) Bilirubin Urine (External) Negative Negative NON-INTERFAC ED (ONBASE SCANS) Urobilinogen (External) 1.0 0.2 - 1.0 NON-INTERFAC ED (ONBASE SCANS) Leukocyte Esterase Urine (External) Negative Negative NON-INTERFAC ED (ONBASE SCANS) RBC Urine (External) 0-2 0 - 2 NON-INTERFAC ED (ONBASE SCANS) WBC Urine (External) 0-2 0 - 5 NON-INTERFAC ED (ONBASE SCANS) Squamous Epithelial Urine (External) Few None-few NON-INTERFAC ED (ONBASE SCANS) Bacteria Urine (External) None None NON-INTERFAC ED (ONBASE SCANS) Urine 01/12/2025 11:5 4 AM CDT Narrative [facility] PFT - 04/13/2025 7:06 AM CDT Verified by Camila Villarreal on 04/13/2025. Provider Outside LAB - URINE ORDERABLES Edited R [employer] - [place] Performing Organization Address [facility] Co de Phone Number [facility] P[facility] NON-INTERFACED (ONBASE SCANS) * Hepatitis B core antibody (01/12/2025 11:25 AM CDT) Hepatitis B Core Yumiko (External) Negative Negative NON-INTERFACE D (ONBASE SCANS) Blood BLOOD SPECIMEN / Unknown 01/12/2025 11:25 AM CDT Narrative [facility] PFT - 04/13/2025 7:06 AM CDT Verified by Camila Villarreal on 04/13/2025. Provider Outside LAB - BLOOD ORDERABLES Edited R Great[employer] Performing Organization Address [facility] de Phone Number KEARAEZE PFT NON-INTERFACED (ONBASE SCANS) * (ABNORMAL) CBC with Platelets & Differential (01/12/2025 11:25 AM CDT) WBC Count (External) 7.56 4.50 - 11.00 K/uL NON-INTERFACE D (ONBASE SCANS) RBC Count (External) 4.19 4.00 - 5.20 m/uL NON-INTERFACE D (ONBASE SCANS) Hemoglobin (External) 13.4 12.0 - 16.0 g/dL NON-INTERFACE D (ONBASE SCANS) Hematocrit (External) 38.4 33.0 - 51.0 % NON-INTERFACE D (ONBASE SCANS) MCV (External) 92 80 - 100 fL NON-INTERFACE D (ONBASE SCANS) MCH (External) 32 26 - 34 pg NON- INTERFACE D (ONBASE SCANS) MCHC (External) 35 32 - 36 g/dL NON-INTERFACE D (ONBASE SCANS) RDW (External) 12.5 11.5 - 15.5 % NON-INTERFACE D (ONBASE SCANS) Platelet Count (External) 243 140 - 440 K/uL NON-INTERFACE D (ONBASE SCANS) % Neutrophils (External) 76.1(H) 42.0 - 72.0 % NON-INTERFACE D (ONBASE SCANS) % Lymphocytes (External) 19.0(L) 20 - 44 % NON-INTERFACE D (ONBASE SCANS) % Monocytes (External) 4.5 0.0 - 11.0 % NON-INTERFACE D (ONBASE SCANS) % Eosinophils (External) 0.0 0.0 - 7.0 % NON-INTERFACE D (ONBASE SCANS) % Basophils (External) 0.1 0.0 - 3.0 % NON-INTERFACE D (ONBASE SCANS) Absolute Neutrophils (External) 5.80 1.7 - 7.0 K/uL NON-INTERFACE D (ONBASE SCANS) Absolute Lymphocytes (External) 1.40 0.90 - 2.90 K/uL NON-INTERFACE D (ONBASE SCANS) Absolute Monocytes (External) 0.34 0.00 - 0.90 K/uL NON-INTERFACE D (ONBASE SCANS) Absolute Eosinophils (External) 0.00 0.00 - 0.50 K/uL NON-INTERFACE D (ONBASE SCANS) Absolute Basophils (External) 0.01 0.00 - 0.30 K/uL NON-INTERFACE D (ONBASE SCANS) Absolute Immature Granulocytes (External) 0.02 0.00 - 0.30 K/uL NON-INTERFACE D (ONBASE SCANS) % Immature Granulocytes (External) 0.3 % NON-INTERFACE D (ONBASE SCANS) Blood BLOOD SPECIMEN / Unknown 01/12/2025 11:25 AM CDT Narrative [place] PFT - 04/13/2025 7:06 AM CDT Verified by Camila Villarreal on 04/13/2025. us Provider Outside LAB - BLOOD ORDERABLES Edited R esult - Final [place] PFAddison NON-INTERFACED (ONBASE SCANS) * External Lab Results (01/12/2025 11:25 AM CDT) Scan Lab Results (External) See Scanned Report NON-INTERFACE D (ONBASE SCANS) Comment: Hemoglobin Evaluation: Hemoglobin A Hemoglobin A2 Hemoglobin C Hemoglobin E Hemoglobin F Hemoglobin S Hemoglobin Other 2 01/12/2025 11:2 5 AM CDT Narrative [facility] PFT - 04/13/2025 7:06 AM CDT Verified by Camila Villarreal on 04/13/2025. us Provider Outside LABORATORY Edited Result - Final BREEZE PFT NON-INTERFACED (ONBASE SCANS) * Hemoglobin A1c (01/12/2025 11:25 AM CDT) Pathologist [facility] Hemoglobin A1C (External) 5.0 0 - 5.6 % NON-INTERFACED (ONBASE SCANS) Blood BLOOD SPECIMEN / Unknown 01/12/2025 11:25 AM CDT Narrative [facility] PFT - 04/13/2025 7:06 AM CDT Verified by Camila Villarreal on 04/13/2025. us Provider Outside LAB - BLOOD ORDERABLES Edited R Zen[employer] - Final Performing Organization Address [facility] Co de Phone Number [facility] PFT NON-INTERFACED (ONBASE SCANS) * Rapid Plasma Reagin w Rflx to TITER (01/12/2025 11:25 AM CDT) Pathologist [facility] Rapid Plasma Reagin (External) Non reactive Non reactive NON-INTERFAC ED (ONBASE SCANS) Blood BLOOD SPECIMEN / Unknown 01/12/2025 11:25 AM CDT Narrative [facility] PFT - 04/13/2025 7:06 AM CDT Verified by Camila Villarreal on 04/13/2025. us Provider Outside LAB - BLOOD ORDERABLES Edited R esult - Final [facility] PFT NON-INTERFACED (ONBASE SCANS) * Hepatitis B surface antigen (01/12/2025 11:25 AM CDT) Hep B Surface Agn (External) Negative Negative NON-INTERFACE D (ONBASE SCANS) Blood BLOOD SPECIMEN / Unknown 01/12/2025 11:25 AM CDT Narrative [facility]REEZE PFT - 04/13/2025 7:06 AM CDT Verified by Camila Villarreal on 04/13/2025. Provider Outside LAB - BLOOD ORDERABLES Edited [employer] [place] Performing Organization Address City/[facility]/ZIP Co de Phone Number BREEZE PFT NON-INTERFACED (ONBASE SCANS) * (ABNORMAL) Hepatitis B Surface Antibody (01/12/2025 11:25 AM CDT) Hep B Surface Yumiko (External) Positive(A ) Negative NON-INTERFACE D (ONBASE SCANS) Blood BLOOD SPECIMEN / Unknown 01/12/2025 11:25 AM CDT Narrative [facility] PFT - 04/13/2025 7:06 AM CDT Verified by Camila Villarreal on 04/13/2025. Provider Outside LAB - BLOOD ORDERABLES Edited [employer] Performing Organization Address [facility] Co de Phone Number [facility] PFT NON-INTERFACED (ONBASE SCANS) * Hepatitis C antibody (01/12/2025 11:25 AM CDT) Hepatitis C Antibody (External) Negative Negative NON-INTERFACE D (ONBASE SCANS) Blood BLOOD SPECIMEN / Unknown 01/12/2025 11:25 AM CDT Narrative [facility]ZE PFT - 04/13/2025 7:06 AM CDT Verified by Camila Villarreal on 04/13/2025. Provider Outside LAB - BLOOD ORDERABLES Edited [employer] Performing Organization Address [facility]/ZIP Co de Phone Number [facility] PFT NON-INTERFACED (ONBASE SCANS) * HIV Antigen Antibody Combo [place] (01/12/2025 11:25 AM CDT) Pathologist [facility] HIV 1&2 Antibody (External) Negative Negative NON-INTERFACE D (ONBASE SCANS) Blood BLOOD SPECIMEN / Unknown 01/12/2025 11:25 AM CDT Narrative [facility] PFT - 04/13/2025 7:06 AM CDT Verified by Camila Villarreal on 04/13/2025. us Provider Outside LAB - BLOOD ORDERABLES Edited R esult - Final B[facility] PFT NON-INTERFACED (ONBASE SCANS) * Rubella Antibody IgG (External Result) (01/12/2025 11:25 AM CDT) Pathologist [facility] Rubella Antibody IgG (External) 55.6 IU/mL NON-INTERFACED (ONBASE SCANS) 01/12/2025 11:2 5 AM CDT Narrative [facility] PFT - 04/13/2025 7:06 AM CDT Verified by Camila Villarreal on 04/13/2025. us Provider Outside LAB - HIM EXTERNAL RESULT Edite d Result - Final Performing Organization Address [facility] Co de Phone Number B[facility] PFT NON-INTERFACED (ONBASE SCANS) * External Lab Results (01/12/2025 11:25 AM CDT) Pathologist [facility] Scan Lab Results (External) See Scanned Report NON-INTERFACE D (ONBASE SCANS) Comment:VZV IgG Ab Confirm 01/12/2025 11:2 5 AM CDT Narrative [facility] PFT - 04/13/2025 7:06 AM CDT Verified by Camila Villarreal on 04/13/2025. us Provider Outside LABORATORY Edited Result - Final B[facility] PFT NON-INTERFACED (ONBASE SCANS) * UA with Microscopic (12/20/2024 12:00 AM CDT) Color Urine (External) Yellow Yellow NON-INTERFAC ED (ONBASE SCANS) Appearance Urine (External) Clear Clear NON-INTERFAC ED (ONBASE SCANS) pH Urine (External) 6.0 5.0 - 8.5 NON-INTERFAC ED (ONBASE SCANS) Specific [place] Urine (External) 1.025 1.000 - 1.030 NON-INTERFAC ED (ONBASE SCANS) Protein Albumin Ur (External) Negative Negative NON-INTERFAC ED (ONBASE SCANS) Glucose Urine (External) Negative Negative NON-INTERFAC ED (ONBASE SCANS) Ketones Urine (External) Negative Negative NON-INTERFAC ED (ONBASE SCANS) Blood Urine (External) Negative Negative NON-INTERFAC ED (ONBASE SCANS) Nitrites Urine (External) Negative Negative NON-INTERFAC ED (ONBASE SCANS) Bilirubin Urine (External) Negative Negative NON-INTERFAC ED (ONBASE SCANS) Urobilinogen (External) 0.2 0.2 - 1.0 NON-INTERFAC ED (ONBASE SCANS) Leukocyte Esterase Urine (External) Negative Negative NON-INTERFAC ED (ONBASE SCANS) Urine 12/20/2024 Narrative B[facility]ZE PFT - 04/13/2025 7:06 AM CDT Verified by Camila Villarreal on 04/13/2025. Provider Outside LAB - URINE ORDERABLES Edited R esult - Final [facility] PFT NON-INTERFACED (ONBASE SCANS) * Chlamydia Trachomatis PCR (External Result) (12/20/2024 12:00 AM CDT) Chlamydia Trachomatis PCR Not detected No detected NON-INTERFAC ED (ONBASE SCANS) 12/20/2024 Narrative [facility] PFT - 04/13/2025 7:06 AM CDT Verified by Camila Villarreal on 04/13/2025. us Provider Outside LAB - HIM EXTERNAL RESULT Edite d Result - Final BREEZE PFT NON-INTERFACED (ONBASE SCANS) * Gonorrhea (External Result) (12/20/2024 12:00 AM CDT) N Gonorrhea PCR Not detected No detected NON-INTERFAC ED (ONBASE SCANS) 12/20/2024 Narrative [facility] PFT - 04/13/2025 7:06 AM CDT Verified by Camila Villarreal on 04/13/2025. us Provider Outside LAB - HIM EXTERNAL RESULT Edite d Result - Final BREEZE PFT NON-INTERFACED (ONBASE SCANS) * hCG Quantitative (12/09/2024 11:25 AM CDT) hCG Quantitative 3,029.90 mIU/mL NON -INTERFACE D (ONBASE SCANS) Blood BLOOD SPECIMEN / Unknown 12/09/2024 11:25 AM CDT Narrative BREEZE PFT - 04/13/2025 7:06 AM CDT Verified by Camila Villarreal on 04/13/2025. us Provider Outside LAB - BLOOD ORDERABLES Edited R esult - Final BREEZE PFT NON-INTERFACED (ONBASE SCANS) documented in this encounter Visit Diagnoses Not on filedocumented in this encounter Care Teams Refrigeration Engine Operator Relationship Specialty Start Date End Date No Ref-Primary, Physician PCP - General 03/12/25 Isabelle Martínez APRN CNM [address] [place], [place] [id number] Certified Nurse Restaurant Attendant software engineer kernel 04/04/25 Camila Sousa MD [address] [place], [place] [phone] software engineer kernel 04/18/25 Isabelle Martínez APRN CNM [address] [facility] [address] [place] [address] Assigned OBGYN Provider 05/19/25 documented as of this encounter
[2025-06-16 12:45] LABS: Appearance Urine Cloudy (Clear)
--- NOTE | 2025-06-16 12:54 | CRLHL7_ITS ---
For Patients: As a result of the Cures Act, medical imaging exams and procedure reports are released immediately into your electronic medical record. You may view this report before your referring provider. If you have questions, please contact your health care provider. INDICATION: Right lower quadrant pain. COMPARISON: OB ultrasound 04/16/2025. TECHNIQUE: Ultrasound OB pelvis transabdominal. Real time grayscale imaging of the fetus was performed without non-stress testing. FINDINGS: Sonographic imaging demonstrates a single living intrauterine gestation. The fetus has a regular cardiac rate of 142 beats per minute. The fetus has a breech orientation. Bilobed placenta again noted which is predominantly anterior, with a small posterior component at the fundus. No evidence of placenta previa or abruption on the provided views. Single deepest pocket measures 7.7 cm. breathing movements: 2/2 Gross body movements: 2/2 tone: 2/2 Amniotic fluid volume: 2/2 Total: 8/8 IMPRESSION: 1. Normal biophysical profile score 8 out of 8. 2. Bilobed placenta again noted, without evidence of placenta previa or abruption. Dictated by Hayley Burgess MD @ 06/16/2025 3:13:50 PM (Electronically Signed)
[2025-06-16 13:15] LABS: Hematocrit* 34.8 % (33.0-51.0); Hemoglobin* 12.0 gm/dL (12.0-16.0); Immature Granulocytes Abs Auto 0.10 K/uL (0.00-0.30); Immature Granulocytes Pct Auto 1.0 %; Mean Corpuscular HGB Conc 35 gm/dL (32-36); Mean Corpuscular Hemoglobin 32 pg (26-34); Mean Corpuscular Volume 94 fL (80-100); RDW Coefficient of Variation % 13.0 % (11.5-15.5); Red Blood Count* 3.71 m/uL (4.00-5.20); White Blood Count* 9.87 K/uL (4.50-11.00)
[2025-06-16 13:19] LABS: Lymphocytes Absolute Auto 1.40 K/uL (0.90-2.90); Slide Review Reflex No
[2025-06-16 13:26] LABS: Trichomonas No Trichomonas Seen (None Seen)
[2025-06-16 13:27] LABS: Chloride* 107 mmol/L (96-114)
[2025-06-16 13:28] LABS: Albumin* 3.6 g/dL (3.3-5.0); Potassium* 3.7 mmol/L (3.6-5.1); Sodium* 134 mmol/L (135-149)
[2025-06-16 13:30] LABS: Blood Urea Nitrogen* 4 mg/dL (5-24); Creatinine* 0.4 mg/dL (0.5-1.5); Estimated Glomerular Filt Rate 141 ml/min
[2025-06-16 13:31] LABS: Alanine Aminotransferase* 18 U/L (4-35); Alkaline Phosphatase* 89 U/L (40-150); Anion Gap 5 mEq/L (7-15); Aspartate Amino Transferase* 22 U/L (12-35); Bilirubin Total* 0.2 mg/dL (0.1-1.5); Calcium* 8.9 mg/dL (8.4-10.6); Carbon Dioxide* 22 mmol/L (20-32); Glucose* 104 mg/dL (60-115); Total Protein* 6.3 g/dL (6.0-8.3)
--- NOTE | 2025-06-16 13:38 | CRLHL7_ITS ---
For Patients: As a result of the Century Cures Act, medical imaging exams and procedure reports are released immediately into your electronic medical record. You may view this report before your referring provider. If you have questions, please contact your health care provider. INDICATION: Right lower quadrant pain, blood in urine, history of kidney and bladder infections, patient. COMPARISON: None. TECHNIQUE: Grayscale and color Doppler images were acquired of the kidneys and urinary bladder. FINDINGS: Right kidney: Measures 14.8 cm in length. Normal cortical thickness and echogenicity. Moderate hydronephrosis and proximal hydroureter. No calculus or mass. Left kidney: Measures 13.2 cm in length. Normal cortical thickness and echogenicity. No hydronephrosis, calculus, or mass. Bladder: The urinary bladder is mildly distended with prevoid volume measuring 122 cc. No significant postvoid residual. No significant wall thickening. Color Doppler images demonstrate presence of both ureteral jets. Debris layering in the bladder. IMPRESSION: 1. Moderate right hydronephrosis and proximal hydroureter. Differential considerations include physiologic hydronephrosis of versus obstructing stone. 2. Normal sonographic appearance of the left kidney without hydronephrosis. 3. Debris layering in the bladder. Both ureteral jets were visualized. Dictated by Hayley Burgess MD @ 06/16/2025 3:08:50 PM (Electronically Signed)
[2025-06-16] MEDS: ACETAMINOPHEN 500 MG TABLET 1000 MG PO (14:00)
--- NOTE | 2025-06-16 15:33 | CRLHL7_ITS ---
For Patients: As a result of the Century Cures Act, medical imaging exams and procedure reports are released immediately into your electronic medical record. You may view this report before your referring provider. If you have questions, please contact your health care provider. INDICATION: [place] on ultrasound TECHNIQUE: CT abdomen and pelvis without contrast. COMPARISON: None. FINDINGS: Lower chest: Unremarkable. Liver: Normal in size and attenuation. No suspicious masses. Gallbladder and bile ducts: No stones or inflammation. No biliary dilatation. Pancreas: Unremarkable. No mass or inflammation. Spleen: Normal in size. No masses. Adrenal glands: Normal in size. No nodules. Kidneys: Left kidney unremarkable. Right lower pole nonobstructing 7 millimeter calcification. Moderate right-sided hydro nephrosis with dilatation of the right proximal and mid ureter. The distal ureteral course can not be visualized. This probably is related to physiologic hydronephrosis due to mass effect from the gravid uterus. GI tract: Unremarkable. Normal in caliber. No sign of mass or inflammation. Normal appendix. Vasculature: Abdominal aorta is normal in caliber. Lymph nodes: No lymphadenopathy. Peritoneum/Abdominal Wall: Unremarkable. No sign of mass or infiltration. No free air or significant free fluid. Pelvis: Urinary bladder decompressed with mild wall thickening. Gravid uterus. Bones: Unremarkable for age. IMPRESSION: 1. Nonobstructing right renal calculus. Moderate right hydronephrosis hydroureter without obstructing stone seen this probably is physiologic hydronephrosis due to mass effect from gravid uterus. 2. Gravid uterus. Please note that all CT scans at this facility use dose modulation, iterative reconstruction, and/or weight-based dosing when appropriate to reduce radiation dose to as low as reasonably achievable. Dictated by Inez Rodriguez MD @ 06/16/2025 5:01:33 PM (Electronically Signed)
--- NOTE | 2025-06-16 15:46 | P.OBLDTN_ITS ---
OB - Triage/Final Diagnosis Visit Information Time Seen by Provider: 15:00 Date Seen: 06/16/25 Narrative: Macy is a 24 year old G2 para 1001 at 32.5 weeks gestation by LMP, who presents with right flank pain that radiates to her groin. Report she was in her normal state of health last night but with up in the AM with back discomfort and some Schley laurence contractions. She rested, hydrated and took an Epson salt bath that resolved Schley laurence contractions completely. However, when she was getting out of the bath, she had right colicky flank pain that radiated to her groin that she rated 6-8/10 in terms of pain. She decided to seek care at that point. Patient denies fever, chills, chest pain, SOB, n/v, headache, vision changes, dizziness, dysuria, hematuria. +suprapubic pain. Denies any GI symptoms. No constipation or diarrhea. Patient denies vaginal bleeding, leakage of fluid, or contractions. Endorses very active movement today. Systemically, she feels well except for the pain. Significantly, has hx of recurrent urinary tract infection. Has never had a renal stone but was told by urology that she's at higher risk for developing renal stones. OB US on 06/16/25 1. BPP 05/04 2. Bilobed placenta again noted, without evidence of placenta previa or abruption. Renal US on 06/16/25 Right kidney: Measures 14.8 cm in length. Normal cortical thickness and echogenicity. Moderate hydronephrosis and proximal hydroureter. No calculus or mass. Left kidney: Measures 13.2 cm in length. Normal cortical thickness and echogenicity. No hydronephrosis, calculus, or mass. Bladder: The urinary bladder is mildly distended with prevoid volume measuring 122 cc. No significant postvoid residual. No significant wall thickening. Color Doppler images demonstrate presence of both ureteral jets. Debris layering in the bladder. IMPRESSION: 1. Moderate right hydronephrosis and proximal hydroureter. Differential considerations include physiologic hydronephrosis of versus obstructing stone. 2. Normal sonographic appearance of the left kidney without hydronephrosis. 3. Debris layering in the bladder. Both ureteral jets were visualized. 06/06/25 labs - WBC 9.87 - Hgb 12.0 - Plt 200 - Cr 0.4 - ALT 18, AST 22 - UA: 3+ blood, 1+ LE, neg nitrite, urine RBC 25-50, Urine WBC wnl, Urine bacteria few - UCx pending - Negative vaginitis panel Physical exam: General: No acute distress Psych: Alert and oriented x4, full affect HEENT: Normocephalic, atraumatic Lungs: Unlabored breathing Abdomen: Appropriately gravid, soft, no tenderness on palpation, no rebound, or guarding. Back: +CVAT on right side Skin: No lesions or rashes Lower extremities: Trace bilateral lower extremity edema Pelvic exam: Deferred She reports her pain is not improved despite 1000 mg of Tylenol, 10 mg of Morphine, and 100 mg of hydroxyzine. It is not present all the time but comes and go, localized to the RLQ. Given that a stone was not visualized on ultrasound and her pain has not improved, will order CT Abdomen. 06/16: CTAP 1. Nonobstructing right renal calculus. Moderate right hydronephrosis hydroureter without obstructing stone seen this probably is physiologic hydronephrosis due to mass effect from gravid uterus. 2. Gravid uterus. A/P #Right renal calculus #UTI - Nonobstructing 7 mm - Given patient is well-appearing, afebrile, normal signs and white blood cell count within normal limits, low concern for pyelonephritis - UA indicative of renal stone and possible UTI. Urine culture pending. Will treat with cephalexin 500 mg QID x 7 days while awaiting culture - Plan for outpatient conservative management with hydration and pain control to facilitate passage of renal stone - Fluid intake goal: >/= 2-2.5 L/day urine output. eRx Flomax 0.4 mg QD - Pain control: 1000 mg of tylenol Q6H, 5mg of oxycodone Q6H for break throught pain - F/u with regular OB. Reports she has appointment next Wednesday 06/20 - Seek care emergently if: fevers, chill, n/v, intractable pain as these are signed of conservative management failure #[id number] - Getting routine care - No concerns at this point - String return and labor precautions given NST: 130 bpm, moderate variability, multiple 15x15 accelerations, negative deceleration [place]: Quiescent Evaluation Laboratory results: Laboratory Tests 06/16/25 06/16/25 06/16/25 Range/Units 13:18 13:05 12:38 WBC 9.87 (4.50-11.00) K/uL RBC 3.71 L (4.00-5.20) m/uL Hgb 12.0 (12.0-16.0) gm/dL Hct 34.8 (33.0-51.0) % MCV 94 (80-100) fL MCH 32 (26-34) pg MCHC 35 (32-36) gm/dL RDW Coeff of Onel 13.0 (11.5-15.5) % Plt Count 200 (140-440) K/uL Neut % (Auto) 78.0 H (42.0-72.0) % Lymph % (Auto) 14.5 L (20-44) % [place] % (Auto) 6.3 (0.0-11.0) % Eos % (Auto) 0.0 (0.0-7.0) % Baso % (Auto) 0.2 (0.0-3.0) % Neut # (Auto) 7.70 H (1.7-7.0) K/uL Lymph # (Auto) 1.40 (0.90-2.90) K/uL [place] # (Auto) 0.60 (0.00-0.90) K/UL Eos # (Auto) 0.00 (0.00-0.50) K/uL Baso # (Auto) 0.02 (0.00-0.30) K/uL Abs Immat Gran (auto) 0.10 (0.00-0.30) K/uL Imm/Tot Granulo (auto) 1.0 % Sodium 134 L (135-149) mmol/L Potassium 3.7 (3.6-5.1) mmol/L Chloride 107 (96-114) mmol/L Carbon Dioxide 22 (20-32) mmol/L Anion Gap 5 L (7-15) mEq/L BUN 4 L (5-24) mg/dL Creatinine 0.4 L (0.5-1.5) mg/dL Estimated GFR 141 ml/min Glucose 104 (60-115) mg/dL Calcium 8.9 (8.4-10.6) mg/dL Total Bilirubin 0.2 (0.1-1.5) mg/dL AST 22 (12-35) U/L ALT 18 (4-35) U/L Alkaline Phosphatase 89 (40-150) U/L Total Protein 6.3 (6.0-8.3) g/dL Albumin 3.6 (3.3-5.0) g/dL Urine Color Yellow (Yellow) Urine Appearance Cloudy A (Clear) Urine pH 7.0 (5.0-8.5) Ur Specific [place] >= 1.030 (1.000-1.030) Urine Protein Negative (Negative) Urine Glucose (UA) Trace A (Negative) Urine Ketones Negative (Negative) Urine Blood 3+ A (Negative) Urine Nitrite Negative (Negative) Urine Bilirubin Negative (Negative) Urine Urobilinogen 0.2 (0.2-1.0) Ur Leukocyte Esterase 1+ A (Negative) Urine RBC 25-50 A (0-2) Urine WBC 2-5 (0-5) Ur Squamous Epith Cells Few (None-Few) Urine Bacteria Few A (None) Vaginal Trichomonas No Trichomonas Seen (None Seen) Vaginal Yeast No Yeast Seen (None Seen) Vaginal Clue Cells No Clue Cells Seen (None Seen) Vital signs: Vital Signs - 24 hr 06/16/25 12:25 06/16/25 12:32 06/16/25 12:37 Temperature 98.3 F Pulse Rate 85 Pulse Rate [Right Pulse Oximeter] 99 Respiratory Rate 18 Blood Pressure 125/75 Blood Pressure [Right Upper Arm] 132/78 Pulse Oximetry 98 99 98 Oxygen Delivery Method Room Air 06/16/25 12:42 06/16/25 12:47 06/16/25 12:52 Temperature Pulse Rate Pulse Rate [Right Pulse Oximeter] Respiratory Rate Blood Pressure Blood Pressure [Right Upper Arm] Pulse Oximetry 98 98 98 Oxygen Delivery Method 06/16/25 12:57 06/16/25 13:03 06/16/25 13:08 Temperature Pulse Rate Pulse Rate [Right Pulse Oximeter] Respiratory Rate Blood Pressure Blood Pressure [Right Upper Arm] Pulse Oximetry 98 98 97 Oxygen Delivery Method
--- NOTE | 2025-06-16 17:44 | PC.OBNST ---
NST Note NST Note Start: 06/16/25 12:36 Freq: ONCE Status: Active Protocol: Document 06/16/25 17:43 LP (Rec: 06/16/25 17:44 LP No Response) NST Note 2 Para (# of births) 1 EDC 08/06/25 Gestational Age In 32 Weeks & 5 Days Weeks & Days Patient Presented Pain with Complaint(s) of If Pain, describe constant right lower abdominal pain and lower back pain location throughout Reactive Yes Appropriate for Yes Gestational Age OFELIA Collier, RN Date 06/16/25 Reactive Yes Appropriate for Yes Gestational Age OFELIA Baldwin RN Date 06/16/25 OB NST charge Yes Complete NST Note Yes via Write Note The provider's electronic signature indicates the NST is reactive/appropriate for gestational age. *Note to provider: If an addendum is required, open the patient's chart and click on the note under the Nurse/Allied Health tab.
== END 2025-06-16 17:35 | disposition home or self-care (01) ==
LOC: OB OUT 12:19 → OB 12:20
PROVIDERS: Family Medicine; Visit Provider Obstetrics & Gynecology
DX: O26.893 Other specified pregnancy related conditions, third trimester (principal); R10.31 Right lower quadrant pain; Z3A.32 32 weeks gestation of pregnancy
CPT/HCPCS: 36415; 59025; 74176; 76770; 76819; 80053; 81001; 81003; 85025; 87086; 87210; G0463; A9270; J2270